=== PATIENT | male | born 1960 | race American Indian/Alaskan Native ===

== ENCOUNTER 2016-05-27 02:29 | Emergency (ER) | payer OTHER, BC ==
[2016-05-27 02:35] VITALS: BP 161/87
[2016-05-27] MEDS ORDERED: HYDROmorphone 1 MG/ML Syringe IM ONE (02:52)
[2016-05-27] MEDS ORDERED: methylPREDNISolone Sodium Succinate 125 MG/2 ML SDV IM ONE (02:52)
--- NOTE | 2016-05-27 02:59 | EDM.PDOC ---
ED HPI Trauma - General Chief Complaint: Lower Extremity Injury/Pain Stated Complaint: GOUT FLAREUP Time Seen by Provider: 05/27/16 02:48 Source: Reports: Patient History Limitations: Reports: No limitations - History of Present Illness INITIAL COMMENTS - FREE TEXT/NARRATIVE: This 56 yo male patient reports to the ED with pain in his right great toe. The patient reports a history of gout and has had previous similar flares in the past. The patient took Naproxen while at home with no symptom relief. The patient reports relief of symptom in the past with a steroid injection, pain medication and a prescription for steroids. Symptom Onset Date: 05/26/16 Occurred Where: home Severity: severe Pain/Injury Location: Reports: lower extremity, right Consciousness: Reports: no loss of consciousness Associated Symptoms: Reports: no other symptoms Allergies/ADRs: Allergies bupropion HCl [From Wellbutrin] Allergy (Severe, Verified 05/27/16 02:35) Anaphylactic Shock venom-honey bee [bee venom (honey bee)] Allergy (Verified 05/27/16 02:35) Anaphylactic Shock Home Medications: Ambulatory Orders Metoprolol Tartrate 100 mg PO DAILY 05/17/13 [Confirmed 05/27/16] Multivitamin with Minerals [Multiple Vitamin] 1 tab PO DAILY 05/17/13 [ Confirmed 05/27/16] Quinapril [Accupril] 40 mg PO DAILY 05/17/13 [Confirmed 05/27/16] Albuterol [Proventil Neb Soln] 2.5 mg NEB ASDIRECTED PRN 12/17/14 [Confirmed 07/08] Budesonide [Pulmicort] 0.5 mg NEB ASDIRECTED PRN 12/17/14 [Confirmed 05/27/16] EPINEPHrine [Epinephrine] 1 dose IM ASDIRECTED PRN 12/17/14 [Confirmed 05/27/16] Simvastatin [Simvastatin] 20 mg PO BEDTIME 12/17/14 [Confirmed 05/27/16] Albuterol [Proventil HFA] 2 puff INH Q4HR PRN 05/27/16 [Confirmed 05/27/16] Beclomethasone Dipropionate [Qvar] 8.7 gm IH DAILY 05/27/16 [Confirmed 05/27/16] Furosemide [Lasix] 20 mg PO DAILY 05/27/16 [Confirmed 04/05/17] Umeclidinium Brm/Vilanterol Tr [Anoro Ellipta 62.5-25 Mcg INH] 1 each IH DAILY 05/27/16 [Confirmed 05/27/16] Past Medical History Cardiovascular History: Reports: High cholesterol, Hypertension Respiratory History: Reports: Asthma, COPD Other Genitourinary History: URETEROLITHIASIS; NEPHROLITHIASIS Musculoskeletal History: Reports: Gout Other Musculoskeletal History: LUMBOSACRAL SPONDYLOSIS WITHOUT MYELOPATHY; L1-2 THROUGH L5-S1 DEGENERATIVE DISC DISEASE; MODERATE CENTRAL L1-2 , MODERATE CENTRAL AND BILATERAL FORAMINAL L4-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; 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; Other Dermatologic History: swelling and redness from hornet bite; ONYCHOMYCOSIS OF TOENAIL - Past Surgical History Other GI Surgeries/Procedures: BARIATIC PROCEDURE-LAP BAND; HEMORRHOIDECTOMY; Other Musculoskeletal Surgeries/Procedures:: CARPAL TUNNEL RELEASE, CORTISONE SHOT IN RIGHT SHOULDER Social & Family History - Tobacco Use Smoking Status *Q: Never Smoker Years of Tobacco use: 20 Used Tobacco, but Quit: Yes Month Tobacco Last Used: 03/29/1996 Second Hand Smoke Exposure: No - Alcohol Use Days Per Week of Alcohol Use: 1 Number of Drinks Per Day: 3 Total Drinks Per Week: 3 - Recreational Drug Use Recreational Drug Use: No Drug Use in Last 12 Months: No Review of Systems - Review of Systems Review Of Systems: ROS reveals no pertinent complaints other than HPI. Trauma Exam - Physical Exam Exam: See Below Exam Limited By: No limitations General Appearance: Reports: alert, WD/WN, moderate distress Head: Reports: atraumatic, normocephalic Eyes: bilateral eye: EOMI, normal inspection, PERRL Ears: Reports: normal external exam, normal canal, hearing grossly normal, normal TMs Nose: Reports: normal inspection, normal mucousa, no blood Throat/Mouth: Reports: Normal inspection, Normal lips, Normal teeth, Normal gums , Normal oropharynx, Normal voice, No airway compromise Neck: Reports: non-tender, full range of motion, normal alignment, normal inspection Respiratory Exam: Reports: no respiratory distress, lungs clear, normal breath sounds Cardiovascular: Reports: normal peripheral pulses, regular rate, rhythm, no edema, no gallop, no JVD, no murmur, no rub GI/Abdominal: Reports: normal bowel sounds, soft, non tender, no organomegaly, no distention, no abnormal bruit, no mass (Male) Exam: Deferred Rectal (Males) Exam: Deferred Back: Reports: full range of motion, normal inspection, non-tender Extremities: Reports: pain with movement, tenderness (Right great toe erythema with tenderness), unable to bear weight 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, no motor/sensory deficits, alert , normal mood/affect, oriented x 3 Skin: Reports: Normal color, Warm/dry Course - Vital Signs Last Recorded V/S: Last Vital Signs Temp 35.5 C 05/27/16 02:31 Pulse 79 05/27/16 02:31 Resp 18 05/27/16 02:31 BP 161/87 H 05/27/16 02:31 Pulse Ox 100 05/27/16 02:31 - Orders/Labs/Meds Meds: Medications Discontinued Medications Generic Name Dose Route Start Last Admin Trade Name Freq PRN Reason Stop Dose Admin Hydromorphone HCl 1 mg 05/27/16 02:52 Dilaudid IM 05/27/16 02:53 ONETIME ONE Methylprednisolone Sodium Succinate 125 mg 05/27/16 02:52 Solu-Medrol IM 05/27/16 02:53 ONETIME ONE Departure - Departure Time of Disposition: 02:56 Disposition: Home, Self-Care 01 Condition: fair Clinical Impression: Gout flare Qualifiers: Gout site: toe Gout etiology: unspecified cause Laterality: right Qualified Code(s): M10.9 - Gout, unspecified Instructions: Gout, [id number] Forms: ED Department Discharge Care Plan Goals: The patient was advised of the examination results during the visit. The patient was given an injection of Dilaudid and an injection of Solu-Medrol while in the ED. The patient was discharged with a script for Prednisone (20 mg ) #10 to take 2 by mouth daily for 5 days. If the patient has any additional symptoms or concerns, the patient should follow-up with his primary care facility or return to the emergency department.
== END 2016-05-27 03:09 | disposition home or self-care (01) ==
LOC: DL.ED 02:29
DX: M10.9 Gout, unspecified (principal); E78.00 Pure hypercholesterolemia, unspecified; I10 Essential (primary) hypertension; J45.909 Unspecified asthma, uncomplicated; J44.9 Chronic obstructive pulmonary disease, unspecified; Z98.84 Bariatric surgery status; Z91.030 Bee allergy status; Z88.8 Allergy status to other drugs, medicaments and biological substances
CPT/HCPCS: 96372; 99283; J1170; J2930

== ENCOUNTER 2016-09-26 10:45 | Emergency (ER) | payer OTHER, BC ==
[2016-09-26 11:06] VITALS: BP 150/104
[2016-09-26] MEDS ORDERED: Acetaminophen/HYDROcodone 325-10 MG Tab PO ONE (11:25)
--- NOTE | 2016-09-26 11:30 | EDM.PDOC ---
Scribed by Marium Hansen 09/26/[address] MD ED HPI GENERAL MEDICAL PROBLEM - General Chief Complaint: Lower Extremity Injury/Pain Stated Complaint: [id number] FELL OFF OF HIS DECK Time Seen by Provider: 09/26/16 10:50 Source of Information: Reports: Patient, RN, RN Notes Reviewed History Limitations: Reports: No Limitations - History of Present Illness INITIAL COMMENTS - FREE TEXT/NARRATIVE: Tripped on last step of deck this morning and "rolled" right foot. Denies any other injury. Very painful to bear weight. Onset: Today Location: Reports: Lower Extremity, Right Quality: Reports: Ache Severity: Severe Improves with: Reports: None Worsens with: Reports: None Associated Symptoms: Reports: No Other Symptoms Right Feet Pain Score (Numeric/FACES): 7 - Related Data Allergies Allergy/AdvReac Type Severity Reaction Status Date / Time bupropion HCl Allergy Severe Anaphylactic Verified 09/26/16 10:58 [From Wellbutrin] Shock venom-honey bee Allergy Anaphylactic Verified 09/26/16 10:58 [bee venom (honey bee)] Shock Home Meds: Home Meds Metoprolol Tartrate 100 mg PO DAILY 05/17/13 [History] Multivitamin with Minerals [Multiple Vitamin] 1 tab PO DAILY 05/17/13 [History] Quinapril [Accupril] 40 mg PO DAILY 05/17/13 [History] Albuterol [Proventil Neb Soln] 2.5 mg NEB ASDIRECTED PRN 12/17/14 [History] Budesonide [Pulmicort] 0.5 mg NEB ASDIRECTED PRN 12/17/14 [History] EPINEPHrine [Epinephrine] 1 dose IM ASDIRECTED PRN 12/17/14 [History] Simvastatin [Simvastatin] 20 mg PO BEDTIME 12/17/14 [History] Albuterol [Proventil HFA] 2 puff INH Q4HR PRN 05/27/16 [History] Beclomethasone Dipropionate [Qvar] 8.7 gm IH DAILY 05/27/16 [History] Furosemide [Lasix] 20 mg PO DAILY 05/27/16 [History] Umeclidinium Brm/Vilanterol Tr [Anoro Ellipta 62.5-25 Mcg INH] 1 each IH DAILY 05/27/16 [History] Past Medical History HEENT History: Reports: None Cardiovascular History: Reports: High Cholesterol, Hypertension Respiratory History: Reports: Asthma, COPD Gastrointestinal History: Reports: None Other Genitourinary History: URETEROLITHIASIS; NEPHROLITHIASIS Musculoskeletal History: Reports: Gout Other Musculoskeletal History: LUMBOSACRAL SPONDYLOSIS WITHOUT MYELOPATHY; L1-2 THROUGH L5-S1 DEGENERATIVE DISC DISEASE; MODERATE CENTRAL L1-2 , MODERATE CENTRAL AND BILATERAL FORAMINAL L4-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; 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; Neurological History: Reports: None Psychiatric History: Reports: None Endocrine/Metabolic History: Reports: None Hematologic History: Reports: None Immunologic History: Reports: None Oncologic (Cancer) History: Reports: None Other Dermatologic History: swelling and redness from hornet bite; ONYCHOMYCOSIS OF TOENAIL - Infectious Disease History Infectious Disease History: Reports: Chicken Pox, Measles - Past Surgical History Other GI Surgeries/Procedures: BARIATIC PROCEDURE-LAP BAND; HEMORRHOIDECTOMY; Other Musculoskeletal Surgeries/Procedures:: CARPAL TUNNEL RELEASE, CORTISONE SHOT IN RIGHT SHOULDER Social & Family History - Tobacco Use Smoking Status *Q: Former Smoker Years of Tobacco use: 20 Packs/Tins Daily: 3 Used Tobacco, but Quit: Yes Month Tobacco Last Used: february Second Hand Smoke Exposure: No - Caffeine Use Caffeine Use: Reports: Coffee, Tea - Alcohol Use Days Per Week of Alcohol Use: 1 Number of Drinks Per Day: 3 Total Drinks Per Week: 3 - Recreational Drug Use Recreational Drug Use: No Drug Use in Last 12 Months: No Review of Systems - Review of Systems Review Of Systems: ROS reveals no pertinent complaints other than HPI. ED EXAM, GENERAL - Physical Exam Exam: See Below Exam Limited By: No Limitations General Appearance: Alert, WD/WN, No Apparent Distress, Obese Neck: Normal Inspection, Supple, Non-Tender, Full Range of Motion Respiratory/Chest: No Respiratory Distress Back Exam: Normal Inspection, Full Range of Motion, NT Extremities: Other (pain and swelling to right lateral midfoot. Tender aft right lateral ankle and foot. Skin intact.) Psychiatric: Normal Affect, Normal Mood Skin Exam: Warm, Dry, Intact, Normal Color, No Rash Course - Vital Signs Last Recorded V/S: Last Vital Signs Temp 36 C 09/26/16 10:54 Pulse 113 H 09/26/16 10:54 Resp 16 09/26/16 10:54 BP 150/104 H 09/26/16 11:05 Pulse Ox 97 09/26/16 10:54 - Orders/Labs/Meds Orders: Active Orders 24 hr Category Date Time Status Ankle Min 3V Rt [CR] Urgent Exams 09/26/16 11:07 Taken Foot Comp Min 3V Rt [CR] Urgent Exams 09/26/16 11:07 Taken Acetaminophen/HYDROcodone [Elton 325-10 MG] Med 09/26/16 11:25 Once 1 tab PO ONETIME ONE DME for Discharge [COMM] Routine Oth 09/26/16 11:24 Ordered DME for Discharge [COMM] Routine Oth 09/26/16 11:24 Ordered - Radiology Interpretation Free Text/Narrative:: X-ray right foot: Proximal 5th metatarsal fracture. See rad report. X-ray right ankle: No fracture. See rad report. Departure - Departure Time of Disposition: 11:26 Disposition: Home, Self-Care 01 Condition: Good Clinical Impression: Fracture of fifth metatarsal bone of right foot - Discharge Information Instructions: Metatarsal Fracture Forms: ED Department Discharge Additional Instructions: RX: Hydrocodone APAP 5mg/325mg. Wear the splint boot, remove only to shower. No weight bearing on the right foot, use crutches. Follow with Dr. Malu Messina. Call Wednesday to schedule an appointment. I have read and agree with the documentation that has been completed regarding this visit. By signing this record, I attest that the documentation was completed in my physical presence and is an accurate record of the encounter.
== END 2016-09-26 11:52 | disposition home or self-care (01) ==
LOC: DL.ED 10:45
DX: S92.351A Displaced fracture of fifth metatarsal bone, right foot, initial encounter for closed fracture (principal); E78.00 Pure hypercholesterolemia, unspecified; I10 Essential (primary) hypertension; J44.9 Chronic obstructive pulmonary disease, unspecified; J45.909 Unspecified asthma, uncomplicated; Z98.84 Bariatric surgery status; Z87.891 Personal history of nicotine dependence; Z88.8 Allergy status to other drugs, medicaments and biological substances; Z91.030 Bee allergy status; Z79.899 Other long term (current) drug therapy; W18.40XA Slipping, tripping and stumbling without falling, unspecified, initial encounter
CPT/HCPCS: 73610; 73630; 99284; A9270

== ENCOUNTER 2017-01-16 22:49 | Emergency (ER) | payer OTHER, BC ==
[2017-01-16 23:02] VITALS: BP 164/94
[2017-01-16] MEDS ORDERED: HYDROmorphone 1 MG/ML Syringe IM ONE (23:14)
[2017-01-16] MEDS ORDERED: methylPREDNISolone Sodium Succinate 125 MG/2 ML SDV IM ONE (23:14)
--- NOTE | 2017-01-16 23:18 | EDM.PDOC ---
ED HPI GENERAL MEDICAL PROBLEM - General Chief Complaint: General Stated Complaint: GOUT FLARE UP [id number] Time Seen by Provider: 01/16/17 23:15 Source of Information: Reports: Patient History Limitations: Reports: No Limitations - History of Present Illness INITIAL COMMENTS - FREE TEXT/NARRATIVE: c/o gout flare up. Right Ankle Pain Score (Numeric/FACES): 7 - Related Data Allergies Allergy/AdvReac Type Severity Reaction Status Date / Time bupropion HCl Allergy Severe Anaphylactic Verified 01/16/17 23:02 [From Wellbutrin] Shock venom-honey bee Allergy Anaphylactic Verified 01/16/17 23:02 [bee venom (honey bee)] Shock Home Meds: Home Meds Metoprolol Tartrate 100 mg PO DAILY 05/17/13 [History] Multivitamin with Minerals [Multiple Vitamin] 1 tab PO DAILY 05/17/13 [History] Quinapril [Accupril] 40 mg PO DAILY 05/17/13 [History] Albuterol [Proventil Neb Soln] 2.5 mg NEB ASDIRECTED PRN 12/17/14 [History] Budesonide [Pulmicort] 0.5 mg NEB ASDIRECTED PRN 12/17/14 [History] EPINEPHrine [Epinephrine] 1 dose IM ASDIRECTED PRN 12/17/14 [History] Simvastatin [Simvastatin] 20 mg PO BEDTIME 12/17/14 [History] Albuterol [Proventil HFA] 2 puff INH Q4HR PRN 05/27/16 [History] Beclomethasone Dipropionate [Qvar] 8.7 gm IH DAILY 05/27/16 [History] Furosemide [Lasix] 20 mg PO DAILY 05/27/16 [History] Umeclidinium Brm/Vilanterol Tr [Anoro Ellipta 62.5-25 Mcg INH] 1 each IH DAILY 05/27/16 [History] Allopurinol [Zyloprim] 300 mg PO DAILY 01/16/17 [History] Past Medical History HEENT History: Reports: None Cardiovascular History: Reports: High Cholesterol, Hypertension Respiratory History: Reports: Asthma, COPD Gastrointestinal History: Reports: None Other Genitourinary History: URETEROLITHIASIS; NEPHROLITHIASIS Musculoskeletal History: Reports: Gout Other Musculoskeletal History: LUMBOSACRAL SPONDYLOSIS WITHOUT MYELOPATHY; L1-2 THROUGH L5-S1 DEGENERATIVE DISC DISEASE; MODERATE CENTRAL L1-2 , MODERATE CENTRAL AND BILATERAL FORAMINAL L4-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; 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; Neurological History: Reports: None Psychiatric History: Reports: None Endocrine/Metabolic History: Reports: None Hematologic History: Reports: None Immunologic History: Reports: None Oncologic (Cancer) History: Reports: None Other Dermatologic History: swelling and redness from hornet bite; ONYCHOMYCOSIS OF TOENAIL - Infectious Disease History Infectious Disease History: Reports: Chicken Pox, Measles - Past Surgical History Other GI Surgeries/Procedures: BARIATIC PROCEDURE-LAP BAND; HEMORRHOIDECTOMY; Other Musculoskeletal Surgeries/Procedures:: CARPAL TUNNEL RELEASE, CORTISONE SHOT IN RIGHT SHOULDER Social & Family History - Tobacco Use Smoking Status *Q: Never Smoker Years of Tobacco use: 20 Packs/Tins Daily: 3 Used Tobacco, but Quit: Yes Month Tobacco Last Used: february Second Hand Smoke Exposure: No - Caffeine Use Caffeine Use: Reports: Coffee, Tea - Alcohol Use Days Per Week of Alcohol Use: 1 Number of Drinks Per Day: 3 Total Drinks Per Week: 3 - Recreational Drug Use Recreational Drug Use: No Drug Use in Last 12 Months: No ED ROS GENERAL - Review of Systems Review Of Systems: ROS reveals no pertinent complaints other than HPI. ED EXAM, GENERAL - Physical Exam Exam: See Below Exam Limited By: No Limitations General Appearance: Alert, WD/WN, Mild Distress, Moderate Distress, Other (pain) Ears: Hearing Grossly Normal Throat/Mouth: Normal Voice, No Airway Compromise Head: Atraumatic Neck: Non-Tender, Full Range of Motion Respiratory/Chest: No Respiratory Distress Cardiovascular: Regular Rate, Rhythm GI/Abdominal: Soft, Non-Tender Extremities: Other (right foot swollen with redness over big toe. ) Neurological: Alert, Oriented, Normal Cognition, No Motor/Sensory Deficits, Other (gait limited to pain) Psychiatric: Tearful Skin Exam: Warm, Dry, Normal Color Lymphatic: No Adenopathy Course - Vital Signs Last Recorded V/S: Last Vital Signs Temp 36.3 C 01/16/17 22:53 Pulse 92 01/16/17 22:53 Resp 20 01/16/17 22:53 BP 164/94 H 01/16/17 22:53 Pulse Ox 98 01/16/17 22:53 - Orders/Labs/Meds Meds: Medications Discontinued Medications Generic Name Dose Route Start Last Admin Trade Name Freddie PRN Reason Stop Dose Admin Hydromorphone HCl 1 mg 01/16/17 23:14 Dilaudid IM 01/16/17 23:15 ONETIME ONE Methylprednisolone Sodium Succinate 125 mg 01/16/17 23:14 Solu-Medrol IM 01/16/17 23:15 ONETIME ONE Departure - Departure Time of Disposition: 23:17 Disposition: Home, Self-Care 01 Condition: Good Clinical Impression: Gout flare Qualifiers: Gout site: toe Gout etiology: unspecified cause Laterality: right Qualified Code(s): M10.9 - Gout, unspecified - Discharge Information Instructions: Gout, [id number] Additional Instructions: 1) elevate leg as much as possible 2) try heat to sore area 3) follow up at clinic rx given; prednisone 20mg bid x 5 days
== END 2017-01-16 23:37 | disposition home or self-care (01) ==
LOC: DL.ED 22:49
DX: M10.9 Gout, unspecified (principal); I10 Essential (primary) hypertension; Z88.6 Allergy status to analgesic agent; Z91.030 Bee allergy status; Z79.899 Other long term (current) drug therapy
CPT/HCPCS: 96372; 99283; J1170; J2930

== ENCOUNTER 2017-06-20 14:34 | Emergency (ER) | payer OTHER, BC ==
--- NOTE | 2017-06-20 15:35 | EDM.PDOC ---
ED HPI GENERAL MEDICAL PROBLEM - General Chief Complaint: Lower Extremity Injury/Pain Stated Complaint: [id number] GOUT Time Seen by Provider: 06/20/17 15:05 Source of Information: Reports: Patient, Family, RN, RN Notes Reviewed History Limitations: Reports: No Limitations - History of Present Illness INITIAL COMMENTS - FREE TEXT/NARRATIVE: Pt presents to the ER with c/o a flare up of gout. He states he is on Allopurinol daily. Pt states he has not eaten or drank anything that should make him have a gout flare up. Pt c/o pain in the left big toe and ankle area. He rates the pain 9/10 when he is standing on it. Denies fever or chills, N/V/D , cp or sob. Onset: Gradual Left Feet Pain Score (Numeric/FACES): 9 - Related Data Allergies Allergy/AdvReac Type Severity Reaction Status Date / Time bupropion HCl Allergy Severe Anaphylactic Verified 06/20/17 14:48 [From Wellbutrin] Shock venom-honey bee Allergy Anaphylactic Verified 06/20/17 14:48 [bee venom (honey bee)] Shock Home Meds: Home Meds Metoprolol Tartrate 100 mg PO DAILY 05/17/13 [History] Multivitamin with Minerals [Multiple Vitamin] 1 tab PO DAILY 05/17/13 [History] Quinapril [Accupril] 40 mg PO DAILY 05/17/13 [History] Albuterol [Proventil Neb Soln] 2.5 mg NEB ASDIRECTED PRN 12/17/14 [History] Budesonide [Pulmicort] 0.5 mg NEB ASDIRECTED PRN 12/17/14 [History] EPINEPHrine [Epinephrine] 1 dose IM ASDIRECTED PRN 12/17/14 [History] Simvastatin 20 mg PO BEDTIME 12/17/14 [History] Albuterol [Proventil HFA] 2 puff INH Q4HR PRN 05/27/16 [History] Beclomethasone Dipropionate [Qvar] 2 puff IH BID 05/27/16 [History] Furosemide [Lasix] 20 mg PO DAILY 05/27/16 [History] Umeclidinium Brm/Vilanterol Tr [Anoro Ellipta 62.5-25 Mcg INH] 1 each IH DAILY 05/27/16 [History] Allopurinol [Zyloprim] 300 mg PO DAILY 01/16/17 [History] Past Medical History HEENT History: Reports: None Cardiovascular History: Reports: High Cholesterol, Hypertension Respiratory History: Reports: Asthma, COPD Gastrointestinal History: Reports: None Other Genitourinary History: URETEROLITHIASIS; NEPHROLITHIASIS Musculoskeletal History: Reports: Gout Other Musculoskeletal History: LUMBOSACRAL SPONDYLOSIS WITHOUT MYELOPATHY; L1-2 THROUGH L5-S1 DEGENERATIVE DISC DISEASE; MODERATE CENTRAL L1-2 , MODERATE CENTRAL AND BILATERAL FORAMINAL L4-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; 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; Neurological History: Reports: None Psychiatric History: Reports: None Endocrine/Metabolic History: Reports: None Hematologic History: Reports: None Immunologic History: Reports: None Oncologic (Cancer) History: Reports: None Other Dermatologic History: swelling and redness from hornet bite; ONYCHOMYCOSIS OF TOENAIL - Infectious Disease History Infectious Disease History: Reports: Chicken Pox, Measles - Past Surgical History Other GI Surgeries/Procedures: BARIATIC PROCEDURE-LAP BAND; HEMORRHOIDECTOMY; Other Musculoskeletal Surgeries/Procedures:: CARPAL TUNNEL RELEASE, CORTISONE SHOT IN RIGHT SHOULDER Social & Family History - Tobacco Use Smoking Status *Q: Former Smoker Years of Tobacco use: 20 Packs/Tins Daily: 3 Used Tobacco, but Quit: Yes Month/Year Tobacco Last Used: february Second Hand Smoke Exposure: No - Caffeine Use Caffeine Use: Reports: Coffee, Tea - Alcohol Use Days Per Week of Alcohol Use: 1 Number of Drinks Per Day: 3 Total Drinks Per Week: 3 - Recreational Drug Use Recreational Drug Use: No Drug Use in Last 12 Months: No Review of Systems - Review of Systems Review Of Systems: ROS reveals no pertinent complaints other than HPI. ED EXAM, GENERAL - Physical Exam Exam: See Below Exam Limited By: No Limitations General Appearance: Alert, WD/WN, Mild Distress Eye Exam: Bilateral Eye: EOMI, Normal Inspection Ears: Normal External Exam, Hearing Grossly Normal Nose: Normal Inspection Throat/Mouth: Normal Inspection, Normal Voice, No Airway Compromise Head: Atraumatic, Normocephalic Neck: Normal Inspection Respiratory/Chest: No Respiratory Distress, Lungs Clear, Normal Breath Sounds Cardiovascular: Normal Peripheral Pulses, Regular Rate, Rhythm, No Gallop, No JVD, No Murmur, No Rub Peripheral Pulses: 2+: Dorsalis Pedis (L), Dorsalis Pedis (R) GI/Abdominal: Normal Bowel Sounds, Soft, Non-Tender (Male) Exam: Deferred Rectal (Males) Exam: Deferred Back Exam: Normal Inspection, Full Range of Motion Extremities: Normal Capillary Refill, Pedal Edema (+1), Limited Range of Motion , Other (Foot pain to the left big toe joints, and left ankle) Neurological: Alert, Oriented, CN II-XII Intact, Normal Cognition, Normal Gait, Normal Reflexes, No Motor/Sensory Deficits Psychiatric: Normal Affect, Normal Mood Skin Exam: Warm, Dry, Intact, Normal Color, No Rash Lymphatic: No Adenopathy Course - Vital Signs Last Recorded V/S: Last Vital Signs Temp 99.9 F 06/20/17 17:04 Pulse 108 H 06/20/17 17:04 Resp 20 06/20/17 17:04 BP 140/77 06/20/17 17:04 Pulse Ox 98 06/20/17 17:04 - Orders/Labs/Meds Orders: Active Orders 24 hr Category Date Time Status CULTURE BLOOD [BC] Stat Lab 06/20/17 16:23 Received Labs: Laboratory Tests 06/20/17 06/20/17 06/20/17 Range/Units 15:16 15:16 15:16 WBC 12.3 H (5.0-10.0) 10^3/uL RBC 4.91 (4.6-6.2) 10^6/uL Hgb 14.3 (14.0-18.0) g/dL Hct 42.5 (40.0-54.0) % MCV 86.6 (80-100) fL MCH 29.1 (27.0-34.0) pg MCHC 33.6 (33.0-35.0) g/dL Plt Count 264 (150-450) 10^3/uL Neut % (Auto) 68.9 (42.2-75.2) % Lymph % (Auto) 18.9 L (20.5-50.1) % [place] % (Auto) 9.8 H (2-8) % Eos % (Auto) 2.0 (1.0-3.0) % Baso % (Auto) 0.4 (0.0-1.0) % ESR 20 H (0-15) mm/hr Sodium 138 (135-145) mmol/L Potassium 4.4 (3.6-5.0) mmol/L Chloride 102 (101-111) mmol/L Carbon Dioxide 28.0 (21.0-31.0) mmol/L Anion Gap 12.4 BUN 11 (7-18) mg/dL Creatinine 1.0 (0.6-1.3) mg/dL Est Cr Clr Drug Dosing 89.46 mL/min Estimated GFR (MDRD) > 60 BUN/Creatinine Ratio 11.00 Glucose 131 H (74-105) mg/dL Lactic Acid (0.5-2.2) mmol/L Uric Acid 6.5 (2.6-7.2) mg/dL Calcium 9.4 (8.4-10.2) mg/dl Total Bilirubin 1.0 (0.2-1.0) mg/dL AST 48 H (10-42) IU/L ALT 57 (10-60) IU/L Alkaline Phosphatase 59 (42-121) IU/L C-Reactive Protein (0.0-1.3) mg/dL Total Protein 7.7 (6.7-8.2) g/dl Albumin 4.2 (3.2-5.5) g/dl Globulin 3.5 Albumin/Globulin Ratio 1.20 06/20/17 06/20/17 Range/Units 15:16 16:23 WBC (5.0-10.0) 10^3/uL RBC (4.6-6.2) 10^6/uL Hgb (14.0-18.0) g/dL Hct (40.0-54.0) % MCV (80-100) fL MCH (27.0-34.0) pg MCHC (33.0-35.0) g/dL Plt Count (150-450) 10^3/uL Neut % (Auto) (42.2-75.2) % Lymph % (Auto) (20.5-50.1) % [place] % (Auto) (2-8) % Eos % (Auto) (1.0-3.0) % Baso % (Auto) (0.0-1.0) % ESR (0-15) mm/hr Sodium (135-145) mmol/L Potassium (3.6-5.0) mmol/L Chloride (101-111) mmol/L Carbon Dioxide (21.0-31.0) mmol/L Anion Gap BUN (7-18) mg/dL Creatinine (0.6-1.3) mg/dL Est Cr Clr Drug Dosing mL/min Estimated GFR (MDRD) BUN/Creatinine Ratio Glucose (74-105) mg/dL Lactic Acid 1.6 (0.5-2.2) mmol/L Uric Acid (2.6-7.2) mg/dL Calcium (8.4-10.2) mg/dl Total Bilirubin (0.2-1.0) mg/dL AST (10-42) IU/L ALT (10-60) IU/L Alkaline Phosphatase (42-121) IU/L C-Reactive Protein 8.2 H (0.0-1.3) mg/dL Total Protein (6.7-8.2) g/dl Albumin (3.2-5.5) g/dl Globulin Albumin/Globulin Ratio Meds: Medications Discontinued Medications Generic Name Dose Route Start Last Admin Trade Name Rohithq PRN Reason Stop Dose Admin Methylprednisolone Sodium Succinate 125 mg 06/20/17 16:55 06/20/17 17:02 Solu-Medrol IM 06/20/17 16:56 125 mg ONETIME ONE Administration Departure - Departure Time of Disposition: 17:08 Disposition: Home, Self-Care 01 Condition: Fair Clinical Impression: Inflammatory arthritis - Discharge Information Instructions: Arthritis, Ubbm-se-Rzal, Joint Pain, Hnji-on-Rvjy Forms: ED Department Discharge Additional Instructions: RX: Prednisone Follow up with your primary care facility Ibuprofen 600-800mg every 8 hours for 1 week. Be sure to take with food. - My Orders Last 24 Hours: My Active Orders 06/20/17 16:23 CULTURE BLOOD [BC] Stat - Assessment/Plan Last 24 Hours: My Active Orders 06/20/17 16:23 CULTURE BLOOD [BC] Stat
[2017-06-20 15:42] LABS: CHLORIDE,CL 102 mmol/L (101-111); SODIUM,NA 138 mmol/L (135-145)
--- NOTE | 2017-06-20 16:16 | CR ---
Clinical history: 57-year-old male pain left foot and ankle (no known injury). Interpretation: Homogeneous normal bone density. Mild pes cavus and small bone spurs at the insertion of the Achilles tendon and plantar aponeurosis o n the os calcis (heel spurs). No sign of foreign body or inflammatory periostitis and no appreciable arthritic degenerative changes . Mild soft tissue swelling over the dorsum of foot but no sign of underlying fracture or dislocation. No pathologic skeletal lesions. CONCLUSION: Prominent heel spurs. Mild soft tissue swelling dorsum of foot but no sign of underlying fracture or infection. No signific ant arthritic degenerative change.
[2017-06-20] MEDS ORDERED: methylPREDNISolone Sodium Succinate 125 MG/2 ML SDV IM ONE (16:55)
[2017-06-20 17:12] VITALS: BP 140/77
== END 2017-06-20 17:09 | disposition home or self-care (01) ==
LOC: DL.ED 14:34
DX: M19.072 Primary osteoarthritis, left ankle and foot (principal); E78.00 Pure hypercholesterolemia, unspecified; I10 Essential (primary) hypertension; Z88.8 Allergy status to other drugs, medicaments and biological substances; Z91.030 Bee allergy status; Z79.899 Other long term (current) drug therapy; Z87.891 Personal history of nicotine dependence
CPT/HCPCS: 36415; 73630; 80053; 83605; 84550; 85025; 85651; 86140; 87040; 96372; 99283; J2930

== ENCOUNTER 2019-01-22 08:06 | Inpatient (IN) | payer OTHER, BC ==
[2019-01-22] MEDS ORDERED: Albuterol/Ipratropium 3.0-0.5 MG/3 ML Neb Soln NEB ONE (08:57)
--- NOTE | 2019-01-22 09:15 | EDM.PDOC ---
ED HPI GENERAL MEDICAL PROBLEM - General Chief Complaint: Respiratory Problem Stated Complaint: PNEUMONIA Time Seen by Provider: 01/22/19 08:50 Source of Information: Reports: Patient History Limitations: Reports: No Limitations - History of Present Illness INITIAL COMMENTS - FREE TEXT/NARRATIVE: This 58 yo male patient reports to the ED with increased shortness of breath and a productive cough. The patient reports his chest cold started last week. The patient was seen Wednesday (02/19/19) at the [facility], diagnosed with the "start of pneumonia", given Rocephin shot, started on Doxycline and Prednisone. The patient reports he has been doing his nebulizer treatments used at 0700, but getting no relief. The patient reports he is currently not having pain. The patient reports he is having a hard time breathing and has been using accessory muscles to breath. The patient has been coughing up brownish sputum. The patient reports he has a history of COPD and Asthma. The patient reports he has a weak immune system. The patient reports he has been taking his medications as prescribed, but getting no relief. 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, Home Treatments, Other Medication (s) - Related Data Allergies Allergy/AdvReac Type Severity Reaction Status Date / Time bupropion HCl Allergy Severe Anaphylactic Verified 01/22/19 08:18 [From Wellbutrin] Shock Home Meds: Home Meds Metoprolol Tartrate 100 mg PO DAILY 05/17/13 [History] Multivitamin with Minerals [Multiple Vitamin] 1 tab PO DAILY 05/17/13 [History] Quinapril [Accupril] 40 mg PO DAILY 05/17/13 [History] Albuterol [Proventil Neb Soln] 2.5 mg NEB ASDIRECTED PRN 12/17/14 [History] Budesonide [Pulmicort] 0.5 mg NEB ASDIRECTED PRN 12/17/14 [History] Simvastatin 20 mg PO BEDTIME 12/17/14 [History] Albuterol [Proventil HFA] 2 puff INH Q4HR PRN 05/27/16 [History] Beclomethasone Dipropionate [Qvar] 2 puff IH BID 05/27/16 [History] Umeclidinium Brm/Vilanterol Tr [Anoro Ellipta 62.5-25 Mcg INH] 1 each IH DAILY 05/27/16 [History] Allopurinol [Zyloprim] 300 mg PO DAILY 01/16/17 [History] Past Medical History HEENT History: Reports: None Cardiovascular History: Reports: High Cholesterol, Hypertension Respiratory History: Reports: Asthma, COPD Gastrointestinal History: Reports: None Other Genitourinary History: URETEROLITHIASIS; NEPHROLITHIASIS Musculoskeletal History: Reports: Gout Other Musculoskeletal History: LUMBOSACRAL SPONDYLOSIS WITHOUT MYELOPATHY; L1-2 THROUGH L5-S1 DEGENERATIVE DISC DISEASE; MODERATE CENTRAL L1-2 , MODERATE CENTRAL AND BILATERAL FORAMINAL L4-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; 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; Neurological History: Reports: None Psychiatric History: Reports: None Endocrine/Metabolic History: Reports: None Hematologic History: Reports: None Immunologic History: Reports: None Oncologic (Cancer) History: Reports: None Other Dermatologic History: swelling and redness from hornet bite; ONYCHOMYCOSIS OF TOENAIL - Infectious Disease History Infectious Disease History: Reports: Chicken Pox, Measles - Past Surgical History Other GI Surgeries/Procedures: BARIATIC PROCEDURE-LAP BAND; HEMORRHOIDECTOMY; Other Musculoskeletal Surgeries/Procedures:: CARPAL TUNNEL RELEASE, CORTISONE SHOT IN RIGHT SHOULDER Social & Family History - Tobacco Use Smoking Status *Q: Former Smoker Years of Tobacco use: 20 Packs/Tins Daily: 2 Used Tobacco, but Quit: No Month/Year Tobacco Last Used: february Second Hand Smoke Exposure: No - Caffeine Use Caffeine Use: Reports: Coffee, Tea - Recreational Drug Use Recreational Drug Use: No ED ROS GENERAL - Review of Systems Review Of Systems: Comprehensive ROS is negative, except as noted in HPI. ED EXAM, GENERAL - Physical Exam Exam: See Below Exam Limited By: No Limitations General Appearance: Alert, WD/WN, Moderate Distress, Obese Eye Exam: Bilateral Eye: EOMI, Normal Inspection, PERRL Ears: Normal External Exam, Normal Canal, Hearing Grossly Normal, Normal TMs Nose: Normal Inspection, Normal Mucosa, No Blood Throat/Mouth: Normal Inspection, Normal Lips, Normal Teeth, Normal Gums, Normal Oropharynx, Normal Voice, No Airway Compromise Head: Atraumatic, Normocephalic Neck: Normal Inspection, Supple, Non-Tender, Full Range of Motion Respiratory/Chest: Rhonchi, Wheezing, Prolonged Expiration Cardiovascular: Normal Peripheral Pulses, Regular Rate, Rhythm, No Edema, No Gallop, No JVD, No Murmur, No Rub GI/Abdominal: Normal Bowel Sounds, Soft, Non-Tender, No Organomegaly, No Distention, No Abnormal Bruit, No Mass, Other (obese) (Male) Exam: Deferred Rectal (Males) Exam: Deferred Back Exam: Normal Inspection, Full Range of Motion, NT Extremities: Normal Inspection, Normal Range of Motion, Non-Tender, Normal Capillary Refill, No Pedal Edema Neurological: Alert, Oriented, CN II-XII Intact, Normal Cognition, Normal Gait, Normal Reflexes, No Motor/Sensory Deficits Psychiatric: Normal Affect, Normal Mood Skin Exam: Warm, Dry, Intact, Normal Color, No Rash Lymphatic: No Adenopathy Course - Vital Signs Last Recorded V/S: Last Vital Signs Temp 36.7 C 01/22/19 08:12 Pulse 85 01/22/19 09:03 Resp 20 01/22/19 08:12 BP 163/101 H 01/22/19 08:12 Pulse Ox 93 L 01/22/19 08:12 - Orders/Labs/Meds Orders: Active Orders 24 hr Category Date Time Status EKG Documentation Completion [RC] URGENT Care 01/22/19 08:26 Active RT Aerosol Therapy [RC] ASDIRECTED Care 01/22/19 08:57 Ordered CULTURE BLOOD [BC] Stat Lab 01/22/19 08:26 Ordered CULTURE BLOOD [BC] Stat Lab 01/22/19 09:19 Ordered Labs: Laboratory Tests 01/22/19 01/22/19 01/22/19 Range/Units 08:48 08:48 08:48 WBC 8.3 (5.0-10.0) 10^3/uL RBC 4.71 (4.6-6.2) 10^6/uL Hgb 14.1 (14.0-18.0) g/dL Hct 42.2 (40.0-54.0) % MCV 89.6 D (80-100) fL MCH 29.9 (27.0-34.0) pg MCHC 33.4 (33.0-35.0) g/dL Plt Count 227 (150-450) 10^3/uL Neut % (Auto) 65.6 (42.2-75.2) % Lymph % (Auto) 21.7 (20.5-50.1) % [place] % (Auto) 11.2 H (2-8) % Eos % (Auto) 1.1 (1.0-3.0) % Baso % (Auto) 0.4 (0.0-1.0) % Sodium 138 (135-145) mmol/L Potassium 4.0 (3.6-5.0) mmol/L Chloride 100 L (101-111) mmol/L Carbon Dioxide 29.0 (21.0-31.0) mmol/L Anion Gap 13.0 BUN 10 (7-18) mg/dL Creatinine 0.9 (0.6-1.3) mg/dL Est Cr Clr Drug Dosing 95.29 mL/min Estimated GFR (MDRD) > 60 BUN/Creatinine Ratio 11.11 Glucose 143 H (74-105) mg/dL Lactic Acid 2.3 H (0.5-2.2) mmol/L Calcium 8.8 (8.4-10.2) mg/dl Total Bilirubin 1.1 H (0.2-1.0) mg/dL AST 29 (10-42) IU/L ALT 38 (10-60) IU/L Alkaline Phosphatase 62 (42-121) IU/L Troponin I < 0.02 (0.00-0.02) ng/ml B-Natriuretic Peptide (0-100) pg/ml Total Protein 7.5 (6.7-8.2) g/dl Albumin 4.0 (3.2-5.5) g/dl Globulin 3.5 Albumin/Globulin Ratio 1.14 01/22/19 Range/Units 08:48 WBC (5.0-10.0) 10^3/uL RBC (4.6-6.2) 10^6/uL Hgb (14.0-18.0) g/dL Hct (40.0-54.0) % MCV (80-100) fL MCH (27.0-34.0) pg MCHC (33.0-35.0) g/dL Plt Count (150-450) 10^3/uL Neut % (Auto) (42.2-75.2) % Lymph % (Auto) (20.5-50.1) % [place] % (Auto) (2-8) % Eos % (Auto) (1.0-3.0) % Baso % (Auto) (0.0-1.0) % Sodium (135-145) mmol/L Potassium (3.6-5.0) mmol/L Chloride (101-111) mmol/L Carbon Dioxide (21.0-31.0) mmol/L Anion Gap BUN (7-18) mg/dL Creatinine (0.6-1.3) mg/dL Est Cr Clr Drug Dosing mL/min Estimated GFR (MDRD) BUN/Creatinine Ratio Glucose (74-105) mg/dL Lactic Acid (0.5-2.2) mmol/L Calcium (8.4-10.2) mg/dl Total Bilirubin (0.2-1.0) mg/dL AST (10-42) IU/L ALT (10-60) IU/L Alkaline Phosphatase (42-121) IU/L Troponin I (0.00-0.02) ng/ml B-Natriuretic Peptide 10 (0-100) pg/ml Total Protein (6.7-8.2) g/dl Albumin (3.2-5.5) g/dl Globulin Albumin/Globulin Ratio Meds: Medications Discontinued Medications Generic Name Dose Route Start Last Admin Trade Name Freq PRN Reason Stop Dose Admin Albuterol/Ipratropium 3 ml 01/22/19 08:57 01/22/19 09:03 Duoneb 3.0-0.5 Mg/3 Ml NEB 01/22/19 08:58 3 ml ONETIME ONE Administration Departure - Departure Time of Disposition: 09:36 Disposition: Admitted As Inpatient 66 Condition: Poor Clinical Impression: COPD exacerbation Asthma Qualifiers: Asthma severity: moderate Asthma persistence: persistent Asthma complication type: with acute exacerbation Qualified Code(s): J45.41 - Moderate persistent asthma with (acute) exacerbation - Discharge Information *PRESCRIPTION DRUG MONITORING PROGRAM REVIEWED*: Not Applicable *COPY OF PRESCRIPTION DRUG MONITORING REPORT IN PATIENT ROSE: Not Applicable Care Plan Goals: Discussed the patient's history, examination, labs and x-ray results with Dr. Arshad. Dr. Arshad accepted the patient for continued evaluation and treatment as an observation patient at [facility]. - My Orders Last 24 Hours: My Active Orders 01/22/19 08:26 EKG Documentation Completion [RC] URGENT CULTURE BLOOD [BC] Stat 01/22/19 08:57 RT Aerosol Therapy [RC] ASDIRECTED 01/22/19 09:19 CULTURE BLOOD [BC] Stat - Assessment/Plan Last 24 Hours: My Active Orders 01/22/19 08:26 EKG Documentation Completion [RC] URGENT CULTURE BLOOD [BC] Stat 01/22/19 08:57 RT Aerosol Therapy [RC] ASDIRECTED 01/22/19 09:19 CULTURE BLOOD [BC] Stat
[2019-01-22 09:17] LABS: CHLORIDE,CL 100 mmol/L (101-111); SODIUM,NA 138 mmol/L (135-145)
[2019-01-22] MEDS ORDERED: Albuterol 6.7 GM Inhaler INH PRN (10:30)
[2019-01-22] MEDS ORDERED: methylPREDNISolone Sod Succ 40 MG in Sodium Chloride 0.9% 100 ML IV SCH (10:30)
[2019-01-22] MEDS ORDERED: Albuterol 0.083% 2.5 MG/3 ML Neb Soln NEB PRN ×2 (10:30→12:05)
[2019-01-22] MEDS ORDERED: Budesonide 0.5 MG/2 ML Neb Susp NEB PRN (10:30)
[2019-01-22] MEDS ORDERED: Albuterol/Ipratropium 3.0-0.5 MG/3 ML Neb Soln NEB SCH (10:30)
--- NOTE | 2019-01-22 10:31 | PCM.HP ---
H&P History of Present Illness - General Date of Service: 01/22/19 Admit Problem/Dx: Admission Diagnosis/Problem Admission Diagnosis/Problem COPD not affecting current episode of care - History of Present Illness Initial Comments - Free Text/Narative: Mr. Cavazos is a 58 yo M with past medical history significant for COPD, severe sleep apnea noncompliant with CPAP, morbid obesity, hypertension, gout who presented to the emergency room with COPD exacerbation. Patient said that he developed cold symptoms proximately 1 week ago. Symptoms continued to get worse he got to the point where he is unable to walk for more than few steps without feeling significantly short of breath. Patient presented to the emergency room for further care. In the ED, patient was given nebulizer with some improvement in symptoms. Of note, patient was seen by his primary care provider and was started on prednisone and doxycycline without improvement. On interview, patient said that he does not have any sick contact. He reports noncompliance with CPAP. He quit smoking approximately 20 years ago. - Related Data Allergies/Adverse Reactions: Allergies Allergy/AdvReac Type Severity Reaction Status Date / Time bupropion HCl Allergy Severe Anaphylactic Verified 01/22/19 10:19 [From Wellbutrin] Shock Home Medications: Home Meds Multivitamin with Minerals [Multiple Vitamin] 1 tab PO DAILY 05/17/13 [History] Quinapril [Accupril] 40 mg PO DAILY 05/17/13 [History] Albuterol [Proventil Neb Soln] 2.5 mg NEB ASDIRECTED PRN 12/17/14 [History] Budesonide [Pulmicort] 0.5 mg NEB ASDIRECTED PRN 12/17/14 [History] Simvastatin 20 mg PO BEDTIME 12/17/14 [History] Albuterol [Proventil HFA] 2 puff INH Q4HR PRN 05/27/16 [History] Beclomethasone Dipropionate [Qvar] 2 puff IH BID 05/27/16 [History] Umeclidinium Brm/Vilanterol Tr [Anoro Ellipta 62.5-25 Mcg INH] 1 each IH DAILY 05/27/16 [History] Allopurinol [Zyloprim] 300 mg PO DAILY 01/16/17 [History] Metoprolol Succinate 200 mg PO DAILY 01/22/19 [History] amLODIPine [Norvasc] 5 mg PO DAILY 01/22/19 [History] metFORMIN [Glucophage] 500 mg PO DAILY 01/22/19 [History] Past Medical History HEENT History: Reports: None Cardiovascular History: Reports: High Cholesterol, Hypertension Respiratory History: Reports: Asthma, COPD Gastrointestinal History: Reports: None Other Genitourinary History: URETEROLITHIASIS; NEPHROLITHIASIS Musculoskeletal History: Reports: Gout Other Musculoskeletal History: LUMBOSACRAL SPONDYLOSIS WITHOUT MYELOPATHY; L1-2 THROUGH L5-S1 DEGENERATIVE DISC DISEASE; MODERATE CENTRAL L1-2 , MODERATE CENTRAL AND BILATERAL FORAMINAL L4-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; 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; Neurological History: Reports: None Psychiatric History: Reports: None Endocrine/Metabolic History: Reports: None Hematologic History: Reports: None Immunologic History: Reports: None Oncologic (Cancer) History: Reports: None Other Dermatologic History: swelling and redness from hornet bite; ONYCHOMYCOSIS OF TOENAIL - Infectious Disease History Infectious Disease History: Reports: Chicken Pox, Measles - Past Surgical History Other GI Surgeries/Procedures: BARIATIC PROCEDURE-LAP BAND; HEMORRHOIDECTOMY; Other Musculoskeletal Surgeries/Procedures:: CARPAL TUNNEL RELEASE, CORTISONE SHOT IN RIGHT SHOULDER Social & Family History - Tobacco Use Smoking Status *Q: Former Smoker Years of Tobacco use: 20 Packs/Tins Daily: 2.5 Used Tobacco, but Quit: Yes Month/Year Tobacco Last Used: 12/1998 Second Hand Smoke Exposure: Yes - Caffeine Use Caffeine Use: Reports: Coffee - Alcohol Use Days Per Week of Alcohol Use: 1 Number of Drinks Per Day: 1 Total Drinks Per Week: 1 Date of Last Drink: 01/15/19 Time of Last Drink: 21:00 - Recreational Drug Use Recreational Drug Use: No H&P Review of Systems - Review of Systems: Review Of Systems: Comprehensive ROS is negative, except as noted in HPI. Exam - Exam Exam: See Below - Vital Signs Vital Signs: Last Vital Signs Temp 36.3 C 01/22/19 10:00 Pulse 90 01/22/19 10:00 Resp 24 H 01/22/19 10:00 BP 167/100 H 01/22/19 10:00 Pulse Ox 93 L 01/22/19 10:00 Weight: 150.411 kg - Exam General: Alert, Oriented Lungs: Wheezing Cardiovascular: Regular Rate, Regular Rhythm GI/Abdominal Exam: Normal Bowel Sounds, Soft, Non-Tender Extremities: Normal Inspection, No Pedal Edema Skin: Warm, Dry, Intact Psychiatric: Alert, Normal Affect, Normal Mood - Patient Data Lab Results Last 24 hrs: Laboratory Results - last 24 hr 01/22/19 01/22/19 01/22/19 Range/Units 08:48 08:48 08:48 WBC 8.3 (5.0-10.0) 10^3/uL RBC 4.71 (4.6-6.2) 10^6/uL Hgb 14.1 (14.0-18.0) g/dL Hct 42.2 (40.0-54.0) % MCV 89.6 D (80-100) fL MCH 29.9 (27.0-34.0) pg MCHC 33.4 (33.0-35.0) g/dL Plt Count 227 (150-450) 10^3/uL Neut % (Auto) 65.6 (42.2-75.2) % Lymph % (Auto) 21.7 (20.5-50.1) % [place] % (Auto) 11.2 H (2-8) % Eos % (Auto) 1.1 (1.0-3.0) % Baso % (Auto) 0.4 (0.0-1.0) % Sodium 138 (135-145) mmol/L Potassium 4.0 (3.6-5.0) mmol/L Chloride 100 L (101-111) mmol/L Carbon Dioxide 29.0 (21.0-31.0) mmol/L Anion Gap 13.0 BUN 10 (7-18) mg/dL Creatinine 0.9 (0.6-1.3) mg/dL Est Cr Clr Drug Dosing 95.29 mL/min Estimated GFR (MDRD) > 60 BUN/Creatinine Ratio 11.11 Glucose 143 H (74-105) mg/dL Lactic Acid 2.3 H (0.5-2.2) mmol/L Calcium 8.8 (8.4-10.2) mg/dl Total Bilirubin 1.1 H (0.2-1.0) mg/dL AST 29 (10-42) IU/L ALT 38 (10-60) IU/L Alkaline Phosphatase 62 (42-121) IU/L Troponin I < 0.02 (0.00-0.02) ng/ml B-Natriuretic Peptide (0-100) pg/ml Total Protein 7.5 (6.7-8.2) g/dl Albumin 4.0 (3.2-5.5) g/dl Globulin 3.5 Albumin/Globulin Ratio 1.14 01/22/19 Range/Units 08:48 WBC (5.0-10.0) 10^3/uL RBC (4.6-6.2) 10^6/uL Hgb (14.0-18.0) g/dL Hct (40.0-54.0) % MCV (80-100) fL MCH (27.0-34.0) pg MCHC (33.0-35.0) g/dL Plt Count (150-450) 10^3/uL Neut % (Auto) (42.2-75.2) % Lymph % (Auto) (20.5-50.1) % [place] % (Auto) (2-8) % Eos % (Auto) (1.0-3.0) % Baso % (Auto) (0.0-1.0) % Sodium (135-145) mmol/L Potassium (3.6-5.0) mmol/L Chloride (101-111) mmol/L Carbon Dioxide (21.0-31.0) mmol/L Anion Gap BUN (7-18) mg/dL Creatinine (0.6-1.3) mg/dL Est Cr Clr Drug Dosing mL/min Estimated GFR (MDRD) BUN/Creatinine Ratio Glucose (74-105) mg/dL Lactic Acid (0.5-2.2) mmol/L Calcium (8.4-10.2) mg/dl Total Bilirubin (0.2-1.0) mg/dL AST (10-42) IU/L ALT (10-60) IU/L Alkaline Phosphatase (42-121) IU/L Troponin I (0.00-0.02) ng/ml B-Natriuretic Peptide 10 (0-100) pg/ml Total Protein (6.7-8.2) g/dl Albumin (3.2-5.5) g/dl Globulin Albumin/Globulin Ratio Result Diagrams: 01/22/19 08:48 01/22/19 08:48 Problem List Initiated/Reviewed/Updated: Yes Orders Last 24hrs: Active Orders 24 hr Category Date Time Status Admission Diagnosis [ADT] Urgent ADT 01/22/19 09:40 Ordered Admission Status [Patient Status] [ADT] Routine ADT 01/22/19 09:40 Active Admission Status [Patient Status] [ADT] Routine ADT 01/22/19 09:41 Active Cardiac Monitoring [RC] CONTINUOUS Care 01/22/19 10:26 Ordered EKG Documentation Completion [RC] URGENT Care 01/22/19 08:26 Active Intake and Output [RC] QSHIFT Care 01/22/19 10:26 Ordered Oxygen Therapy [RC] PRN Care 01/22/19 10:26 Ordered Pulse Oximetry [RC] CONTINUOUS Care 01/22/19 10:26 Ordered RT Aerosol Therapy [RC] ASDIRECTED Care 01/22/19 08:57 Active RT Aerosol Therapy [RC] ASDIRECTED Care 01/22/19 10:27 Ordered Up With Assistance [RC] ASDIRECTED Care 01/22/19 10:26 Ordered VTE/DVT Education [RC] PER UNIT ROUTINE Care 01/22/19 10:26 Ordered Vital Signs [RC] Q4H Care 01/22/19 10:26 Ordered Regular Diet [DIET] Diet 01/22/19 Lunch Ordered CBC WITH AUTO DIFF [HEME] AM Lab 01/23/19 05:11 Ordered COMPREHENSIVE METABOLIC PN,CMP [CHEM] AM Lab 01/23/19 05:11 Ordered CULTURE BLOOD [BC] Stat Lab 01/22/19 08:48 Received CULTURE BLOOD [BC] Stat Lab 01/22/19 09:26 Received MAGNESIUM [CHEM] AM Lab 01/23/19 05:11 Ordered PHOSPHORUS [CHEM] AM Lab 01/23/19 05:11 Ordered Albuterol [Proventil HFA] Med 01/22/19 10:30 Ordered 2 puff INH Q4HR PRN Albuterol [Proventil Neb Soln] Med 01/22/19 10:30 Ordered 2.5 mg NEB ASDIRECTED PRN Albuterol/Ipratropium [DuoNeb 3.0-0.5 MG/3 ML] Med 01/22/19 10:30 Ordered 3 ml NEB Q4H Allopurinol [Zyloprim] Med 01/23/19 09:00 Ordered 300 mg PO DAILY Beclomethasone Dipropionate [Qvar] Med 01/22/19 21:00 Ordered 2 puff IH BID Budesonide [Pulmicort] Med 01/22/19 10:30 Ordered 0.5 mg NEB ASDIRECTED PRN Heparin Sodium Med 01/22/19 14:00 Ordered 5,000 units SUBCUT Q8HR Metoprolol Tartrate Med 01/23/19 09:00 Ordered 100 mg PO DAILY Piperacillin/Tazobactam [Zosyn] 3.375 gm Med 01/22/19 10:30 Ordered Sodium Chloride 0.9% [Normal Saline] 100 ml IV Q6H Quinapril [Accupril] Med 01/23/19 09:00 Ordered 40 mg PO DAILY Simvastatin [Simvastatin] Med 01/22/19 21:00 Ordered 20 mg PO BEDTIME Umeclidinium Brm/Vilanterol Tr [Anoro Ellipta 62.5-25 Med 01/23/19 09:00 Ordered MCG] 1 each IH DAILY methylPREDNISolone Sod Succ [Solu-MEDROL] 40 mg Med 01/22/19 10:30 Ordered Sodium Chloride 0.9% [Normal Saline] 100 ml IV Q6H Resuscitation Status Routine Resus Stat 01/22/19 10:26 Ordered Medication Orders Albuterol (Proventil Hfa) gm INH Q4HR PRN PRN Reason: Wheezing Albuterol (Proventil Neb Soln) 2.5 mg NEB ASDIRECTED PRN PRN Reason: Shortness of Breath Albuterol/Ipratropium (Duoneb 3.0-0.5 Mg/3 Ml) 3 ml NEB Q4H [facility] Allopurinol (Zyloprim) 300 mg PO DAILY [facility] Heparin Sodium (Porcine) (Heparin Sodium) 5,000 units SUBCUT Q8HR [facility] Methylprednisolone Sodium Succinate 40 mg/ Sodium Chloride 100.32 mls @ 100 mls /hr IV Q6H [facility] Piperacillin Sod/Tazobactam (Sod 3.375 gm/ Sodium Chloride) 100 mls @ 200 mls/ hr IV Q6H [facility] Assessment/Plan Comment:: COPD exacerbation We will start patient on IV Solu-Medrol, IV Zosyn We will schedule nebulizer Wean down oxygen as tolerated EILEEN Patient is noncompliant, discussed with patient in details risks of noncompliance with CPAP Patient has seen functioning at home Hypertension Restart home meds Gout Allopurinol Hyperlipidemia Simvastatin DVT prophylaxis Heparin
[2019-01-22] MEDS: methylPREDNISolone Sodium Succinate 40 MG/1 ML SDV IV SCH ×3 (11:18→22:29)
[2019-01-22] MEDS: Piperacillin/Tazobactam 3.375 GM in Sodium Chloride 0.9% 100 ML IV SCH ×3 (11:24→22:29)
[2019-01-22] MEDS: Albuterol/Ipratropium 3.0-0.5 MG/3 ML Neb Soln NEB SCH ×4 (11:31→22:41)
[2019-01-22] MEDS: Sodium Chloride 0.9% 10 ML Syringe FLUSH PRN ×3 (12:32→22:29)
[2019-01-22] MEDS: Heparin Sodium 5,000 Units/ML Vial SUBCUT SCH ×2 (14:10→22:36)
[2019-01-22] MEDS ORDERED: Albuterol 6.7 GM Inhaler**OWN MED INH PRN (14:58)
[2019-01-22] MEDS: Budesonide 0.5 MG/2 ML Neb Susp NEB SCH (18:46)
[2019-01-22] MEDS ORDERED: Metoprolol Tartrate 50 MG Tab PO SCH (21:00)
[2019-01-22] MEDS: METOPROLOL SUCCINATE 200 MG PO SCH (22:25)
[2019-01-22] MEDS: BECLOMETHASONE DIPROPIONATE IH SCH (22:26)
[2019-01-22] MEDS: Simvastatin 10 MG Tab PO SCH (22:26)
[2019-01-22] MEDS: Insulin Lispro 100 Units/ML 3 ML Vial SUBCUT SCH (22:38)
[2019-01-23] MEDS: Albuterol/Ipratropium 3.0-0.5 MG/3 ML Neb Soln NEB SCH ×6 (03:13→22:47)
[2019-01-23] MEDS: Sodium Chloride 0.9% 10 ML Syringe FLUSH PRN ×4 (04:03→16:34)
[2019-01-23] MEDS: Piperacillin/Tazobactam 3.375 GM in Sodium Chloride 0.9% 100 ML IV SCH ×4 (04:03→22:47)
[2019-01-23] MEDS: methylPREDNISolone Sodium Succinate 40 MG/1 ML SDV IV SCH ×4 (04:03→22:47)
[2019-01-23] MEDS: Heparin Sodium 5,000 Units/ML Vial SUBCUT SCH ×3 (06:09→22:46)
[2019-01-23] MEDS: Budesonide 0.5 MG/2 ML Neb Susp NEB SCH ×2 (07:17→18:21)
[2019-01-23 07:25] LABS: ANION GAP 16.7; CHLORIDE,CL 98 mmol/L (101-111); SODIUM,NA 136 mmol/L (135-145)
[2019-01-23] MEDS: amLODIPine 5 MG Tab**OWN MED PO SCH (09:05)
[2019-01-23] MEDS: ALLOPURINOL 300 MG PO SCH (09:05)
[2019-01-23] MEDS: Insulin Lispro 100 Units/ML 3 ML Vial SUBCUT SCH ×4 (09:06→22:44)
[2019-01-23] MEDS: Umeclidinium Brm/Vilanterol Tr [Anoro Ellipta 62.5-25 Mcg**OWN MED IH SCH (09:08)
[2019-01-23] MEDS: QUINAPRIL 40 MG PO SCH (09:08)
[2019-01-23] MEDS: BECLOMETHASONE DIPROPIONATE IH SCH ×2 (09:10→22:43)
--- NOTE | 2019-01-23 10:04 | PCM.PN ---
- General Info Date of Service: 01/23/19 Admission Dx/Problem (Free Text): Admission Diagnosis/Problem Admission Diagnosis/Problem COPD exacerbation Subjective Update: Patient feels much better today. He feels that his breathing is easier. He slept well last night. He denies any major complaints. - Patient Data Vitals - Most Recent: Last Vital Signs Temp 35.9 C 01/23/19 07:45 Pulse 82 01/23/19 07:45 Resp 22 H 01/23/19 07:45 BP 149/81 H 01/23/19 09:05 Pulse Ox 92 L 01/23/19 07:45 Weight - Most Recent: 150.411 kg I&O - Last 24 Hours: Intake & Output 01/22/19 01/23/19 01/23/19 22:59 06:59 14:59 Intake Total 800 600 200 Output Total 1775 900 Balance -975 -300 200 Lab Results Last 24 Hours: Laboratory Results - last 24 hr 01/22/19 01/22/19 01/23/19 Range/Units 16:57 21:03 06:40 WBC 12.4 H (5.0-10.0) 10^3/uL RBC 4.65 (4.6-6.2) 10^6/uL Hgb 13.9 L (14.0-18.0) g/dL Hct 41.0 (40.0-54.0) % MCV 88.2 (80-100) fL MCH 29.9 (27.0-34.0) pg MCHC 33.9 (33.0-35.0) g/dL Plt Count 245 (150-450) 10^3/uL Neut % (Auto) 82.3 H (42.2-75.2) % Lymph % (Auto) 12.3 L (20.5-50.1) % [place] % (Auto) 5.3 (2-8) % Eos % (Auto) 0.0 L (1.0-3.0) % Baso % (Auto) 0.1 (0.0-1.0) % Sodium (135-145) mmol/L Potassium (3.6-5.0) mmol/L Chloride (101-111) mmol/L Carbon Dioxide (21.0-31.0) mmol/L Anion Gap BUN (7-18) mg/dL Creatinine (0.6-1.3) mg/dL Est Cr Clr Drug Dosing mL/min Estimated GFR (MDRD) BUN/Creatinine Ratio Glucose (74-105) mg/dL POC Glucose 176 H 247 H (70-105) mg/dl Calcium (8.4-10.2) mg/dl Phosphorus (2.5-4.6) mg/dL Magnesium (1.8-2.5) mg/dL Total Bilirubin (0.2-1.0) mg/dL AST (10-42) IU/L ALT (10-60) IU/L Alkaline Phosphatase (42-121) IU/L Total Protein (6.7-8.2) g/dl Albumin (3.2-5.5) g/dl Globulin Albumin/Globulin Ratio 01/23/19 01/23/19 Range/Units 06:40 07:26 WBC (5.0-10.0) 10^3/uL RBC (4.6-6.2) 10^6/uL Hgb (14.0-18.0) g/dL Hct (40.0-54.0) % MCV (80-100) fL MCH (27.0-34.0) pg MCHC (33.0-35.0) g/dL Plt Count (150-450) 10^3/uL Neut % (Auto) (42.2-75.2) % Lymph % (Auto) (20.5-50.1) % [place] % (Auto) (2-8) % Eos % (Auto) (1.0-3.0) % Baso % (Auto) (0.0-1.0) % Sodium 136 (135-145) mmol/L Potassium 4.7 (3.6-5.0) mmol/L Chloride 98 L (101-111) mmol/L Carbon Dioxide 26.0 (21.0-31.0) mmol/L Anion Gap 16.7 BUN 20 H (7-18) mg/dL Creatinine 0.9 (0.6-1.3) mg/dL Est Cr Clr Drug Dosing 95.29 mL/min Estimated GFR (MDRD) > 60 BUN/Creatinine Ratio 22.22 Glucose 225 H (74-105) mg/dL POC Glucose 198 H (70-105) mg/dl Calcium 9.2 (8.4-10.2) mg/dl Phosphorus 4.0 (2.5-4.6) mg/dL Magnesium 2.1 (1.8-2.5) mg/dL Total Bilirubin 0.7 (0.2-1.0) mg/dL AST 32 (10-42) IU/L ALT 36 (10-60) IU/L Alkaline Phosphatase 63 (42-121) IU/L Total Protein 7.7 (6.7-8.2) g/dl Albumin 4.0 (3.2-5.5) g/dl Globulin 3.7 Albumin/Globulin Ratio 1.08 [place] Results Last 24 Hours: Microbiology 01/22/19 09:26 Aerobic Blood Culture - Preliminary Blood NO GROWTH AFTER 1 DAY Anaerobic Blood Culture - Preliminary NO GROWTH AFTER 1 DAY 01/22/19 08:48 Aerobic Blood Culture - Preliminary Blood NO GROWTH AFTER 1 DAY Anaerobic Blood Culture - Preliminary NO GROWTH AFTER 1 DAY Med Orders - Current: Current Medications Albuterol (Proventil Neb Soln) 2.5 mg NEB Q6HRRT PRN PRN Reason: Shortness of Breath Albuterol (Proventil Hfa) 0 gm INH Q4H PRN PRN Reason: Wheezing Albuterol/Ipratropium (Duoneb 3.0-0.5 Mg/3 Ml) 3 ml NEB Q4H [facility] Last Admin: 01/23/19 07:15 Dose: 3 ml Allopurinol (Zyloprim) 300 mg PO DAILY [facility] Last Admin: 01/23/19 09:05 Dose: 300 mg Amlodipine Besylate (Norvasc) 5 mg PO DAILY [facility] Last Admin: 01/23/19 09:05 Dose: 5 mg Budesonide (Pulmicort) 0.5 mg NEB BIDRT [facility] Last Admin: 01/23/19 07:17 Dose: 0.5 mg Heparin Sodium (Porcine) (Heparin Sodium) 5,000 units SUBCUT Q8HR [facility] Last Admin: 01/23/19 06:09 Dose: 5,000 units Piperacillin Sod/Tazobactam (Sod 3.375 gm/ Sodium Chloride) 100 mls @ 200 mls/ hr IV Q6H [facility] Last Infusion: 01/23/19 04:43 Dose: Infused Insulin Human Lispro (Humalog) 0 unit SUBCUT WITHMEALSANDBED [facility]; Protocol Last Admin: 01/23/19 09:06 Dose: 1 units Methylprednisolone Sodium Succinate (Solu-Medrol) 40 mg IV Q6H [facility] Last Admin: 01/23/19 04:03 Dose: 40 mg Beclomethasone Dipropionate [Qvar] 48mcg/Act 2 Puff) Own Med 2 puff IH BID [facility] Last Admin: 01/23/19 09:10 Dose: 2 puff Quinapril [Accupril] (40 MgOwn Med) 40 mg PO DAILY [facility] Last Admin: 01/23/19 09:08 Dose: 40 mg Umeclidinium Brm/Vilanterol Tr [Anoro Ellipta 62.5-25 Mcg Own Med 1 each IH DAILY [facility] Last Admin: 01/23/19 09:08 Dose: 1 each Metoprolol Succinate 200 Mg Tab.ErOwn Med 1 each PO BEDTIME [facility] Last Admin: 01/22/19 22:25 Dose: 1 each Simvastatin (Zocor) 20 mg PO BEDTIME [facility] Last Admin: 01/22/19 22:26 Dose: 20 mg Sodium Chloride (Saline Flush) 10 ml FLUSH ASDIRECTED PRN PRN Reason: Keep Vein Open Last Admin: 01/23/19 09:12 Dose: 10 ml Discontinued Medications Albuterol (Proventil Hfa) 0 gm INH Q4H PRN PRN Reason: Wheezing Albuterol (Proventil Neb Soln) 2.5 mg NEB ASDIRECTED PRN PRN Reason: Shortness of Breath Albuterol/Ipratropium (Duoneb 3.0-0.5 Mg/3 Ml) 3 ml NEB ONETIME ONE Stop: 01/22/19 08:58 Last Admin: 01/22/19 09:03 Dose: 3 ml Albuterol/Ipratropium (Duoneb 3.0-0.5 Mg/3 Ml) 3 ml NEB Q4H [facility] Last Admin: 01/22/19 12:57 Dose: Not Given Budesonide (Pulmicort) 0.5 mg NEB ASDIRECTED PRN PRN Reason: Shortness of Breath Methylprednisolone Sodium Succinate 40 mg/ Sodium Chloride 100.32 mls @ 100 mls /hr IV Q6H [facility] Last Admin: 01/22/19 12:58 Dose: Not Given Metoprolol Tartrate (Lopressor) 100 mg PO BEDTIME [facility] - Exam General: Alert, Oriented Lungs: Wheezing (Mainly expiratory, improved since yesterday) GI/Abdominal Exam: Normal Bowel Sounds, Soft, Non-Tender Skin: Warm, Dry, Intact Neurological: No New Focal Deficit Psy/Mental Status: Alert, Normal Affect, Normal Mood - Problem List Review Problem List Initiated/Reviewed/Updated: Yes - My Orders Last 24 Hours: My Active Orders 01/22/19 10:26 Cardiac Monitoring [RC] 08,20 Intake and Output [RC] QSHIFT Oxygen Therapy [RC] PRN Pulse Oximetry [RC] CONTINUOUS Up With Assistance [RC] ASDIRECTED VTE/DVT Education [RC] PER UNIT ROUTINE Vital Signs [RC] Q4H Resuscitation Status Routine 01/22/19 10:27 RT Aerosol Therapy [RC] ASDIRECTED 01/22/19 10:30 Piperacillin/Tazobactam [Zosyn] 3.375 gm Sodium Chloride 0.9% [Normal Saline] 100 ml IV Q6H methylPREDNISolone Sod Succ [Solu-MEDROL] 40 mg IV Q6H 01/22/19 11:00 Albuterol/Ipratropium [DuoNeb 3.0-0.5 MG/3 ML] 3 ml NEB Q4H 01/22/19 11:19 Sodium Chloride 0.9% [Saline Flush] 10 ml FLUSH ASDIRECTED PRN 01/22/19 12:05 RT Aerosol Therapy [RC] ASDIRECTED Albuterol [Proventil Neb Soln] 2.5 mg NEB Q6HRRT PRN 01/22/19 13:48 Blood Glucose Check, Bedside [RC] QIDACANDBED 01/22/19 14:00 Heparin Sodium 5,000 units SUBCUT Q8HR 01/22/19 14:58 Albuterol [Proventil HFA] 0 gm INH Q4H PRN 01/22/19 18:00 Budesonide [Pulmicort] 0.5 mg NEB BIDRT 01/22/19 21:00 Beclomethasone Dipropionate [Qvar] 2 puff IH BID Non-Formulary Medication [NF Drug] 1 each PO BEDTIME Simvastatin [Zocor] 20 mg PO BEDTIME 01/22/19 21:25 Insulin Lispro [HumaLOG] See Protocol SUBCUT WITHMEALSANDBED 01/22/19 Lunch Regular Diet [DIET] 01/23/19 09:00 Allopurinol [Zyloprim] 300 mg PO DAILY Quinapril [Accupril] 40 mg PO DAILY Umeclidinium Brm/Vilanterol Tr [Anoro Ellipta 62.5-25 MCG] 1 each IH DAILY amLODIPine [Norvasc] 5 mg PO DAILY - Plan Plan:: COPD exacerbation Continue IV Solu-Medrol IV Zosyn Continue scheduled nebulizers O2 wean down EILEEN Patient is noncompliant, discussed with patient in details risks of noncompliance with CPAP Patient has seen functioning at home Hypertension Continue home meds Type 2 diabetes Patient was diet controlled, however given that he has significant hyperglycemia with steroids, start patient on sliding scale insulin Gout Allopurinol Hyperlipidemia Simvastatin DVT prophylaxis Heparin
[2019-01-23] MEDS ORDERED: Benzonatate 100 MG Cap PO PRN (17:19)
[2019-01-23] MEDS: METOPROLOL SUCCINATE 200 MG PO SCH (22:45)
[2019-01-23] MEDS: Simvastatin 10 MG Tab PO SCH (22:46)
[2019-01-24] MEDS: Albuterol/Ipratropium 3.0-0.5 MG/3 ML Neb Soln NEB SCH ×3 (04:06→11:08)
[2019-01-24] MEDS: Piperacillin/Tazobactam 3.375 GM in Sodium Chloride 0.9% 100 ML IV SCH ×2 (04:07→10:25)
[2019-01-24] MEDS: methylPREDNISolone Sodium Succinate 40 MG/1 ML SDV IV SCH ×2 (04:07→10:26)
[2019-01-24] MEDS: Heparin Sodium 5,000 Units/ML Vial SUBCUT SCH (06:36)
[2019-01-24] MEDS: Budesonide 0.5 MG/2 ML Neb Susp NEB SCH (06:37)
[2019-01-24] MEDS: BECLOMETHASONE DIPROPIONATE IH SCH (09:08)
[2019-01-24] MEDS: Umeclidinium Brm/Vilanterol Tr [Anoro Ellipta 62.5-25 Mcg**OWN MED IH SCH (09:08)
[2019-01-24] MEDS: amLODIPine 5 MG Tab**OWN MED PO SCH (09:10)
[2019-01-24] MEDS: Insulin Lispro 100 Units/ML 3 ML Vial SUBCUT SCH ×2 (09:10→12:53)
[2019-01-24] MEDS: ALLOPURINOL 300 MG PO SCH (09:11)
[2019-01-24] MEDS: QUINAPRIL 40 MG PO SCH (09:11)
[2019-01-24] MEDS: Sodium Chloride 0.9% 10 ML Syringe FLUSH PRN (10:27)
--- NOTE | 2019-01-24 11:56 | PCM.DCSUM1 ---
Discharge Summary - Hospital Course HPI Initial Comments: Mr. Cavazos is a 58 yo M with past medical history significant for COPD, severe sleep apnea noncompliant with CPAP, morbid obesity, hypertension, gout who presented to the emergency room with COPD exacerbation. Patient said that he developed cold symptoms proximately 1 week prior to admission. Symptoms continued to get worse he got to the point where he is unable to walk for more than few steps without feeling significantly short of breath. Patient presented to the emergency room for further care. In the ED, patient was given nebulizer with some improvement in symptoms. Of note, patient was seen by his primary care provider and was started on prednisone and doxycycline without improvement. On interview, patient said that he does not have any sick contact. He reports noncompliance with CPAP. He quit smoking approximately 20 years ago. his breathing improved significantly with treatment and IV steroids. he was transitioned to oral meds and was later discharged home in stable condition. - Discharge Data Discharge Date: 01/24/19 Discharge Disposition: Home, Self-Care 01 Condition: Good - Referral to Home Health Primary Care Physician: PCP Unknown - Discharge Plan *PRESCRIPTION DRUG MONITORING PROGRAM REVIEWED*: Not Applicable *COPY OF PRESCRIPTION DRUG MONITORING REPORT IN PATIENT ROSE: Not Applicable Prescriptions/Med Rec: Albuterol/Ipratropium [DuoNeb 3.0-0.5 MG/3 ML] 3 ml INH Q6H PRN #30 neb PRN Reason: Shortness Of Breath Amoxicillin/Clavulanate K [Augmentin 875-125 MG] 1 tab PO BID #6 tablet predniSONE 40 mg PO WITHBREAKFAST 3 Days #6 tab Home Medications: Home Meds Multivitamin with Minerals [Multiple Vitamin] 1 tab PO DAILY 05/17/13 [History] Quinapril [Accupril] 40 mg PO DAILY 05/17/13 [History] Albuterol [Proventil Neb Soln] 2.5 mg NEB ASDIRECTED PRN 12/17/14 [History] Budesonide [Pulmicort] 0.5 mg NEB ASDIRECTED PRN 12/17/14 [History] Simvastatin 20 mg PO BEDTIME 12/17/14 [History] Albuterol [Proventil HFA] 2 puff INH Q4HR PRN 05/27/16 [History] Beclomethasone Dipropionate [Qvar] 2 puff IH BID 05/27/16 [History] Umeclidinium Brm/Vilanterol Tr [Anoro Ellipta 62.5-25 MCG] 1 each IH DAILY 05/27 [History] Allopurinol [Zyloprim] 300 mg PO DAILY 01/16/17 [History] Metoprolol Succinate 200 mg PO DAILY 01/22/19 [History] amLODIPine [Norvasc] 5 mg PO DAILY 01/22/19 [History] metFORMIN [Glucophage] 500 mg PO DAILY 01/22/19 [History] Albuterol/Ipratropium [DuoNeb 3.0-0.5 MG/3 ML] 3 ml INH Q6H PRN #30 neb [Rx] Amoxicillin/Clavulanate K [Augmentin 875-125 MG] 1 tab PO BID #6 tablet [Rx] predniSONE 40 mg PO WITHBREAKFAST 3 Days #6 tab 01/24/19 [Rx] Patient Handouts: Chronic Obstructive Pulmonary Disease Exacerbation, Easy-to- Read Referrals: PCP,Unknown [Primary Care Provider] - - Discharge Summary/Plan Comment DC Time >30 min.: Yes - Patient Data Vitals - Most Recent: Last Vital Signs Temp 36.1 C 01/24/19 07:55 Pulse 81 01/24/19 11:10 Resp 22 H 01/24/19 07:55 BP 150/80 H 01/24/19 09:10 Pulse Ox 91 L 01/24/19 11:10 Weight - Most Recent: 150.411 kg I&O - Last 24 hours: Intake & Output 01/23/19 01/24/19 01/24/19 22:59 06:59 14:59 Intake Total 550 789 593 Output Total 1300 Balance 550 -511 593 Lab Results - Last 24 hrs: Laboratory Results - last 24 hr 01/23/19 01/23/19 01/23/19 Range/Units 12:00 17:09 21:23 POC Glucose 249 H 248 H 237 H (70-105) mg/dl 01/24/19 01/24/19 Range/Units 07:46 11:44 POC Glucose 199 H 193 H (70-105) mg/dl [facility] Results - Last 24 hrs: Microbiology 01/22/19 09:26 Aerobic Blood Culture - Preliminary Blood NO GROWTH AFTER 2 DAYS Anaerobic Blood Culture - Preliminary NO GROWTH AFTER 2 DAYS 01/22/19 08:48 Aerobic Blood Culture - Preliminary Blood NO GROWTH AFTER 2 DAYS Anaerobic Blood Culture - Preliminary NO GROWTH AFTER 2 DAYS Med Orders - Current: Current Medications Albuterol (Proventil Neb Soln) 2.5 mg NEB Q6HRRT PRN PRN Reason: Shortness of Breath Albuterol (Proventil Hfa) 0 gm INH Q4H PRN PRN Reason: Wheezing Albuterol/Ipratropium (Duoneb 3.0-0.5 Mg/3 Ml) 3 ml NEB Q4HRRT [facility] Last Admin: 01/24/19 11:08 Dose: 3 ml Allopurinol (Zyloprim) 300 mg PO DAILY [facility] Last Admin: 01/24/19 09:11 Dose: 300 mg Amlodipine Besylate (Norvasc) 5 mg PO DAILY [facility] Last Admin: 01/24/19 09:10 Dose: 5 mg Benzonatate (Tessalon Perles) 100 mg PO QID PRN PRN Reason: Cough Last Admin: 01/23/19 17:44 Dose: 100 mg Budesonide (Pulmicort) 0.5 mg NEB BIDRT [facility] Last Admin: 01/24/19 06:37 Dose: 0.5 mg Heparin Sodium (Porcine) (Heparin Sodium) 5,000 units SUBCUT Q8HR [facility] Last Admin: 01/24/19 06:36 Dose: 5,000 units Piperacillin Sod/Tazobactam (Sod 3.375 gm/ Sodium Chloride) 100 mls @ 200 mls/ hr IV Q6H [facility] Last Infusion: 01/24/19 11:00 Dose: Infused Insulin Human Lispro (Humalog) 0 unit SUBCUT WITHMEALSANDBED [facility]; Protocol Last Admin: 01/24/19 09:10 Dose: 1 units Methylprednisolone Sodium Succinate (Solu-Medrol) 40 mg IV Q6H [facility] Last Admin: 01/24/19 10:26 Dose: 40 mg Beclomethasone Dipropionate [Qvar] 48mcg/Act 2 Puff) Own Med 2 puff IH BID [facility] Last Admin: 01/24/19 09:08 Dose: 2 puff Quinapril [Accupril] (40 MgOwn Med) 40 mg PO DAILY [facility] Last Admin: 01/24/19 09:11 Dose: 40 mg Umeclidinium Brm/Vilanterol Tr [Anoro Ellipta 62.5-25 Mcg Own Med 1 each IH DAILY [facility] Last Admin: 01/24/19 09:08 Dose: 1 each Metoprolol Succinate 200 Mg Tab.ErOwn Med 1 each PO BEDTIME [facility] Last Admin: 01/23/19 22:45 Dose: 1 each Simvastatin (Zocor) 20 mg PO BEDTIME [facility] Last Admin: 01/23/19 22:46 Dose: 20 mg Sodium Chloride (Saline Flush) 10 ml FLUSH ASDIRECTED PRN PRN Reason: Keep Vein Open Last Admin: 01/24/19 10:27 Dose: 10 ml Discontinued Medications Albuterol (Proventil Hfa) 0 gm INH Q4H PRN PRN Reason: Wheezing Albuterol (Proventil Neb Soln) 2.5 mg NEB ASDIRECTED PRN PRN Reason: Shortness of Breath Albuterol/Ipratropium (Duoneb 3.0-0.5 Mg/3 Ml) 3 ml NEB ONETIME ONE Stop: 01/22/19 08:58 Last Admin: 01/22/19 09:03 Dose: 3 ml Albuterol/Ipratropium (Duoneb 3.0-0.5 Mg/3 Ml) 3 ml NEB Q4H [facility] Last Admin: 01/22/19 12:57 Dose: Not Given Albuterol/Ipratropium (Duoneb 3.0-0.5 Mg/3 Ml) 3 ml NEB Q4H [facility] Last Admin: 01/23/19 11:44 Dose: 3 ml Budesonide (Pulmicort) 0.5 mg NEB ASDIRECTED PRN PRN Reason: Shortness of Breath Methylprednisolone Sodium Succinate 40 mg/ Sodium Chloride 100.32 mls @ 100 mls /hr IV Q6H [facility] Last Admin: 01/22/19 12:58 Dose: Not Given Metoprolol Tartrate (Lopressor) 100 mg PO BEDTIME [facility] - Exam General: Reports: Alert, Oriented Lungs: Reports: Clear to Auscultation, Normal Respiratory Effort Cardiovascular: Reports: Regular Rate, Regular Rhythm GI/Abdominal Exam: Normal Bowel Sounds, Soft, Non-Tender, No Distention Extremities: Normal Inspection, No Pedal Edema Skin: Reports: Warm, Dry, Intact Neurological: Reports: No New Focal Deficit Psy/Mental Status: Reports: Alert, Normal Affect, Normal Mood
[2019-01-24 12:02] VITALS: BP 169/80; PULSE 89
== END 2019-01-24 13:04 | disposition home or self-care (01) | DRG 192 ==
LOC: DL.ED 08:06 → DL.MS 09:40 → OBSVTOIN 01-23 13:13
PROVIDERS: ADMIT Internal Medicine; ATTEND Internal Medicine
DX: J44.1 Chronic obstructive pulmonary disease with (acute) exacerbation (principal); G47.33 Obstructive sleep apnea (adult) (pediatric); I10 Essential (primary) hypertension; M10.9 Gout, unspecified; E78.5 Hyperlipidemia, unspecified; E11.65 Type 2 diabetes mellitus with hyperglycemia; E78.00 Pure hypercholesterolemia, unspecified; Z88.8 Allergy status to other drugs, medicaments and biological substances; Z91.14 Patient's other noncompliance with medication regimen; Z79.899 Other long term (current) drug therapy; Z87.442 Personal history of urinary calculi; Z87.891 Personal history of nicotine dependence
CPT/HCPCS: 36415; 71046; 80053; 82962; 83605; 83735; 83880; 84100; 84484; 85025; 87040; 93005; 94640; 94760; 96365; 96366; 96372; 96375; 96376; 99285-25; A9270-GY; G0378; J1644; J1815; J2543; J2920; J7050; J7620-GY

== ENCOUNTER 2019-11-21 14:07 | Inpatient (IN) | payer BC ==
[2019-11-21 15:04] LABS: ANION GAP 16.3 mEq/L (7-13); CHLORIDE,CL 100 mmol/L (98-107); SODIUM,NA 138 mmol/L (136-145)
--- NOTE | 2019-11-21 15:31 | CR ---
EXAMINATION: Chest 1V Frontal SEX: Male AGE: 59 years CLINICAL HISTORY: 59-year-old male with clinical respiratory failure. Comparison exam 22 January 2019. Interpretation: Less than optimal inspiratory effort obese male accentuating the cardiac silhouette (AP versus PA comparison film technique). No alveolar edema or dependent pleural effusion. Chronic shaggy bronchitic pattern and pleural parenchymal fibrosis. No new focal lobar infiltrate but patchy atelectasis left lung base. No new lung mass or hilar lymphadenopathy. Midline tracheobronchial airway unremarkable. No pneumothorax or pneumomediastinum. CONCLUSION: No acute new cardiopulmonary abnormality. Unchanged except for film technique and poor inspiratory effort since 22 January 2019
[2019-11-21] MEDS ORDERED: Acetaminophen 500 MG Tab PO ONE (15:34)
[2019-11-21] MEDS ORDERED: Lactated Ringers 1,000 ML IV SCH (15:45)
[2019-11-21] MEDS ORDERED: Dexamethasone 4 MG Tab PO ONE (15:47)
[2019-11-21] MEDS ORDERED: Ondansetron 4 MG/2 ML SDV IVPUSH PRN (16:31)
[2019-11-21] MEDS ORDERED: Acetaminophen 325 MG Tab PO PRN (16:31)
[2019-11-21] MEDS ORDERED: Ondansetron 4 MG Tab.DIS PO PRN (16:31)
[2019-11-21] MEDS ORDERED: Albuterol/Ipratropium 3.0-0.5 MG/3 ML Neb Soln INH PRN (16:35)
[2019-11-21] MEDS ORDERED: Budesonide 0.5 MG/2 ML Neb Susp NEB PRN (16:35)
[2019-11-21] MEDS ORDERED: Albuterol 6.7 GM Inhaler INH PRN (16:35)
[2019-11-21] MEDS ORDERED: Dexamethasone 4 MG/ML SDV IVPUSH SCH (16:45)
--- NOTE | 2019-11-21 17:14 | PCM.HP ---
H&P History of Present Illness - General Date of Service: 11/21/19 Admit Problem/Dx: Admission Diagnosis/Problem Admission Diagnosis/Problem COVID-19 associated pneumonia Source of Information: Patient History Limitations: Reports: No Limitations - History of Present Illness Initial Comments - Free Text/Narative: Patient is a 59-year-old male with a medical history of type 2 diabetes mellitus, hypertension, COPD/asthma, gout, recent diagnosis of COVID-19 who presented to the ED with complaints of shortness of breath, fever, diarrhea and generalized weakness. Patient says he does not know how he got infected. A week ago he tested positive for COVID-19. Since then he has been under quarantine. Has been taking dexamethasone tabs. However, he has had very poor appetite, generalized weakness, watery diarrhea, and occasional fevers. Today he became very weak and short of breath. He presented to the ER for evaluation. Patient was found to be hypoxic at 88% and requiring 2 L of oxygen by nasal cannula, febrile at 101.6, tachycardic at 101. He denied chest pain or palpitation. Labs showed a d-dimer of 1030, ferritin of 427, anion gap of 16.3, LDH of 347 and CRP of 11.9. Chest x-ray showed chronic bronchitic pattern and pleural parenchymal fibrosis. - Related Data Allergies/Adverse Reactions: Allergies Allergy/AdvReac Type Severity Reaction Status Date / Time bupropion HCl Allergy Severe Anaphylactic Verified 11/21/19 14:42 [From Wellbutrin] Shock Home Medications: Home Meds Multivitamin with Minerals [Multiple Vitamin] 1 tab PO DAILY 05/17/13 [History] Quinapril [Accupril] 40 mg PO DAILY 05/17/13 [History] Albuterol [Proventil Neb Soln] 2.5 mg NEB Q4H PRN 12/17/14 [History] Budesonide [Pulmicort] 0.5 mg NEB BID 12/17/14 [History] Simvastatin 20 mg PO BEDTIME 12/17/14 [History] Albuterol [Proventil HFA] 2 puff INH Q4HR PRN 05/27/16 [History] Beclomethasone Dipropionate [Qvar] 2 puff IH BID 05/27/16 [History] Umeclidinium Brm/Vilanterol Tr [Anoro Ellipta 62.5-25 MCG] 1 each IH DAILY 05/27/16 [History] Allopurinol [Zyloprim] 300 mg PO DAILY 01/16/17 [History] Metoprolol Succinate 200 mg PO DAILY 01/22/19 [History] amLODIPine [Norvasc] 5 mg PO DAILY 01/22/19 [History] metFORMIN [Glucophage] 500 mg PO DAILY 01/22/19 [History] Albuterol/Ipratropium [DuoNeb 3.0-0.5 MG/3 ML] 3 ml INH Q6H PRN #30 neb 01/24/19 [Rx] Past Medical History HEENT History: Reports: None Other HEENT History: Pt states slightly HUSLIA to both ears Cardiovascular History: Reports: High Cholesterol, Hypertension Respiratory History: Reports: Asthma, COPD Gastrointestinal History: Reports: None Other Genitourinary History: URETEROLITHIASIS; NEPHROLITHIASIS Musculoskeletal History: Reports: Gout Other Musculoskeletal History: LUMBOSACRAL SPONDYLOSIS WITHOUT MYELOPATHY; L1-2 THROUGH L5-S1 DEGENERATIVE DISC DISEASE; MODERATE CENTRAL L1-2 , MODERATE CENTRAL AND BILATERAL FORAMINAL L4-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; 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; Neurological History: Reports: None Psychiatric History: Reports: None Endocrine/Metabolic History: Reports: None Hematologic History: Reports: None Immunologic History: Reports: None Oncologic (Cancer) History: Reports: None Other Dermatologic History: swelling and redness from hornet bite; ONYCHOMYCOSIS OF TOENAIL - Infectious Disease History Infectious Disease History: Reports: Chicken Pox, Measles - Past Surgical History Other GI Surgeries/Procedures: BARIATIC PROCEDURE-LAP BAND; HEMORRHOIDECTOMY; Other Musculoskeletal Surgeries/Procedures:: CARPAL TUNNEL RELEASE, CORTISONE SHOT IN RIGHT SHOULDER Social & Family History - Family History Family Medical History: Noncontributory - Tobacco Use Smoking Status *Q: Former Smoker Years of Tobacco use: 27 Packs/Tins Daily: 1 Used Tobacco, but Quit: Yes Month/Year Tobacco Last Used: 1999 - Caffeine Use Caffeine Use: Reports: Coffee - Recreational Drug Use Recreational Drug Use: No H&P Review of Systems - Review of Systems: Review Of Systems: See Below General: Reports: Fever, Chills, Malaise, Decreased Appetite HEENT: Reports: No Symptoms Pulmonary: Reports: Shortness of Breath, Cough Cardiovascular: Reports: No Symptoms Gastrointestinal: Reports: Diarrhea, Decreased Appetite Genitourinary: Reports: No Symptoms Musculoskeletal: Reports: No Symptoms Skin: Reports: No Symptoms Psychiatric: Reports: No Symptoms Neurological: Reports: No Symptoms Hematologic/Lymphatic: Reports: No Symptoms Exam - Exam Exam: See Below - Vital Signs Vital Signs: Last Vital Signs Temp 101.6 F H 11/21/19 16:52 Pulse 95 11/21/19 16:52 Resp 20 11/21/19 16:52 BP 132/58 L 11/21/19 16:52 Pulse Ox 92 L 11/21/19 16:52 - Exam Quality Assessment: Supplemental Oxygen General: Alert, Oriented, 4 HEENT: PERRLA, Hearing Intact, Mucosa Moist & Mccoll, Nares Patent, Normal Nasal Septum, Posterior Pharynx Clear, Conjunctiva Clear, EOMI, EACs Clear, TMs Clear Neck: Supple, Trachea Midline, 2 Lungs: Clear to Auscultation, Normal Respiratory Effort Cardiovascular: Regular Rate, Regular Rhythm GI/Abdominal Exam: Normal Bowel Sounds, Soft, Non-Tender, No Organomegaly, No Distention, No Abnormal Bruit, No Mass, Pelvis Stable Back Exam: Normal Inspection, Full Range of Motion, NT Extremities: Normal Inspection, Normal Range of Motion, Non-Tender, No Pedal Edema, Normal Capillary Refill Skin: Warm, Dry, Intact Neurological: Cranial Nerves Intact, Reflexes Equal Bilateral Neuro Extensive - Mental Status: Alert, Oriented x3, Normal Mood/Affect, Normal Cognition Neuro Extensive - Motor, Sensory, Reflexes: CN II-XII Intact, Normal Gait, Normal Reflexes Psychiatric: Alert, Normal Affect, Normal Mood - Patient Data Lab Results Last 24 hrs: Laboratory Results - last 24 hr 11/21/19 11/21/19 11/21/19 Range/Units 14:18 14:18 14:18 WBC 7.5 (5.0-10.0) 10^3/uL RBC 5.27 (4.6-6.2) 10^6/uL Hgb 15.3 (14.0-18.0) g/dL Hct 45.1 (40.0-54.0) % MCV 85.6 (80-100) fL MCH 29.0 (27.0-34.0) pg MCHC 33.9 (33.0-35.0) g/dL Plt Count 218 (150-450) 10^3/uL Neut % (Auto) 68.8 (42.2-75.2) % Lymph % (Auto) 22.3 (20.5-50.1) % Pope % (Auto) 8.8 H (2-8) % Eos % (Auto) 0.0 L (1.0-3.0) % Baso % (Auto) 0.1 (0.0-1.0) % PT 9.7 (9.0-12.0) SEC INR 1.0 (0.9-1.2) APTT 25.0 (22.0-34.0) SEC D-Dimer, Quantitative (0-400) ng/mL Sodium (136-145) mmol/L Potassium (3.5-5.1) mmol/L Chloride (98-107) mmol/L Carbon Dioxide (21-32) mmol/L Anion Gap (7-13) mEq/L BUN (7-18) mg/dL Creatinine (0.70-1.30) mg/dL Est Cr Clr Drug Dosing Estimated GFR (MDRD) BUN/Creatinine Ratio (No establ ref range) Glucose (74-99) mg/dL Lactic Acid (0.4-2.0) mmol/L Calcium (8.5-10.1) mg/dL Ferritin 427 H (26-388) mg/mL Total Bilirubin (0.2-1.0) mg/dL AST (15-37) U/L ALT (16-63) U/L Alkaline Phosphatase (46-116) U/L Lactate Dehydrogenase (85-227) U/L Creatine Kinase (39-308) U/L C-Reactive Protein (0.0-0.9) mg/dL B-Natriuretic Peptide (0-100) pg/ml Total Protein (6.4-8.2) g/dL Albumin (3.4-5.0) g/dL Globulin Albumin/Globulin Ratio 11/21/19 11/21/19 11/21/19 Range/Units 14:18 14:18 14:18 WBC (5.0-10.0) 10^3/uL RBC (4.6-6.2) 10^6/uL Hgb (14.0-18.0) g/dL Hct (40.0-54.0) % MCV (80-100) fL MCH (27.0-34.0) pg MCHC (33.0-35.0) g/dL Plt Count (150-450) 10^3/uL Neut % (Auto) (42.2-75.2) % Lymph % (Auto) (20.5-50.1) % Pope % (Auto) (2-8) % Eos % (Auto) (1.0-3.0) % Baso % (Auto) (0.0-1.0) % PT (9.0-12.0) SEC INR (0.9-1.2) APTT (22.0-34.0) SEC D-Dimer, Quantitative 1030 H (0-400) ng/mL Sodium 138 (136-145) mmol/L Potassium 4.3 (3.5-5.1) mmol/L Chloride 100 (98-107) mmol/L Carbon Dioxide 26 (21-32) mmol/L Anion Gap 16.3 H (7-13) mEq/L BUN 15 (7-18) mg/dL Creatinine 1.01 (0.70-1.30) mg/dL Est Cr Clr Drug Dosing TNP Estimated GFR (MDRD) > 60 BUN/Creatinine Ratio 14.9 (No establ ref range) Glucose 128 H (74-99) mg/dL Lactic Acid 1.5 (0.4-2.0) mmol/L Calcium 8.4 L (8.5-10.1) mg/dL Ferritin (26-388) mg/mL Total Bilirubin 0.7 (0.2-1.0) mg/dL AST 27 (15-37) U/L ALT 25 (16-63) U/L Alkaline Phosphatase 59 (46-116) U/L Lactate Dehydrogenase 347 H (85-227) U/L Creatine Kinase 42 (39-308) U/L C-Reactive Protein 11.9 H (0.0-0.9) mg/dL B-Natriuretic Peptide (0-100) pg/ml Total Protein 8.2 (6.4-8.2) g/dL Albumin 3.4 (3.4-5.0) g/dL Globulin 4.8 Albumin/Globulin Ratio 0.7 /29/20 Range/Units 14:18 WBC (5.0-10.0) 10^3/uL RBC (4.6-6.2) 10^6/uL Hgb (14.0-18.0) g/dL Hct (40.0-54.0) % MCV (80-100) fL MCH (27.0-34.0) pg MCHC (33.0-35.0) g/dL Plt Count (150-450) 10^3/uL Neut % (Auto) (42.2-75.2) % Lymph % (Auto) (20.5-50.1) % Pope % (Auto) (2-8) % Eos % (Auto) (1.0-3.0) % Baso % (Auto) (0.0-1.0) % PT (9.0-12.0) SEC INR (0.9-1.2) APTT (22.0-34.0) SEC D-Dimer, Quantitative (0-400) ng/mL Sodium (136-145) mmol/L Potassium (3.5-5.1) mmol/L Chloride (98-107) mmol/L Carbon Dioxide (21-32) mmol/L Anion Gap (7-13) mEq/L BUN (7-18) mg/dL Creatinine (0.70-1.30) mg/dL Est Cr Clr Drug Dosing Estimated GFR (MDRD) BUN/Creatinine Ratio (No establ ref range) Glucose (74-99) mg/dL Lactic Acid (0.4-2.0) mmol/L Calcium (8.5-10.1) mg/dL Ferritin (26-388) mg/mL Total Bilirubin (0.2-1.0) mg/dL AST (15-37) U/L ALT (16-63) U/L Alkaline Phosphatase (46-116) U/L Lactate Dehydrogenase (85-227) U/L Creatine Kinase (39-308) U/L C-Reactive Protein (0.0-0.9) mg/dL B-Natriuretic Peptide 11 (0-100) pg/ml Total Protein (6.4-8.2) g/dL Albumin (3.4-5.0) g/dL Globulin Albumin/Globulin Ratio Result Diagrams: 11/21/19 14:18 11/21/19 14:18 Problem List Initiated/Reviewed/Updated: Yes Orders Last 24hrs: Active Orders 24 hr Category Date Time Status Admission Diagnosis [ADT] Routine ADT 11/21/19 16:05 Ordered Admission Status [Patient Status] [ADT] Routine ADT 11/21/19 16:05 Active Antiembolic Devices [RC] PER UNIT ROUTINE Care 11/21/19 16:33 Active Cardiac Monitoring [RC] . DIRECTED Care 11/21/19 14:13 Active EKG Documentation Completion [RC] STAT Care 11/21/19 14:15 Active Intake and Output [RC] QSHIFT Care 11/21/19 16:32 Active Oxygen Therapy [RC] PRN Care 11/21/19 16:32 Active RT Aerosol Therapy [RC] ASDIRECTED Care 11/21/19 16:37 Active RT Post Treatment Assessment [RC] Click to Edit Care 11/21/19 16:37 Active RT Pre-Treatment Assessment [RC] Click to Edit Care 11/21/19 16:37 Active Up ad Shawna [RC] ASDIRECTED Care 11/21/19 16:31 Active VTE/DVT Education [RC] PER UNIT ROUTINE Care 11/21/19 16:32 Active Verify Patient Consent Obtain [RC] ASDIRECTED Care 11/21/19 17:09 Ordered Vital Signs [RC] Q4H Care 11/21/19 16:32 Active Consistent Carbohydrate Diet [DIET] Diet 11/21/19 Dinner Active BASIC METABOLIC PANEL,BMP [CHEM] AM Lab 11/23/19 05:11 Ordered BASIC METABOLIC PANEL,BMP [CHEM] AM Lab 11/24/19 05:11 Ordered BASIC METABOLIC PANEL,BMP [CHEM] AM Lab 11/25/19 05:11 Ordered BASIC METABOLIC PANEL,BMP [CHEM] AM Lab 11/26/19 05:11 Ordered CBC WITH AUTO DIFF [HEME] AM Lab 11/22/19 05:11 Ordered CBC WITH AUTO DIFF [HEME] AM Lab 11/23/19 05:11 Ordered CBC WITH AUTO DIFF [HEME] AM Lab 11/24/19 05:11 Ordered CBC WITH AUTO DIFF [HEME] AM Lab 11/25/19 05:11 Ordered CULTURE BLOOD [BC] Stat Lab 11/21/19 16:49 Ordered CULTURE BLOOD [BC] Stat Lab 11/21/19 16:49 Ordered CULTURE SPUTUM + SMEAR [RM] Routine Lab 11/21/19 14:14 Ordered D-DIMER QUANTITATIVE [COAG] AM Lab 11/22/19 05:11 Ordered D-DIMER QUANTITATIVE [COAG] AM Lab 11/23/19 05:11 Ordered D-DIMER QUANTITATIVE [COAG] AM Lab 11/24/19 05:11 Ordered D-DIMER QUANTITATIVE [COAG] AM Lab 11/25/19 05:11 Ordered FERRITIN [CHEM] AM Lab 11/22/19 05:11 Ordered FERRITIN [CHEM] AM Lab 11/23/19 05:11 Ordered FERRITIN [CHEM] AM Lab 11/24/19 05:11 Ordered FERRITIN [CHEM] AM Lab 11/25/19 05:11 Ordered FRESH FROZEN PLASMA [BBK] Routine Lab 11/21/19 17:09 Ordered HEPATIC FUNCTION PANEL,HFP [CHEM] AM Lab 11/22/19 05:11 Ordered HEPATIC FUNCTION PANEL,HFP [CHEM] AM Lab 11/23/19 05:11 Ordered HEPATIC FUNCTION PANEL,HFP [CHEM] AM Lab 11/24/19 05:11 Ordered HEPATIC FUNCTION PANEL,HFP [CHEM] AM Lab 11/25/19 05:11 Ordered LACTATE DEHYDROGENASE,LDH [CHEM] AM Lab 11/22/19 05:11 Ordered LACTATE DEHYDROGENASE,LDH [CHEM] AM Lab 11/23/19 05:11 Ordered LACTATE DEHYDROGENASE,LDH [CHEM] AM Lab 11/24/19 05:11 Ordered LACTATE DEHYDROGENASE,LDH [CHEM] AM Lab 11/25/19 05:11 Ordered PROCALCITONIN [REF] AM Lab 11/22/19 05:11 Ordered PROCALCITONIN [REF] AM Lab 11/23/19 05:11 Ordered PROCALCITONIN [REF] AM Lab 11/24/19 05:11 Ordered PROCALCITONIN [REF] AM Lab 11/25/19 05:11 Ordered PROCALCITONIN [REF] Stat Lab 11/21/19 14:18 Received STREP PNEUMONIAE ANTIGEN [MREF] Routine Lab 11/21/19 15:14 Received Acetaminophen [TylenoL] Med 11/21/19 16:31 Active 650 mg PO Q4H PRN Albuterol [Proventil HFA] Med 11/21/19 16:35 Active 0 gm INH Q4H PRN Albuterol/Ipratropium [DuoNeb 3.0-0.5 MG/3 ML] Med 11/21/19 16:35 Active 3 ml INH Q6H PRN Beclomethasone Dipropionate [Qvar] Med 11/21/19 21:00 Pending 2 puff IH BID Enoxaparin [Lovenox] Med 11/21/19 21:00 Active 40 mg SUBCUT BID Insulin Lispro [HumaLOG] Med 11/21/19 18:00 Ordered See Protocol SUBCUT WITHMEALSANDBED Lactated Ringers [Ringers, Lactated] 1,000 ml Med 11/21/19 15:45 Active IV ASDIRECTED Metoprolol Succinate [Toprol XL] Med 11/22/19 09:00 Active 200 mg PO DAILY Multivitamins,Therapeutic [Thera] Med 11/22/19 09:00 Active 1 each PO DAILY Ondansetron [Zofran ODT] Med 11/21/19 16:31 Active 4 mg PO Q6H PRN Ondansetron [Zofran] Med 11/21/19 16:31 Active 4 mg IVPUSH Q6H PRN Quinapril [Accupril] Med 11/22/19 09:00 Pending 40 mg PO DAILY Remdesivir (Eua) [Remdesivir (EUA)] 100 mg Med 11/22/19 17:00 Active Sodium Chloride 0.9% [Normal Saline] 230 ml IV Q24H Remdesivir (Eua) [Remdesivir (EUA)] 200 mg Med 11/21/19 17:00 Active Sodium Chloride 0.9% [Normal Saline] 210 ml IV ONETIME Simvastatin [Zocor] Med 11/21/19 21:00 Active 20 mg PO BEDTIME Umeclidinium Brm/Vilanterol Tr [Anoro Ellipta 62.5-25 Med 11/22/19 09:00 Pending MCG] 1 each IH DAILY allopurinoL [Zyloprim] Med 11/22/19 09:00 Active 300 mg PO DAILY amLODIPine [Norvasc] Med 11/22/19 09:00 Active 5 mg PO DAILY dexAMETHasone [Dexamethasone] Med 11/22/19 09:00 Active 6 mg IVPUSH DAILY Antiembolic Hose [OM.PC] Per Unit Routine Oth 11/21/19 16:32 Ordered Blood Culture x2 Reflex Set [OM.PC] Stat Oth 11/21/19 16:49 Ordered Isolation [COMM] Stat Oth 11/21/19 16:38 Active Transfuse Fresh Frozen Plasma [COMM] Routine Oth 11/21/19 17:09 Ordered Resuscitation Status Routine Resus Stat 11/21/19 16:31 Ordered Medication Orders Acetaminophen (Tylenol) 650 mg PO Q4H PRN PRN Reason: Pain (Mild 1-3)/fever Albuterol (Proventil Hfa) 0 gm INH Q4H PRN PRN Reason: Wheezing Albuterol/Ipratropium (Duoneb 3.0-0.5 Mg/3 Ml) 3 ml INH Q6H PRN PRN Reason: Shortness of Breath Allopurinol (Zyloprim) 300 mg PO DAILY [facility] Amlodipine Besylate (Norvasc) 5 mg PO DAILY [facility] Dexamethasone (Dexamethasone) 6 mg IVPUSH DAILY [facility] Stop: 11/30/19 09:01 Enoxaparin Sodium (Lovenox) 40 mg SUBCUT BID [facility] Lactated Ringer's (Ringers, Lactated) 1,000 mls @ 125 mls/hr IV ASDIRECTED [facility] Last Admin: 11/21/19 16:37 Dose: 125 mls/hr Documented by: [id number] Remdesivir 200 mg/ Sodium (Chloride) 210 mls @ 210 mls/hr IV ONETIME ONE Stop: 11/21/19 17:59 Remdesivir 100 mg/ Sodium (Chloride) 230 mls @ 230 mls/hr IV Q24H [facility] Metoprolol Succinate (Toprol Xl) 200 mg PO DAILY [facility] Multivitamins (Thera) 1 each PO DAILY [facility] Non-Formulary Medication (Beclomethasone Dipropionate [Qvar]) 2 puff IH BID [facility] Non-Formulary Medication (Quinapril [Accupril]) 40 mg PO DAILY [facility] Non-Formulary Medication (Umeclidinium Brm/Vilanterol Tr [Anoro Ellipta 62.5-25 Mcg]) 1 each IH DAILY [facility] Ondansetron HCl (Zofran) 4 mg IVPUSH Q6H PRN PRN Reason: Nausea/Vomiting Ondansetron HCl (Zofran Odt) 4 mg PO Q6H PRN PRN Reason: nausea, able to take PO Simvastatin (Zocor) 20 mg PO BEDTIME [facility] Assessment/Plan Comment:: COVID associated pneumonia Acute hypoxic respiratory failure Sepsis Gastroenteritis Start Decadron IV 6 mg daily Start Remdesevir 200 mg now. then is no 100 mg daily. I spoke with patient and provided information about Remdesevir treatment as being under emergency use authorization (EUA) and not fully FDA approved or reviewed. I discussed potential side effects including liver abnormalities. Also discussed other potential treatment options that are currently not FDA approved to treat COVID- 19. Patient gives permission for Remdesevir. Anticoagulation with Lovenox 40 mg subcut twice daily 2 units of convalescent plasma ordered Start ceftriaxone and azithromycin Oxygen supplementation as needed Obtain daily COVID labs COPD/asthma Resume home inhalers Hypertension Resume home antihypertensives Type 2 diabetes mellitus Hold home metformin Sliding scale insulin with hypoglycemia protocol 4 times daily fingerstick checks Gout Resume home allopurinol Hyperlipidemia Resume home statin therapy
[2019-11-21] MEDS: Insulin Lispro 100 Units/ML 3 ML Vial SUBCUT SCH ×2 (17:19→21:00)
[2019-11-21] MEDS ORDERED: cefTRIAXone 1 GM in Sodium Chloride 0.9% 50 ML IV SCH ×5 (17:30→18:30)
[2019-11-21] MEDS ORDERED: Azithromycin 500 MG in Sodium Chloride 0.9% 250 ML IV SCH ×5 (17:30→20:00)
[2019-11-21] MEDS ORDERED: Sodium Chloride 0.9% 1,000 ML IV SCH (18:15)
[2019-11-21] MEDS ORDERED: cefTRIAXone 1 GM in Sodium Chloride 0.9% 100 ML IV SCH (18:45)
[2019-11-21] MEDS ORDERED: Azithromycin 500 MG Vial ONE (19:18)
[2019-11-21] MEDS: Simvastatin 10 MG Tab PO SCH (20:56)
[2019-11-21] MEDS: Enoxaparin 40 MG/0.4 ML Syringe SUBCUT SCH (20:56)
--- NOTE | 2019-11-21 22:39 | EDM.PDOC ---
ED HPI GENERAL MEDICAL PROBLEM - General Chief Complaint: Respiratory Problem Stated Complaint: COVID POSITIVE Time Seen by Provider: 11/21/19 14:10 Source of Information: Reports: Patient History Limitations: Reports: No Limitations - History of Present Illness INITIAL COMMENTS - FREE TEXT/NARRATIVE: Patient comes emergency department today from home with concerns of worsening shortness of breath. This patient was diagnosed with COVID approximately 4 days ago. He has a history of COPD. He has been at home over the past couple of days. He contacted his primary care provider today as he checked his oxygen saturation at home and they were 88%. He was instructed to come to the emergency department. Upon arrival the patient complains of gradually increasing shortness of breath. He does not have much of a cough. He has no production from his cough. He denies any fever but he is constantly shaking and chilled. He has had no weakness dizziness lightheadedness. No chest pain. He has had some nausea no vomiting appetite is been poor. He has had normal amount of urination. He has had quite a bit of diarrhea over the past couple of days. He has no pain in his calves. He has had no syncope. - Related Data Allergies Allergy/AdvReac Type Severity Reaction Status Date / Time bupropion HCl Allergy Severe Anaphylactic Verified 11/21/19 14:42 [From Wellbutrin] Shock Home Meds: Home Meds Multivitamin with Minerals [Multiple Vitamin] 1 tab PO DAILY 05/17/13 [History] Quinapril [Accupril] 40 mg PO DAILY 05/17/13 [History] Albuterol [Proventil Neb Soln] 2.5 mg NEB Q4H PRN 12/17/14 [History] Budesonide [Pulmicort] 0.5 mg NEB BID 12/17/14 [History] Simvastatin 20 mg PO BEDTIME 12/17/14 [History] Albuterol [Proventil HFA] 2 puff INH Q4HR PRN 05/27/16 [History] Beclomethasone Dipropionate [Qvar] 2 puff IH BID 05/27/16 [History] Umeclidinium Brm/Vilanterol Tr [Anoro Ellipta 62.5-25 MCG] 1 each IH DAILY 05/27/16 [History] Allopurinol [Zyloprim] 300 mg PO DAILY 01/16/17 [History] Metoprolol Succinate 200 mg PO DAILY 01/22/19 [History] amLODIPine [Norvasc] 5 mg PO DAILY 01/22/19 [History] metFORMIN [Glucophage] 500 mg PO DAILY 01/22/19 [History] Albuterol/Ipratropium [DuoNeb 3.0-0.5 MG/3 ML] 3 ml INH Q6H PRN #30 neb 01/24/19 [Rx] Past Medical History HEENT History: Reports: None Other HEENT History: Pt states slightly AMBLER to both ears Cardiovascular History: Reports: High Cholesterol, Hypertension Respiratory History: Reports: Asthma, COPD Gastrointestinal History: Reports: None Other Genitourinary History: URETEROLITHIASIS; NEPHROLITHIASIS Musculoskeletal History: Reports: Gout Other Musculoskeletal History: LUMBOSACRAL SPONDYLOSIS WITHOUT MYELOPATHY; L1-2 THROUGH L5-S1 DEGENERATIVE DISC DISEASE; MODERATE CENTRAL L1-2 , MODERATE CENTRAL AND BILATERAL FORAMINAL L4-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; 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; Neurological History: Reports: None Psychiatric History: Reports: None Endocrine/Metabolic History: Reports: None Hematologic History: Reports: None Immunologic History: Reports: None Oncologic (Cancer) History: Reports: None Other Dermatologic History: swelling and redness from hornet bite; ONYCHOMYCOSIS OF TOENAIL - Infectious Disease History Infectious Disease History: Reports: Chicken Pox, Measles - Past Surgical History Other GI Surgeries/Procedures: BARIATIC PROCEDURE-LAP BAND; HEMORRHOIDECTOMY; Other Musculoskeletal Surgeries/Procedures:: CARPAL TUNNEL RELEASE, CORTISONE SHOT IN RIGHT SHOULDER Social & Family History - Family History Family Medical History: Noncontributory - Tobacco Use Smoking Status *Q: Former Smoker Years of Tobacco use: 27 Packs/Tins Daily: 1 Used Tobacco, but Quit: Yes Month/Year Tobacco Last Used: 1999 Second Hand Smoke Exposure: Yes - Caffeine Use Caffeine Use: Reports: Coffee - Recreational Drug Use Recreational Drug Use: No ED ROS GENERAL - Review of Systems Review Of Systems: Comprehensive ROS is negative, except as noted in HPI. ED EXAM, GENERAL - Physical Exam Exam: See Below Free Text/Narrative:: Patient is resting comfortably on the cot. He appears in no acute respiratory distress. Although he does have a fine tremulousness such as rigors. Exam Limited By: No Limitations General Appearance: Alert, WD/WN, No Apparent Distress Eye Exam: Bilateral Eye: EOMI Ears: Normal External Exam Nose: Normal Inspection Throat/Mouth: Normal Inspection Head: Atraumatic, Normocephalic Neck: Normal Inspection, Supple, Non-Tender, Full Range of Motion Respiratory/Chest: No Respiratory Distress, No Accessory Muscle Use, Chest Non- Tender, Rhonchi (He has some holo sounding rhonchi bilaterally with some mild inspiratory and mild expiratory wheezing.). No: Stridor, Accessory Muscle Use, Retractions, Splinting Cardiovascular: Normal Peripheral Pulses, Regular Rate, Rhythm GI/Abdominal: Normal Bowel Sounds, Soft, Non-Tender, No Organomegaly, No Distention, No Abnormal Bruit, No Mass, Pelvis Stable Back Exam: Normal Inspection, Full Range of Motion, NT Extremities: Normal Inspection, Normal Range of Motion, Non-Tender, No Pedal Edema, Normal Capillary Refill Neurological: Alert, Oriented, Normal Cognition, No Motor/Sensory Deficits Psychiatric: Normal Affect, Normal Mood Skin Exam: Dry, Intact, Normal Color, Cool EKG INTERPRETATION EKG Date: 11/21/19 Time: 14:29 Rhythm: NSR Rate (Beats/Min): 88 [place]: Normal P-Wave: Present QRS: Normal ST-T: Normal QT: Normal Course - Vital Signs Last Recorded V/S: Last Vital Signs Temp 97.7 F 11/22/19 08:00 Pulse 74 11/22/19 08:00 Resp 18 11/22/19 08:00 BP 137/80 11/22/19 08:00 Pulse Ox 92 L 11/22/19 08:00 - Orders/Labs/Meds Orders: Active Orders 24 hr Category Date Time Status Cardiac Monitoring [RC] Care 11/21/19 14:13 Active CULTURE SPUTUM + SMEAR [RM] Routine Lab 11/21/19 14:14 Ordered PROCALCITONIN [REF] Stat Lab 11/21/19 14:18 Received STREP PNEUMONIAE ANTIGEN [MREF] Routine Lab 11/21/19 15:14 Received Medication Orders Acetaminophen (Tylenol) 650 mg PO Q4H PRN PRN Reason: Pain (Mild 1-3)/fever Albuterol (Proventil Hfa) 0 gm INH Q4H PRN PRN Reason: Wheezing Albuterol/Ipratropium (Duoneb 3.0-0.5 Mg/3 Ml) 3 ml INH Q6H PRN PRN Reason: Shortness of Breath Allopurinol (Zyloprim) 300 mg PO DAILY [facility] Amlodipine Besylate (Norvasc) 5 mg PO DAILY [facility] Dexamethasone (Dexamethasone) 6 mg IVPUSH DAILY [facility] Stop: 11/30/19 09:01 Enoxaparin Sodium (Lovenox) 40 mg SUBCUT BID [facility] Last Admin: 11/21/19 20:56 Dose: 40 mg Documented by: RACHAEL Remdesivir 100 mg/ Sodium (Chloride) 230 mls @ 230 mls/hr IV Q24H [facility] Ceftriaxone Sodium 1 gm/ (Sodium Chloride) 50 mls @ 100 mls/hr IV Q24H [facility] Last Admin: 11/21/19 18:42 Dose: Not Given Documented by: MAURICIO Azithromycin 500 mg/ Sodium (Chloride) 250 mls @ 250 mls/hr IV Q24H [facility] Last Admin: 11/21/19 20:55 Dose: 250 mls/hr Documented by: RACHAEL Ceftriaxone Sodium 1 gm/ (Sodium Chloride) 100 mls @ 200 mls/hr IV Q24H [facility] Last Admin: 11/21/19 18:39 Dose: 200 mls/hr Documented by: MAURICIO Insulin Human Lispro (Humalog) 0 unit SUBCUT WITHMEALSANDBED [facility]; Protocol Last Admin: 11/21/19 21:00 Dose: Not Given Documented by: Admin: 11/21/19 17:19 Dose: Not Given Documented by: MAURICIO Metoprolol Succinate (Toprol Xl) 200 mg PO DAILY [facility] Multivitamins (Thera) 1 each PO DAILY [facility] Beclomethasone Dipropionate [Qvar] 80 Mcg Pt Own Med* * 2 puff INH BID [facility] Quinapril [Accupril] 40 Mg Pt Own Med* * 0 mg PO DAILY [facility] Umeclidinium Brm/Vilanterol [Anoro Ellipta 62.5-25 Mcg] Pt Own Med 0 each INH DAILY [facility] Ondansetron HCl (Zofran) 4 mg IVPUSH Q6H PRN PRN Reason: Nausea/Vomiting Ondansetron HCl (Zofran Odt) 4 mg PO Q6H PRN PRN Reason: nausea, able to take PO Simvastatin (Zocor) 20 mg PO BEDTIME [facility] Last Admin: 11/21/19 20:56 Dose: 20 mg Documented by: RACHAEL Sodium Chloride (Saline Flush) 10 ml FLUSH ASDIRECTED PRN PRN Reason: Keep Vein Open Labs: Laboratory Tests 11/21/19 11/21/19 11/21/19 Range/Units 14:18 14:18 14:18 WBC 7.5 (5.0-10.0) 10^3/uL RBC 5.27 (4.6-6.2) 10^6/uL Hgb 15.3 (14.0-18.0) g/dL Hct 45.1 (40.0-54.0) % MCV 85.6 (80-100) fL MCH 29.0 (27.0-34.0) pg MCHC 33.9 (33.0-35.0) g/dL Plt Count 218 (150-450) 10^3/uL Neut % (Auto) 68.8 (42.2-75.2) % Lymph % (Auto) 22.3 (20.5-50.1) % [place] % (Auto) 8.8 H (2-8) % Eos % (Auto) 0.0 L (1.0-3.0) % Baso % (Auto) 0.1 (0.0-1.0) % PT 9.7 (9.0-12.0) SEC INR 1.0 (0.9-1.2) APTT 25.0 (22.0-34.0) SEC D-Dimer, Quantitative (0-400) ng/mL Sodium (136-145) mmol/L Potassium (3.5-5.1) mmol/L Chloride (98-107) mmol/L Carbon Dioxide (21-32) mmol/L Anion Gap (7-13) mEq/L BUN (7-18) mg/dL Creatinine (0.70-1.30) mg/dL Est Cr Clr Drug Dosing Estimated GFR (MDRD) BUN/Creatinine Ratio (No establ ref range) Glucose (74-99) mg/dL Lactic Acid (0.4-2.0) mmol/L Calcium (8.5-10.1) mg/dL Ferritin 427 H (26-388) mg/mL Total Bilirubin (0.2-1.0) mg/dL AST (15-37) U/L ALT (16-63) U/L Alkaline Phosphatase (46-116) U/L Lactate Dehydrogenase (85-227) U/L Creatine Kinase (39-308) U/L C-Reactive Protein (0.0-0.9) mg/dL B-Natriuretic Peptide (0-100) pg/ml Total Protein (6.4-8.2) g/dL Albumin (3.4-5.0) g/dL Globulin Albumin/Globulin Ratio 11/21/19 11/21/19 11/21/19 Range/Units 14:18 14:18 14:18 WBC (5.0-10.0) 10^3/uL RBC (4.6-6.2) 10^6/uL Hgb (14.0-18.0) g/dL Hct (40.0-54.0) % MCV (80-100) fL MCH (27.0-34.0) pg MCHC (33.0-35.0) g/dL Plt Count (150-450) 10^3/uL Neut % (Auto) (42.2-75.2) % Lymph % (Auto) (20.5-50.1) % [place]icks[place] % (Auto) (2-8) % Eos % (Auto) (1.0-3.0) % Baso % (Auto) (0.0-1.0) % PT (9.0-12.0) SEC INR (0.9-1.2) APTT (22.0-34.0) SEC D-Dimer, Quantitative 1030 H (0-400) ng/mL Sodium 138 (136-145) mmol/L Potassium 4.3 (3.5-5.1) mmol/L Chloride 100 (98-107) mmol/L Carbon Dioxide 26 (21-32) mmol/L Anion Gap 16.3 H (7-13) mEq/L BUN 15 (7-18) mg/dL Creatinine 1.01 (0.70-1.30) mg/dL Est Cr Clr Drug Dosing TNP Estimated GFR (MDRD) > 60 BUN/Creatinine Ratio 14.9 (No establ ref range) Glucose 128 H (74-99) mg/dL Lactic Acid 1.5 (0.4-2.0) mmol/L Calcium 8.4 L (8.5-10.1) mg/dL Ferritin (26-388) mg/mL Total Bilirubin 0.7 (0.2-1.0) mg/dL AST 27 (15-37) U/L ALT 25 (16-63) U/L Alkaline Phosphatase 59 (46-116) U/L Lactate Dehydrogenase 347 H (85-227) U/L Creatine Kinase 42 (39-308) U/L C-Reactive Protein 11.9 H (0.0-0.9) mg/dL B-Natriuretic Peptide (0-100) pg/ml Total Protein 8.2 (6.4-8.2) g/dL Albumin 3.4 (3.4-5.0) g/dL Globulin 4.8 Albumin/Globulin Ratio 0.7 //20 Range/Units 14:18 WBC (5.0-10.0) 10^3/uL RBC (4.6-6.2) 10^6/uL Hgb (14.0-18.0) g/dL Hct (40.0-54.0) % MCV (80-100) fL MCH (27.0-34.0) pg MCHC (33.0-35.0) g/dL Plt Count (150-450) 10^3/uL Neut % (Auto) (42.2-75.2) % Lymph % (Auto) (20.5-50.1) % [place] % (Auto) (2-8) % Eos % (Auto) (1.0-3.0) % Baso % (Auto) (0.0-1.0) % PT (9.0-12.0) SEC INR (0.9-1.2) APTT (22.0-34.0) SEC D-Dimer, Quantitative (0-400) ng/mL Sodium (136-145) mmol/L Potassium (3.5-5.1) mmol/L Chloride (98-107) mmol/L Carbon Dioxide (21-32) mmol/L Anion Gap (7-13) mEq/L BUN (7-18) mg/dL Creatinine (0.70-1.30) mg/dL Est Cr Clr Drug Dosing Estimated GFR (MDRD) BUN/Creatinine Ratio (No establ ref range) Glucose (74-99) mg/dL Lactic Acid (0.4-2.0) mmol/L Calcium (8.5-10.1) mg/dL Ferritin (26-388) mg/mL Total Bilirubin (0.2-1.0) mg/dL AST (15-37) U/L ALT (16-63) U/L Alkaline Phosphatase (46-116) U/L Lactate Dehydrogenase (85-227) U/L Creatine Kinase (39-308) U/L C-Reactive Protein (0.0-0.9) mg/dL B-Natriuretic Peptide 11 (0-100) pg/ml Total Protein (6.4-8.2) g/dL Albumin (3.4-5.0) g/dL Globulin Albumin/Globulin Ratio Meds: Medications Generic Name Dose Route Start Last Admin Trade Name Freq PRN Reason Stop Dose Admin Acetaminophen 650 mg 11/21/19 16:31 Tylenol PO Q4H PRN Pain (Mild 1-3)/fever Albuterol 0 gm 11/21/19 16:35 Proventil Hfa INH Q4H PRN Wheezing Albuterol/Ipratropium 3 ml 11/21/19 16:35 Duoneb 3.0-0.5 Mg/3 Ml INH Q6H PRN Shortness of Breath Allopurinol 300 mg 11/22/19 09:00 Zyloprim PO DAILY [facility] Amlodipine Besylate 5 mg 11/22/19 09:00 Norvasc PO DAILY [facility] Dexamethasone 6 mg 11/22/19 09:00 Dexamethasone IVPUSH 11/30/19 09:01 DAILY [facility] Enoxaparin Sodium 40 mg 11/21/19 21:00 11/21/19 20:56 Lovenox SUBCUT 40 mg BID [facility] Administration Remdesivir 100 mg/ Sodium 230 mls @ 230 mls/hr 11/22/19 17:00 Chloride IV Q24H [facility] Ceftriaxone Sodium 1 gm/ 50 mls @ 100 mls/hr 11/21/19 18:30 11/21/19 18:42 Sodium Chloride IV Not Given Q24H [facility] Azithromycin 500 mg/ Sodium 250 mls @ 250 mls/hr 11/21/19 20:00 11/21/19 20:55 Chloride IV 250 mls/hr Q24H [facility] Administration Ceftriaxone Sodium 1 gm/ 100 mls @ 200 mls/hr 11/21/19 18:45 11/21/19 18:39 Sodium Chloride IV 200 mls/hr Q24H [facility] Administration Insulin Human Lispro 0 unit 11/21/19 18:00 11/21/19 21:00 Humalog SUBCUT Not Given WITHMEALSANDBED [facility] Protocol Metoprolol Succinate 200 mg 11/22/19 09:00 Toprol Xl PO DAILY [facility] Multivitamins 1 each 11/22/19 09:00 Thera PO DAILY [facility] Beclomethasone 2 puff 11/22/19 09:00 Dipropionate [Qvar] INH 80 Mcg Pt Own Med* BID [facility] * Quinapril [Accupril] 0 mg 11/22/19 09:00 40 Mg Pt Own Med* PO * DAILY [facility] Umeclidinium Brm/ 0 each 11/22/19 09:00 Vilanterol [Anoro INH Ellipta 62.5-25 Mcg] DAILY [facility] Pt Own Med Ondansetron HCl 4 mg 11/21/19 16:31 Zofran IVPUSH Q6H PRN Nausea/Vomiting Ondansetron HCl 4 mg 11/21/19 16:31 Zofran Odt PO Q6H PRN nausea, able to take PO Simvastatin 20 mg 11/21/19 21:00 11/21/19 20:56 Zocor PO 20 mg BEDTIME [facility] Administration Sodium Chloride 10 ml 11/21/19 17:52 Saline Flush FLUSH ASDIRECTED PRN Keep Vein Open Discontinued Medications Generic Name Dose Route Start Last Admin Trade Name Freq PRN Reason Stop Dose Admin Acetaminophen 1,000 mg 11/21/19 15:34 11/21/19 16:34 Tylenol Extra Strength PO 11/21/19 15:35 1,000 mg ONETIME ONE Administration Azithromycin Confirm 11/21/19 19:18 11/21/19 21:24 Zithromax Administered 11/21/19 19:19 Not Given Dose 500 mg .ROUTE .STK-MED ONE Budesonide 0.5 mg 11/21/19 16:35 Pulmicort NEB ASDIRECTED PRN Shortness of Breath Dexamethasone 6 mg 11/21/19 15:47 11/21/19 16:34 Dexamethasone PO 11/21/19 15:48 6 mg ONETIME ONE Administration Dexamethasone 6 mg 11/21/19 16:45 11/21/19 18:33 Dexamethasone IVPUSH 11/30/19 09:01 Not Given DAILY [facility] Lactated Ringer's 1,000 mls @ 125 mls/hr 11/21/19 15:45 11/21/19 16:37 Ringers, Lactated IV 125 mls/hr ASDIRECTED [facility] Administration Remdesivir 200 mg/ Sodium 210 mls @ 210 mls/hr 11/21/19 17:00 11/21/19 17:14 Chloride IV 11/21/19 17:59 210 mls/hr ONETIME ONE Administration Ceftriaxone Sodium 1 gm/ 50 mls @ 100 mls/hr 11/21/19 17:30 11/21/19 18:33 Sodium Chloride IV Not Given Q24H [facility] Azithromycin 500 mg/ Sodium 250 mls @ 250 mls/hr 11/21/19 17:30 11/21/19 18:33 Chloride IV Not Given Q24H [facility] Sodium Chloride 1,000 mls @ 125 mls/hr 11/21/19 18:15 11/21/19 18:34 Normal Saline IV 11/22/19 02:14 125 mls/hr ASDIRECTED [facility] Administration Ceftriaxone Sodium 1 gm/ 50 mls @ 100 mls/hr 11/21/19 18:30 Sodium Chloride IV Q24H [facility] Azithromycin 500 mg/ Sodium 250 mls @ 250 mls/hr 11/21/19 20:00 Chloride IV Q24H [facility] - Radiology Interpretation Free Text/Narrative:: Chest x-ray per radiology shows no acute new cardiopulmonary abnormality from the chest x-ray from just a couple of days ago. No focal lobar infiltrate but patchy atelectasis left lung base. - Re-Assessments/Exams Free Text/Narrative Re-Assessment/Exam: Isolation precautions were taking upon patient's arrival. Tylenol for his shaking rigors. Blood cultures x2 pending. Dexamethasone 6mg PO. He does have a mildly elevated lactate dehydrogenase, ferritin, d-dimer. He was started on normal saline 125 mils an hour. He is requiring 2 to 3 L of oxygen to keep his oxygen saturation above 92%. I spoke with Dr. Diallo about admission for this patient who is requiring oxygen at this time with is Covid history. HPI ER COURSE findings and concerns were relayed to him. He accepted the patient in transfer at this [facility]. Departure - Departure Time of Disposition: 16:00 Disposition: Admitted As Inpatient 66 Clinical Impression: COVID-19, Hypoxia - Discharge Information Sepsis Event Note (ED) - Evaluation Sepsis Screening Result: No Definite Risk - My Orders Last 24 Hours: My Active Orders 11/21/19 14:13 Cardiac Monitoring [RC] ,11/21/19 14:14 CULTURE SPUTUM + SMEAR [RM] Routine 11/21/19 14:18 PROCALCITONIN [REF] Stat 11/21/19 15:14 STREP PNEUMONIAE ANTIGEN [MREF] Routine - Assessment/Plan Last 24 Hours: My Active Orders 11/21/19 14:13 Cardiac Monitoring [RC] ,11/21/19 14:14 CULTURE SPUTUM + SMEAR [RM] Routine 11/21/19 14:18 PROCALCITONIN [REF] Stat 11/21/19 15:14 STREP PNEUMONIAE ANTIGEN [MREF] Routine
[2019-11-22] MEDS: Enoxaparin 40 MG/0.4 ML Syringe SUBCUT SCH ×2 (09:14→21:00)
[2019-11-22] MEDS: amLODIPine 5 MG Tab PO SCH (09:18)
[2019-11-22] MEDS: Allopurinol 300 MG Tab PO SCH (09:18)
[2019-11-22] MEDS: Multivitamins,Therapeutic Tab PO SCH (09:18)
[2019-11-22] MEDS: Metoprolol Succinate 50 MG Tab.ER PO SCH (09:18)
[2019-11-22] MEDS: Dexamethasone 4 MG/ML SDV IVPUSH SCH (09:19)
[2019-11-22] MEDS: Insulin Lispro 100 Units/ML 3 ML Vial SUBCUT SCH ×4 (09:21→21:51)
[2019-11-22] MEDS: BECLOMETHASONE DIPROPIONATE 80 MCG INH SCH ×2 (09:22→21:03)
[2019-11-22] MEDS: QUINAPRIL 40 MG PO SCH (09:23)
[2019-11-22] MEDS: UMECLIDINIUM BRM INH SCH (09:24)
[2019-11-22] MEDS: VILANTEROL INH SCH (09:24)
--- NOTE | 2019-11-22 09:55 | PCM.PN ---
- General Info Date of Service: 11/22/19 Admission Dx/Problem (Free Text): Admission Diagnosis/Problem Admission Diagnosis/Problem COVID-19 associated pneumonia Subjective Update: Patient seen and examined today. He reports feeling better. Cough is better today shortness of breath is improved his oxygen requirement has also improved. He denies fever, chills. No abdominal pain nausea or vomiting. Functional Status: Reports: Pain Controlled - Review of Systems General: Reports: No Symptoms HEENT: Reports: No Symptoms Pulmonary: Reports: No Symptoms Cardiovascular: Reports: No Symptoms Gastrointestinal: Reports: No Symptoms Genitourinary: Reports: No Symptoms Musculoskeletal: Reports: No Symptoms Skin: Reports: No Symptoms Neurological: Reports: No Symptoms Psychiatric: Reports: No Symptoms - Patient Data Vitals - Most Recent: Last Vital Signs Temp 97.7 F 11/22/19 08:00 Pulse 74 11/22/19 09:18 Resp 18 11/22/19 08:00 BP 137/80 11/22/19 09:18 Pulse Ox 92 L 11/22/19 08:00 Weight - Most Recent: 294 lb 3.2 oz Lab Results Last 24 Hours: Laboratory Results - last 24 hr 11/21/19 11/21/19 11/21/19 Range/Units 14:18 14:18 14:18 WBC 7.5 (5.0-10.0) 10^3/uL RBC 5.27 (4.6-6.2) 10^6/uL Hgb 15.3 (14.0-18.0) g/dL Hct 45.1 (40.0-54.0) % MCV 85.6 (80-100) fL MCH 29.0 (27.0-34.0) pg MCHC 33.9 (33.0-35.0) g/dL Plt Count 218 (150-450) 10^3/uL Neut % (Auto) 68.8 (42.2-75.2) % Lymph % (Auto) 22.3 (20.5-50.1) % [place] % (Auto) 8.8 H (2-8) % Eos % (Auto) 0.0 L (1.0-3.0) % Baso % (Auto) 0.1 (0.0-1.0) % Add Manual Diff Neutrophils % (Manual) (42-75) % Band Neutrophils % % Lymphocytes % (Manual) (20-50) % Monocytes % (Manual) (2-8) % Metamyelocytes % Giant Platelets PT 9.7 (9.0-12.0) SEC INR 1.0 (0.9-1.2) APTT 25.0 (22.0-34.0) SEC D-Dimer, Quantitative (0-400) ng/mL Sodium (136-145) mmol/L Potassium (3.5-5.1) mmol/L Chloride (98-107) mmol/L Carbon Dioxide (21-32) mmol/L Anion Gap (7-13) mEq/L BUN (7-18) mg/dL Creatinine (0.70-1.30) mg/dL Est Cr Clr Drug Dosing Estimated GFR (MDRD) BUN/Creatinine Ratio (No establ ref range) Glucose (74-99) mg/dL POC Glucose (70-105) mg/dl Lactic Acid (0.4-2.0) mmol/L Calcium (8.5-10.1) mg/dL Ferritin 427 H (26-388) mg/mL Total Bilirubin (0.2-1.0) mg/dL Direct Bilirubin (0.0-0.2) mg/dL Indirect Bilirubin AST (15-37) U/L ALT (16-63) U/L Alkaline Phosphatase (46-116) U/L Lactate Dehydrogenase (85-227) U/L Creatine Kinase (39-308) U/L C-Reactive Protein (0.0-0.9) mg/dL B-Natriuretic Peptide (0-100) pg/ml Total Protein (6.4-8.2) g/dL Albumin (3.4-5.0) g/dL Globulin Albumin/Globulin Ratio Blood Type 11/21/19 11/21/19 11/21/19 Range/Units 14:18 14:18 14:18 WBC (5.0-10.0) 10^3/uL RBC (4.6-6.2) 10^6/uL Hgb (14.0-18.0) g/dL Hct (40.0-54.0) % MCV (80-100) fL MCH (27.0-34.0) pg MCHC (33.0-35.0) g/dL Plt Count (150-450) 10^3/uL Neut % (Auto) (42.2-75.2) % Lymph % (Auto) (20.5-50.1) % [place] % (Auto) (2-8) % Eos % (Auto) (1.0-3.0) % Baso % (Auto) (0.0-1.0) % Add Manual Diff Neutrophils % (Manual) (42-75) % Band Neutrophils % % Lymphocytes % (Manual) (20-50) % Monocytes % (Manual) (2-8) % Metamyelocytes % Giant Platelets PT (9.0-12.0) SEC INR (0.9-1.2) APTT (22.0-34.0) SEC D-Dimer, Quantitative 1030 H (0-400) ng/mL Sodium 138 (136-145) mmol/L Potassium 4.3 (3.5-5.1) mmol/L Chloride 100 (98-107) mmol/L Carbon Dioxide 26 (21-32) mmol/L Anion Gap 16.3 H (7-13) mEq/L BUN 15 (7-18) mg/dL Creatinine 1.01 (0.70-1.30) mg/dL Est Cr Clr Drug Dosing TNP Estimated GFR (MDRD) > 60 BUN/Creatinine Ratio 14.9 (No establ ref range) Glucose 128 H (74-99) mg/dL POC Glucose (70-105) mg/dl Lactic Acid 1.5 (0.4-2.0) mmol/L Calcium 8.4 L (8.5-10.1) mg/dL Ferritin (26-388) mg/mL Total Bilirubin 0.7 (0.2-1.0) mg/dL Direct Bilirubin (0.0-0.2) mg/dL Indirect Bilirubin AST 27 (15-37) U/L ALT 25 (16-63) U/L Alkaline Phosphatase 59 (46-116) U/L Lactate Dehydrogenase 347 H (85-227) U/L Creatine Kinase 42 (39-308) U/L C-Reactive Protein 11.9 H (0.0-0.9) mg/dL B-Natriuretic Peptide (0-100) pg/ml Total Protein 8.2 (6.4-8.2) g/dL Albumin 3.4 (3.4-5.0) g/dL Globulin 4.8 Albumin/Globulin Ratio 0.7 Blood Type 11/21/19 11/21/19 11/21/19 Range/Units 14:18 17:45 20:47 WBC (5.0-10.0) 10^3/uL RBC (4.6-6.2) 10^6/uL Hgb (14.0-18.0) g/dL Hct (40.0-54.0) % MCV (80-100) fL MCH (27.0-34.0) pg MCHC (33.0-35.0) g/dL Plt Count (150-450) 10^3/uL Neut % (Auto) (42.2-75.2) % Lymph % (Auto) (20.5-50.1) % [place] % (Auto) (2-8) % Eos % (Auto) (1.0-3.0) % Baso % (Auto) (0.0-1.0) % Add Manual Diff Neutrophils % (Manual) (42-75) % Band Neutrophils % % Lymphocytes % (Manual) (20-50) % Monocytes % (Manual) (2-8) % Metamyelocytes % Giant Platelets PT (9.0-12.0) SEC INR (0.9-1.2) APTT (22.0-34.0) SEC D-Dimer, Quantitative (0-400) ng/mL Sodium (136-145) mmol/L Potassium (3.5-5.1) mmol/L Chloride (98-107) mmol/L Carbon Dioxide (21-32) mmol/L Anion Gap (7-13) mEq/L BUN (7-18) mg/dL Creatinine (0.70-1.30) mg/dL Est Cr Clr Drug Dosing Estimated GFR (MDRD) BUN/Creatinine Ratio (No establ ref range) Glucose (74-99) mg/dL POC Glucose 143 H (70-105) mg/dl Lactic Acid (0.4-2.0) mmol/L Calcium (8.5-10.1) mg/dL Ferritin (26-388) mg/mL Total Bilirubin (0.2-1.0) mg/dL Direct Bilirubin (0.0-0.2) mg/dL Indirect Bilirubin AST (15-37) U/L ALT (16-63) U/L Alkaline Phosphatase (46-116) U/L Lactate Dehydrogenase (85-227) U/L Creatine Kinase (39-308) U/L C-Reactive Protein (0.0-0.9) mg/dL B-Natriuretic Peptide 11 (0-100) pg/ml Total Protein (6.4-8.2) g/dL Albumin (3.4-5.0) g/dL Globulin Albumin/Globulin Ratio Blood Type A POSITIVE 11/22/19 11/22/19 11/22/19 Range/Units 06:37 06:37 06:37 WBC 6.8 (5.0-10.0) 10^3/uL RBC 4.78 (4.6-6.2) 10^6/uL Hgb 13.6 L D (14.0-18.0) g/dL Hct 40.9 (40.0-54.0) % MCV 85.6 (80-100) fL MCH 28.5 (27.0-34.0) pg MCHC 33.3 (33.0-35.0) g/dL Plt Count 222 (150-450) 10^3/uL Neut % (Auto) 76.6 H (42.2-75.2) % Lymph % (Auto) 15.0 L (20.5-50.1) % [place] % (Auto) 8.3 H (2-8) % Eos % (Auto) 0.0 L (1.0-3.0) % Baso % (Auto) 0.1 (0.0-1.0) % Add Manual Diff Yes Neutrophils % (Manual) 77 H (42-75) % Band Neutrophils % 5 % Lymphocytes % (Manual) 13 L (20-50) % Monocytes % (Manual) 4 (2-8) % Metamyelocytes % 1 Giant Platelets Few PT (9.0-12.0) SEC INR (0.9-1.2) APTT (22.0-34.0) SEC D-Dimer, Quantitative 1010 H (0-400) ng/mL Sodium (136-145) mmol/L Potassium (3.5-5.1) mmol/L Chloride (98-107) mmol/L Carbon Dioxide (21-32) mmol/L Anion Gap (7-13) mEq/L BUN (7-18) mg/dL Creatinine (0.70-1.30) mg/dL Est Cr Clr Drug Dosing Estimated GFR (MDRD) BUN/Creatinine Ratio (No establ ref range) Glucose (74-99) mg/dL POC Glucose (70-105) mg/dl Lactic Acid (0.4-2.0) mmol/L Calcium (8.5-10.1) mg/dL Ferritin (26-388) mg/mL Total Bilirubin 0.5 (0.2-1.0) mg/dL Direct Bilirubin 0.2 (0.0-0.2) mg/dL Indirect Bilirubin 0.3 AST 19 (15-37) U/L ALT 25 (16-63) U/L Alkaline Phosphatase 53 (46-116) U/L Lactate Dehydrogenase 237 H (85-227) U/L Creatine Kinase (39-308) U/L C-Reactive Protein (0.0-0.9) mg/dL B-Natriuretic Peptide (0-100) pg/ml Total Protein 7.5 (6.4-8.2) g/dL Albumin 3.0 L (3.4-5.0) g/dL Globulin 4.5 Albumin/Globulin Ratio 0.67 Blood Type 11/22/19 11/22/19 Range/Units 06:37 09:17 WBC (5.0-10.0) 10^3/uL RBC (4.6-6.2) 10^6/uL Hgb (14.0-18.0) g/dL Hct (40.0-54.0) % MCV (80-100) fL MCH (27.0-34.0) pg MCHC (33.0-35.0) g/dL Plt Count (150-450) 10^3/uL Neut % (Auto) (42.2-75.2) % Lymph % (Auto) (20.5-50.1) % [place] % (Auto) (2-8) % Eos % (Auto) (1.0-3.0) % Baso % (Auto) (0.0-1.0) % Add Manual Diff Neutrophils % (Manual) (42-75) % Band Neutrophils % % Lymphocytes % (Manual) (20-50) % Monocytes % (Manual) (2-8) % Metamyelocytes % Giant Platelets PT (9.0-12.0) SEC INR (0.9-1.2) APTT (22.0-34.0) SEC D-Dimer, Quantitative (0-400) ng/mL Sodium (136-145) mmol/L Potassium (3.5-5.1) mmol/L Chloride (98-107) mmol/L Carbon Dioxide (21-32) mmol/L Anion Gap (7-13) mEq/L BUN (7-18) mg/dL Creatinine (0.70-1.30) mg/dL Est Cr Clr Drug Dosing Estimated GFR (MDRD) BUN/Creatinine Ratio (No establ ref range) Glucose (74-99) mg/dL POC Glucose 122 H (70-105) mg/dl Lactic Acid (0.4-2.0) mmol/L Calcium (8.5-10.1) mg/dL Ferritin 418 H (26-388) mg/mL Total Bilirubin (0.2-1.0) mg/dL Direct Bilirubin (0.0-0.2) mg/dL Indirect Bilirubin AST (15-37) U/L ALT (16-63) U/L Alkaline Phosphatase (46-116) U/L Lactate Dehydrogenase (85-227) U/L Creatine Kinase (39-308) U/L C-Reactive Protein (0.0-0.9) mg/dL B-Natriuretic Peptide (0-100) pg/ml Total Protein (6.4-8.2) g/dL Albumin (3.4-5.0) g/dL Globulin Albumin/Globulin Ratio Blood Type Med Orders - Current: Current Medications Acetaminophen (Tylenol) 650 mg PO Q4H PRN PRN Reason: Pain (Mild 1-3)/fever Albuterol (Proventil Hfa) 0 gm INH Q4H PRN PRN Reason: Wheezing Albuterol/Ipratropium (Duoneb 3.0-0.5 Mg/3 Ml) 3 ml INH Q6H PRN PRN Reason: Shortness of Breath Allopurinol (Zyloprim) 300 mg PO DAILY [facility] Last Admin: 11/22/19 09:18 Dose: 300 mg Documented by: Amlodipine Besylate (Norvasc) 5 mg PO DAILY [facility] Last Admin: 11/22/19 09:18 Dose: 5 mg Documented by: Dexamethasone (Dexamethasone) 6 mg IVPUSH DAILY [facility] Stop: 11/30/19 09:01 Last Admin: 11/22/19 09:19 Dose: 6 mg Documented by: Enoxaparin Sodium (Lovenox) 40 mg SUBCUT BID [facility] Last Admin: 11/22/19 09:14 Dose: 40 mg Documented by: Remdesivir 100 mg/ Sodium (Chloride) 230 mls @ 230 mls/hr IV Q24H [facility] Ceftriaxone Sodium 1 gm/ (Sodium Chloride) 50 mls @ 100 mls/hr IV Q24H [facility] Last Admin: 11/21/19 18:42 Dose: Not Given Documented by: Azithromycin 500 mg/ Sodium (Chloride) 250 mls @ 250 mls/hr IV Q24H [facility] Last Admin: 11/21/19 20:55 Dose: 250 mls/hr Documented by: Ceftriaxone Sodium 1 gm/ (Sodium Chloride) 100 mls @ 200 mls/hr IV Q24H [facility] Last Admin: 11/21/19 18:39 Dose: 200 mls/hr Documented by: Insulin Human Lispro (Humalog) 0 unit SUBCUT WITHMEALSANDBED [facility]; Protocol Last Admin: 11/22/19 09:21 Dose: Not Given Documented by: Metoprolol Succinate (Toprol Xl) 200 mg PO DAILY [facility] Last Admin: 11/22/19 09:18 Dose: 200 mg Documented by: Multivitamins (Thera) 1 each PO DAILY [facility] Last Admin: 11/22/19 09:18 Dose: 1 each Documented by: Beclomethasone Dipropionate [Qvar] 80 Mcg Pt Own Med* * 2 puff INH BID [facility] Last Admin: 11/22/19 09:22 Dose: 2 puff Documented by: Quinapril [Accupril] 40 Mg Pt Own Med* * 0 mg PO DAILY [facility] Last Admin: 11/22/19 09:23 Dose: 40 mg Documented by: Umeclidinium Brm/Vilanterol [Anoro Ellipta 62.5-25 Mcg] Pt Own Med 0 each INH DAILY [facility] Last Admin: 11/22/19 09:24 Dose: 1 each Documented by: Ondansetron HCl (Zofran) 4 mg IVPUSH Q6H PRN PRN Reason: Nausea/Vomiting Ondansetron HCl (Zofran Odt) 4 mg PO Q6H PRN PRN Reason: nausea, able to take PO Simvastatin (Zocor) 20 mg PO BEDTIME [facility] Last Admin: 11/21/19 20:56 Dose: 20 mg Documented by: Sodium Chloride (Saline Flush) 10 ml FLUSH ASDIRECTED PRN PRN Reason: Keep Vein Open Discontinued Medications Acetaminophen (Tylenol Extra Strength) 1,000 mg PO ONETIME ONE Stop: 11/21/19 15:35 Last Admin: 11/21/19 16:34 Dose: 1,000 mg Documented by: Azithromycin (Zithromax) Confirm Administered Dose 500 mg .ROUTE .STK-MED ONE Stop: 11/21/19 19:19 Last Admin: 11/21/19 21:24 Dose: Not Given Documented by: Budesonide (Pulmicort) 0.5 mg NEB ASDIRECTED PRN PRN Reason: Shortness of Breath Dexamethasone (Dexamethasone) 6 mg PO ONETIME ONE Stop: 11/21/19 15:48 Last Admin: 11/21/19 16:34 Dose: 6 mg Documented by: Dexamethasone (Dexamethasone) 6 mg IVPUSH DAILY [facility] Stop: 11/30/19 09:01 Last Admin: 11/21/19 18:33 Dose: Not Given Documented by: Lactated Ringer's (Ringers, Lactated) 1,000 mls @ 125 mls/hr IV ASDIRECTED [facility] Last Admin: 11/21/19 16:37 Dose: 125 mls/hr Documented by: Remdesivir 200 mg/ Sodium (Chloride) 210 mls @ 210 mls/hr IV ONETIME ONE Stop: 11/21/19 17:59 Last Admin: 11/21/19 17:14 Dose: 210 mls/hr Documented by: Ceftriaxone Sodium 1 gm/ (Sodium Chloride) 50 mls @ 100 mls/hr IV Q24H [facility] Last Admin: 11/21/19 18:33 Dose: Not Given Documented by: Azithromycin 500 mg/ Sodium (Chloride) 250 mls @ 250 mls/hr IV Q24H [facility] Last Admin: 11/21/19 18:33 Dose: Not Given Documented by: Sodium Chloride (Normal Saline) 1,000 mls @ 125 mls/hr IV ASDIRECTED [facility] Stop: 11/22/19 02:14 Last Admin: 11/21/19 18:34 Dose: 125 mls/hr Documented by: Ceftriaxone Sodium 1 gm/ (Sodium Chloride) 50 mls @ 100 mls/hr IV Q24H [facility] Azithromycin 500 mg/ Sodium (Chloride) 250 mls @ 250 mls/hr IV Q24H [facility] - Exam Quality Assessment: Supplemental Oxygen, DVT Prophylaxis General: Alert, Oriented HEENT: Pupils Equal, Pupils Reactive, EOMI, Mucous Membr. Moist/[place] Neck: Supple Lungs: Clear to Auscultation, Normal Respiratory Effort Cardiovascular: Regular Rate, Regular Rhythm GI/Abdominal Exam: Normal Bowel Sounds, Soft, Non-Tender, No Organomegaly, No Distention, No Abnormal Bruit, No Mass, Pelvis Stable (Male) Exam: No Hernia, Normal Inspection, Normal Prostate, Circumcised Back Exam: Normal Inspection, Full Range of Motion Extremities: Normal Inspection, Normal Range of Motion, Non-Tender, No Pedal Edema, Normal Capillary Refill Skin: Warm, Dry, Intact Wound/Incisions: Healing Well Neurological: No New Focal Deficit Psy/Mental Status: Alert, Normal Affect, Normal Mood Sepsis Event Note - Evaluation Sepsis Screening Result: No Definite Risk - Focused Exam Vital Signs: Vital Signs Temp Pulse Pulse Resp BP BP Pulse Ox 11/22/19 09:18 74 137/80 11/22/19 08:00 97.7 F 74 18 137/80 92 L 11/22/19 03:53 98.5 F 80 16 125/74 91 L 11/22/19 00:00 98.1 F 80 16 140/78 94 L - Problem List Review Problem List Initiated/Reviewed/Updated: Yes - My Orders Last 24 Hours: My Active Orders 11/22/19 08:32 Verify Patient Consent Obtain [RC] ASDIRECTED Transfuse Fresh Frozen Plasma [COMM] Routine - Plan Plan:: COVID associated pneumonia Acute hypoxic respiratory failure Sepsis Gastroenteritis Continue Decadron IV 6 mg daily Continue Remdesevir Anticoagulation with Lovenox 40 mg subcut twice daily 2 units of convalescent plasma Start ceftriaxone and azithromycin Oxygen supplementation as needed Obtain daily COVID labs COPD/asthma Resume home inhalers Hypertension Resume home antihypertensives Type 2 diabetes mellitus Hold home metformin Sliding scale insulin with hypoglycemia protocol 4 times daily fingerstick checks Gout Resume home allopurinol Hyperlipidemia Resume home statin therapy
[2019-11-22] MEDS ORDERED: Azithromycin 500 MG in Sodium Chloride 0.9% 250 ML IV SCH (10:09)
[2019-11-22] MEDS: Furosemide 40 MG Tab PO SCH (11:08)
[2019-11-22] MEDS: cefTRIAXone 1 GM in Sodium Chloride 0.9% 50 ML IV SCH (18:26)
[2019-11-22] MEDS: Sodium Chloride 0.9% 10 ML Syringe FLUSH PRN (19:17)
[2019-11-22] MEDS: Azithromycin 500 MG in Sodium Chloride 0.9% 250 ML IV SCH (19:21)
[2019-11-22] MEDS: Simvastatin 10 MG Tab PO SCH (21:00)
[2019-11-23 07:32] LABS: ANION GAP 12.6 mEq/L (7-13); CHLORIDE,CL 104 mmol/L (98-107); SODIUM,NA 141 mmol/L (136-145)
[2019-11-23] MEDS: Insulin Lispro 100 Units/ML 3 ML Vial SUBCUT SCH ×3 (08:39→17:41)
[2019-11-23] MEDS: Sodium Chloride 0.9% 10 ML Syringe FLUSH PRN ×4 (08:40→21:59)
[2019-11-23] MEDS: Enoxaparin 40 MG/0.4 ML Syringe SUBCUT SCH ×2 (08:42→22:00)
[2019-11-23] MEDS: Metoprolol Succinate 50 MG Tab.ER PO SCH (08:44)
[2019-11-23] MEDS: amLODIPine 5 MG Tab PO SCH (08:45)
[2019-11-23] MEDS: Allopurinol 300 MG Tab PO SCH (08:45)
[2019-11-23] MEDS: Furosemide 40 MG Tab PO SCH (08:45)
[2019-11-23] MEDS: Multivitamins,Therapeutic Tab PO SCH (08:45)
[2019-11-23] MEDS: QUINAPRIL 40 MG PO SCH (08:46)
[2019-11-23] MEDS: VILANTEROL INH SCH (08:47)
[2019-11-23] MEDS: UMECLIDINIUM BRM INH SCH (08:47)
[2019-11-23] MEDS: BECLOMETHASONE DIPROPIONATE 80 MCG INH SCH ×2 (08:47→22:02)
[2019-11-23] MEDS: Dexamethasone 4 MG/ML SDV IVPUSH SCH (08:56)
--- NOTE | 2019-11-23 10:57 | PCM.PN ---
- General Info Date of Service: 11/23/19 Admission Dx/Problem (Free Text): Admission Diagnosis/Problem Admission Diagnosis/Problem COVID-19 associated pneumonia Subjective Update: Patient seen and examined today. Overall patient remained stable and doing okay. Oxygen requirement improved. He is currently on room and saturating around 90%. Cough is improved. He denies fever, chills. No abdominal pain nausea vomiting. Labs reviewed. Vitals stable. Functional Status: Reports: Pain Controlled - Review of Systems General: Reports: No Symptoms HEENT: Reports: No Symptoms Pulmonary: Reports: No Symptoms Cardiovascular: Reports: No Symptoms Gastrointestinal: Reports: No Symptoms Genitourinary: Reports: No Symptoms Musculoskeletal: Reports: No Symptoms Skin: Reports: No Symptoms Neurological: Reports: No Symptoms Psychiatric: Reports: No Symptoms - Patient Data Vitals - Most Recent: Last Vital Signs Temp 97.3 F 11/23/19 08:35 Pulse 60 11/23/19 08:44 Resp 20 11/23/19 08:35 BP 127/74 11/23/19 08:45 Pulse Ox 90 L 11/23/19 10:36 Weight - Most Recent: 294 lb 3.2 oz I&O - Last 24 Hours: Intake & Output 11/22/19 11/23/19 11/23/19 22:59 06:59 14:59 Intake Total 1062 100 Output Total 1100 575 350 Balance -38 475 -350 Lab Results Last 24 Hours: Laboratory Results - last 24 hr 11/21/19 11/22/19 11/22/19 Range/Units 14:18 06:37 11:40 WBC (5.0-10.0) 10^3/uL RBC (4.6-6.2) 10^6/uL Hgb (14.0-18.0) g/dL Hct (40.0-54.0) % MCV (80-100) fL MCH (27.0-34.0) pg MCHC (33.0-35.0) g/dL Plt Count (150-450) 10^3/uL Neut % (Auto) (42.2-75.2) % Lymph % (Auto) (20.5-50.1) % [place] % (Auto) (2-8) % Eos % (Auto) (1.0-3.0) % Baso % (Auto) (0.0-1.0) % Add Manual Diff Neutrophils % (Manual) (42-75) % Band Neutrophils % % Lymphocytes % (Manual) (20-50) % Atypical Lymphs % % Monocytes % (Manual) (2-8) % Metamyelocytes % D-Dimer, Quantitative (0-400) ng/mL Sodium (136-145) mmol/L Potassium (3.5-5.1) mmol/L Chloride (98-107) mmol/L Carbon Dioxide (21-32) mmol/L Anion Gap (7-13) mEq/L BUN (7-18) mg/dL Creatinine (0.70-1.30) mg/dL Est Cr Clr Drug Dosing mL/min Estimated GFR (MDRD) Glucose (74-99) mg/dL POC Glucose 205 H (70-105) mg/dl Calcium (8.5-10.1) mg/dL Ferritin (26-388) mg/mL Total Bilirubin (0.2-1.0) mg/dL Direct Bilirubin (0.0-0.2) mg/dL Indirect Bilirubin AST (15-37) U/L ALT (16-63) U/L Alkaline Phosphatase (46-116) U/L Lactate Dehydrogenase (85-227) U/L Total Protein (6.4-8.2) g/dL Albumin (3.4-5.0) g/dL Globulin Albumin/Globulin Ratio Procalcitonin <0.05 <0.05 (<0.10) ng/mL 11/22/19 11/22/19 11/23/19 Range/Units 16:38 20:57 06:45 WBC 10.4 H (5.0-10.0) 10^3/uL RBC 4.88 (4.6-6.2) 10^6/uL Hgb 14.0 (14.0-18.0) g/dL Hct 41.8 (40.0-54.0) % MCV 85.7 (80-100) fL MCH 28.7 (27.0-34.0) pg MCHC 33.5 (33.0-35.0) g/dL Plt Count 274 (150-450) 10^3/uL Neut % (Auto) 76.5 H (42.2-75.2) % Lymph % (Auto) 15.1 L (20.5-50.1) % [place] % (Auto) 8.2 H (2-8) % Eos % (Auto) 0.1 L (1.0-3.0) % Baso % (Auto) 0.1 (0.0-1.0) % Add Manual Diff Yes Neutrophils % (Manual) 75 (42-75) % Band Neutrophils % 4 % Lymphocytes % (Manual) 9 L (20-50) % Atypical Lymphs % 4 % Monocytes % (Manual) 7 (2-8) % Metamyelocytes % 1 D-Dimer, Quantitative (0-400) ng/mL Sodium (136-145) mmol/L Potassium (3.5-5.1) mmol/L Chloride (98-107) mmol/L Carbon Dioxide (21-32) mmol/L Anion Gap (7-13) mEq/L BUN (7-18) mg/dL Creatinine (0.70-1.30) mg/dL Est Cr Clr Drug Dosing mL/min Estimated GFR (MDRD) Glucose (74-99) mg/dL POC Glucose 146 H 118 H (70-105) mg/dl Calcium (8.5-10.1) mg/dL Ferritin (26-388) mg/mL Total Bilirubin (0.2-1.0) mg/dL Direct Bilirubin (0.0-0.2) mg/dL Indirect Bilirubin AST (15-37) U/L ALT (16-63) U/L Alkaline Phosphatase (46-116) U/L Lactate Dehydrogenase (85-227) U/L Total Protein (6.4-8.2) g/dL Albumin (3.4-5.0) g/dL Globulin Albumin/Globulin Ratio Procalcitonin (<0.10) ng/mL 11/23/19 11/23/19 11/23/19 Range/Units 06:45 06:45 06:45 WBC (5.0-10.0) 10^3/uL RBC (4.6-6.2) 10^6/uL Hgb (14.0-18.0) g/dL Hct (40.0-54.0) % MCV (80-100) fL MCH (27.0-34.0) pg MCHC (33.0-35.0) g/dL Plt Count (150-450) 10^3/uL Neut % (Auto) (42.2-75.2) % Lymph % (Auto) (20.5-50.1) % [place] % (Auto) (2-8) % Eos % (Auto) (1.0-3.0) % Baso % (Auto) (0.0-1.0) % Add Manual Diff Neutrophils % (Manual) (42-75) % Band Neutrophils % % Lymphocytes % (Manual) (20-50) % Atypical Lymphs % % Monocytes % (Manual) (2-8) % Metamyelocytes % D-Dimer, Quantitative 827 H (0-400) ng/mL Sodium 141 (136-145) mmol/L Potassium 4.6 (3.5-5.1) mmol/L Chloride 104 (98-107) mmol/L Carbon Dioxide 29 (21-32) mmol/L Anion Gap 12.6 (7-13) mEq/L BUN 21 H (7-18) mg/dL Creatinine 0.90 (0.70-1.30) mg/dL Est Cr Clr Drug Dosing 94.13 mL/min Estimated GFR (MDRD) > 60 Glucose 136 H (74-99) mg/dL POC Glucose (70-105) mg/dl Calcium 8.7 (8.5-10.1) mg/dL Ferritin 477 H (26-388) mg/mL Total Bilirubin 0.6 (0.2-1.0) mg/dL Direct Bilirubin 0.1 (0.0-0.2) mg/dL Indirect Bilirubin 0.5 AST 18 (15-37) U/L ALT 25 (16-63) U/L Alkaline Phosphatase 50 (46-116) U/L Lactate Dehydrogenase 222 (85-227) U/L Total Protein 7.5 (6.4-8.2) g/dL Albumin 3.0 L (3.4-5.0) g/dL Globulin 4.5 Albumin/Globulin Ratio 0.67 Procalcitonin (<0.10) ng/mL 11/23/19 Range/Units 08:39 WBC (5.0-10.0) 10^3/uL RBC (4.6-6.2) 10^6/uL Hgb (14.0-18.0) g/dL Hct (40.0-54.0) % MCV (80-100) fL MCH (27.0-34.0) pg MCHC (33.0-35.0) g/dL Plt Count (150-450) 10^3/uL Neut % (Auto) (42.2-75.2) % Lymph % (Auto) (20.5-50.1) % [place] % (Auto) (2-8) % Eos % (Auto) (1.0-3.0) % Baso % (Auto) (0.0-1.0) % Add Manual Diff Neutrophils % (Manual) (42-75) % Band Neutrophils % % Lymphocytes % (Manual) (20-50) % Atypical Lymphs % % Monocytes % (Manual) (2-8) % Metamyelocytes % D-Dimer, Quantitative (0-400) ng/mL Sodium (136-145) mmol/L Potassium (3.5-5.1) mmol/L Chloride (98-107) mmol/L Carbon Dioxide (21-32) mmol/L Anion Gap (7-13) mEq/L BUN (7-18) mg/dL Creatinine (0.70-1.30) mg/dL Est Cr Clr Drug Dosing mL/min Estimated GFR (MDRD) Glucose (74-99) mg/dL POC Glucose 120 H (70-105) mg/dl Calcium (8.5-10.1) mg/dL Ferritin (26-388) mg/mL Total Bilirubin (0.2-1.0) mg/dL Direct Bilirubin (0.0-0.2) mg/dL Indirect Bilirubin AST (15-37) U/L ALT (16-63) U/L Alkaline Phosphatase (46-116) U/L Lactate Dehydrogenase (85-227) U/L Total Protein (6.4-8.2) g/dL Albumin (3.4-5.0) g/dL Globulin Albumin/Globulin Ratio Procalcitonin (<0.10) ng/mL [place] Results Last 24 Hours: Microbiology 11/21/19 15:14 Streptococcus pneumoniae Antigen (M - Final Urine 11/21/19 17:50 Aerobic Blood Culture - Preliminary Blood - Venous - Lab Draw NO GROWTH AFTER 1 DAY Anaerobic Blood Culture - Preliminary NO GROWTH AFTER 1 DAY 11/21/19 17:45 Aerobic Blood Culture - Preliminary Blood - Venous NO GROWTH AFTER 1 DAY Anaerobic Blood Culture - Preliminary NO GROWTH AFTER 1 DAY Med Orders - Current: Current Medications Acetaminophen (Tylenol) 650 mg PO Q4H PRN PRN Reason: Pain (Mild 1-3)/fever Albuterol (Proventil Hfa) 0 gm INH Q4H PRN PRN Reason: Wheezing Albuterol/Ipratropium (Duoneb 3.0-0.5 Mg/3 Ml) 3 ml INH Q6H PRN PRN Reason: Shortness of Breath Allopurinol (Zyloprim) 300 mg PO DAILY [facility] Last Admin: 11/23/19 08:45 Dose: 300 mg Documented by: Amlodipine Besylate (Norvasc) 5 mg PO DAILY [facility] Last Admin: 11/23/19 08:45 Dose: 5 mg Documented by: Dexamethasone (Dexamethasone) 6 mg IVPUSH DAILY [facility] Stop: 11/30/19 09:01 Last Admin: 11/23/19 08:56 Dose: 6 mg Documented by: Enoxaparin Sodium (Lovenox) 40 mg SUBCUT BID [facility] Last Admin: 11/23/19 08:42 Dose: 40 mg Documented by: Furosemide (Lasix) 40 mg PO DAILY [facility] Last Admin: 11/23/19 08:45 Dose: 40 mg Documented by: Remdesivir 100 mg/ Sodium (Chloride) 230 mls @ 230 mls/hr IV Q24H [facility] Stop: 11/25/19 17:59 Last Infusion: 11/22/19 17:53 Dose: Infused Documented by: Ceftriaxone Sodium 1 gm/ (Sodium Chloride) 50 mls @ 100 mls/hr IV Q24H [facility] Last Infusion: 11/22/19 19:22 Dose: Infused Documented by: Azithromycin 500 mg/ Sodium (Chloride) 250 mls @ 250 mls/hr IV Q24H [facility] Last Admin: 11/22/19 19:21 Dose: 250 mls/hr Documented by: Insulin Human Lispro (Humalog) 0 unit SUBCUT WITHMEALSANDBED [facility]; Protocol Last Admin: 11/23/19 08:39 Dose: Not Given Documented by: Metoprolol Succinate (Toprol Xl) 200 mg PO DAILY [facility] Last Admin: 11/23/19 08:44 Dose: 200 mg Documented by: Multivitamins (Thera) 1 each PO DAILY [facility] Last Admin: 11/23/19 08:45 Dose: 1 each Documented by: Beclomethasone Dipropionate [Qvar] 80 Mcg Pt Own Med* * 2 puff INH BID [facility] Last Admin: 11/23/19 08:47 Dose: 2 puff Documented by: Quinapril [Accupril] 40 Mg Pt Own Med* * 0 mg PO DAILY [facility] Last Admin: 11/23/19 08:46 Dose: 40 mg Documented by: Umeclidinium Brm/Vilanterol [Anoro Ellipta 62.5-25 Mcg] Pt Own Med 0 each INH DAILY [facility] Last Admin: 11/23/19 08:47 Dose: 1 each Documented by: Ondansetron HCl (Zofran) 4 mg IVPUSH Q6H PRN PRN Reason: Nausea/Vomiting Ondansetron HCl (Zofran Odt) 4 mg PO Q6H PRN PRN Reason: nausea, able to take PO Simvastatin (Zocor) 20 mg PO BEDTIME [facility] Last Admin: 11/22/19 21:00 Dose: 20 mg Documented by: Sodium Chloride (Saline Flush) 10 ml FLUSH ASDIRECTED PRN PRN Reason: Keep Vein Open Last Admin: 11/23/19 08:40 Dose: 10 ml Documented by: Sodium Chloride (Saline Flush) 30 ml FLUSH DAILY@1700 [facility] Stop: 11/25/19 17:01 Discontinued Medications Acetaminophen (Tylenol Extra Strength) 1,000 mg PO ONETIME ONE Stop: 11/21/19 15:35 Last Admin: 11/21/19 16:34 Dose: 1,000 mg Documented by: Azithromycin (Zithromax) Confirm Administered Dose 500 mg .ROUTE .STK-MED ONE Stop: 11/21/19 19:19 Last Admin: 11/21/19 21:24 Dose: Not Given Documented by: Budesonide (Pulmicort) 0.5 mg NEB ASDIRECTED PRN PRN Reason: Shortness of Breath Dexamethasone (Dexamethasone) 6 mg PO ONETIME ONE Stop: 11/21/19 15:48 Last Admin: 11/21/19 16:34 Dose: 6 mg Documented by: Dexamethasone (Dexamethasone) 6 mg IVPUSH DAILY [facility] Stop: 11/30/19 09:01 Last Admin: 11/21/19 18:33 Dose: Not Given Documented by: Lactated Ringer's (Ringers, Lactated) 1,000 mls @ 125 mls/hr IV ASDIRECTED [facility] Last Admin: 11/21/19 16:37 Dose: 125 mls/hr Documented by: Remdesivir 200 mg/ Sodium (Chloride) 210 mls @ 210 mls/hr IV ONETIME ONE Stop: 11/21/19 17:59 Last Admin: 11/21/19 17:14 Dose: 210 mls/hr Documented by: Ceftriaxone Sodium 1 gm/ (Sodium Chloride) 50 mls @ 100 mls/hr IV Q24H [facility] Last Admin: 11/21/19 18:33 Dose: Not Given Documented by: Azithromycin 500 mg/ Sodium (Chloride) 250 mls @ 250 mls/hr IV Q24H [facility] Last Admin: 11/21/19 18:33 Dose: Not Given Documented by: Sodium Chloride (Normal Saline) 1,000 mls @ 125 mls/hr IV ASDIRECTED [facility] Stop: 11/22/19 02:14 Last Admin: 11/21/19 18:34 Dose: 125 mls/hr Documented by: Ceftriaxone Sodium 1 gm/ (Sodium Chloride) 50 mls @ 100 mls/hr IV Q24H [facility] Azithromycin 500 mg/ Sodium (Chloride) 250 mls @ 250 mls/hr IV Q24H [facility] Ceftriaxone Sodium 1 gm/ (Sodium Chloride) 50 mls @ 100 mls/hr IV Q24H [facility] Last Admin: 11/21/19 18:42 Dose: Not Given Documented by: Azithromycin 500 mg/ Sodium (Chloride) 250 mls @ 250 mls/hr IV Q24H [facility] Last Admin: 11/21/19 20:55 Dose: 250 mls/hr Documented by: Ceftriaxone Sodium 1 gm/ (Sodium Chloride) 100 mls @ 200 mls/hr IV Q24H [facility] Last Admin: 11/21/19 18:39 Dose: 200 mls/hr Documented by: - Exam Quality Assessment: DVT Prophylaxis General: Alert, Oriented HEENT: Pupils Equal, Pupils Reactive, EOMI, Mucous Membr. Moist/[place] Neck: Supple Lungs: Clear to Auscultation, Normal Respiratory Effort Cardiovascular: Regular Rate, Regular Rhythm GI/Abdominal Exam: Normal Bowel Sounds, Soft, Non-Tender, No Organomegaly, No Distention, No Abnormal Bruit, No Mass, Pelvis Stable (Male) Exam: No Hernia, Normal Inspection, Normal Prostate, Circumcised Back Exam: Normal Inspection, Full Range of Motion Extremities: Normal Inspection, Normal Range of Motion, Non-Tender, No Pedal Edema, Normal Capillary Refill Skin: Warm, Dry, Intact Wound/Incisions: Healing Well Neurological: No New Focal Deficit Psy/Mental Status: Alert, Normal Affect, Normal Mood Sepsis Event Note - Evaluation Sepsis Screening Result: No Definite Risk - Focused Exam Vital Signs: Vital Signs Temp Pulse Pulse Resp BP BP BP 11/23/19 10:36 11/23/19 09:17 11/23/19 08:45 127/74 11/23/19 08:44 60 127/74 11/23/19 08:35 97.3 F 59 L 20 127/74 11/23/19 05:15 97 F 72 20 143/93 H 11/22/19 23:09 97.5 F 72 20 122/67 Pulse Ox Pulse Ox Pulse Ox 11/23/19 10:36 90 L 11/23/19 09:17 92 L 11/23/19 08:45 11/23/19 08:44 11/23/19 08:35 92 L 11/23/19 05:15 95 11/22/19 23:09 90 L - Problem List Review Problem List Initiated/Reviewed/Updated: Yes - My Orders Last 24 Hours: My Active Orders 11/22/19 10:00 Furosemide [Lasix] 40 mg PO DAILY - Plan Plan:: COVID associated pneumonia Acute hypoxic respiratory failure Sepsis Gastroenteritis Continue Decadron IV 6 mg daily Continue Remdesevir S/p 2 units of convalescent plasma Continue ceftriaxone and azithromycin Oxygen supplementation as needed Anticoagulation with Lovenox 40 mg subcut twice daily Obtain daily COVID labs COPD/asthma Resume home inhalers Hypertension Resume home antihypertensives Type 2 diabetes mellitus Hold home metformin Sliding scale insulin with hypoglycemia protocol 4 times daily fingerstick checks Gout Resume home allopurinol Hyperlipidemia Resume home statin therapy
[2019-11-23] MEDS ORDERED: Sodium Chloride 0.9% 10 ML Syringe FLUSH SCH (17:00)
[2019-11-23] MEDS: cefTRIAXone 1 GM in Sodium Chloride 0.9% 50 ML IV SCH (18:47)
[2019-11-23] MEDS: Azithromycin 500 MG in Sodium Chloride 0.9% 250 ML IV SCH (19:30)
[2019-11-23] MEDS ORDERED: Melatonin 3 MG Tab PO PRN (21:00)
[2019-11-23] MEDS: Simvastatin 10 MG Tab PO SCH (22:00)
[2019-11-24] MEDS: Insulin Lispro 100 Units/ML 3 ML Vial SUBCUT SCH ×2 (01:18→09:26)
[2019-11-24 06:36] LABS: ANION GAP 11.5 mEq/L (7-13); CHLORIDE,CL 105 mmol/L (98-107); SODIUM,NA 141 mmol/L (136-145)
--- NOTE | 2019-11-24 09:48 | PCM.DCSUM1 ---
Discharge Summary - Hospital Course Free Text/Narrative:: Patient is a 59-year-old male with a medical history of type 2 diabetes mellitus, hypertension, COPD/asthma, gout, recent diagnosis of COVID-19 who presented to the ED with complaints of shortness of breath, fever, diarrhea and generalized weakness. Patient was admitted for acute respiratory failure with hypoxia due to COVID-19 pneumonia. Patient was subsequently admitted. He received convalescent plasma, Remdesevir, dexamethasone and supportive care. He responded to treatment. He was eventually weaned off oxygen and remained stable on room air. His overall symptoms improved. He was safely discharged home with plan to follow-up with PCP. Diagnosis: Stroke: No - Discharge Data Discharge Date: 11/24/19 Discharge Disposition: Home, Self-Care 01 Condition: Good - Referral to Home Health Primary Care Physician: Nnamdi Connors MD - Patient Instructions Diet: Heart Healthy Diet Activity: As Tolerated Driving: May Drive Today Showering/Bathing: May Shower Notify Provider of: Fever, Increased Pain, Swelling and Redness, Nausea and/or Vomiting - Discharge Plan *PRESCRIPTION DRUG MONITORING PROGRAM REVIEWED*: Not Applicable *COPY OF PRESCRIPTION DRUG MONITORING REPORT IN PATIENT ROSE: Not Applicable Prescriptions/Med Rec: Aspirin 325 mg PO DAILY 30 Days #30 tablet dexAMETHasone [Decadron] 6 mg PO DAILY #7 tablet Furosemide [Lasix] 40 mg PO DAILY #10 tablet levoFLOXacin [Levaquin] 750 mg IV DAILY #5 sdv Home Medications: Home Meds Multivitamin with Minerals [Multiple Vitamin] 1 tab PO DAILY 05/17/13 [History] Quinapril [Accupril] 40 mg PO DAILY 05/17/13 [History] Albuterol [Proventil Neb Soln] 2.5 mg NEB Q4H PRN 12/17/14 [History] Budesonide [Pulmicort] 0.5 mg NEB BID 12/17/14 [History] Simvastatin 20 mg PO BEDTIME 12/17/14 [History] Albuterol [Proventil HFA] 2 puff INH Q4HR PRN 05/27/16 [History] Beclomethasone Dipropionate [Qvar] 2 puff IH BID 05/27/16 [History] Umeclidinium Brm/Vilanterol Tr [Anoro Ellipta 62.5-25 MCG] 1 puff IH DAILY 05/27/16 [History] Allopurinol [Zyloprim] 300 mg PO DAILY 01/16/17 [History] Metoprolol Succinate 200 mg PO DAILY 01/22/19 [History] amLODIPine [Norvasc] 5 mg PO DAILY 01/22/19 [History] metFORMIN [Glucophage] 500 mg PO BID 01/22/19 [History] Albuterol/Ipratropium [DuoNeb 3.0-0.5 MG/3 ML] 3 ml INH Q6H PRN #30 neb 01/24/19 [Rx] Aspirin 325 mg PO DAILY 30 Days #30 tablet 11/24/19 [Rx] Furosemide [Lasix] 40 mg PO DAILY #10 tablet 11/24/19 [Rx] dexAMETHasone [Decadron] 6 mg PO DAILY #7 tablet 11/24/19 [Rx] levoFLOXacin [Levaquin] 750 mg IV DAILY #5 sdv 11/24/19 [Rx] Oxygen Therapy Mode: Room Air Patient Handouts: Hypoxia, COVID-19, COVID-19: How to Protect Yourself and Others - [facility] Referrals: Nnamdi Connors MD [Primary Care Provider] - - Discharge Summary/Plan Comment DC Time >30 min.: Yes - General Info Date of Service: 11/24/19 Admission Dx/Problem (Free Text: Admission Diagnosis/Problem Admission Diagnosis/Problem COVID-19 associated pneumonia Subjective Update: Patient seen and examined today. Overall patient remained stable and doing okay. He is currently on room and saturating around 90%. Cough is improved. He denies fever, chills. No abdominal pain nausea vomiting. Labs reviewed. Vitals stable. Functional Status: Reports: Pain Controlled - Review of Systems General: Reports: No Symptoms HEENT: Reports: No Symptoms Pulmonary: Reports: No Symptoms Cardiovascular: Reports: No Symptoms Gastrointestinal: Reports: No Symptoms Genitourinary: Reports: No Symptoms Musculoskeletal: Reports: No Symptoms Skin: Reports: No Symptoms Neurological: Reports: No Symptoms Psychiatric: Reports: No Symptoms - Patient Data Vitals - Most Recent: Last Vital Signs Temp 97.6 F 11/24/19 03:44 Pulse 72 11/24/19 03:44 Resp 20 11/24/19 03:44 BP 147/77 H 11/24/19 03:44 Pulse Ox 94 L 11/24/19 03:44 Weight - Most Recent: 294 lb 3.2 oz I&O - Last 24 hours: Intake & Output 11/23/19 11/24/19 11/24/19 22:59 06:59 14:59 Intake Total 3188 400 Output Total 1500 550 Balance 1688 -150 Lab Results - Last 24 hrs: Laboratory Results - last 24 hr 11/23/19 11/23/19 11/23/19 Range/Units 06:45 12:29 17:24 WBC (5.0-10.0) 10^3/uL RBC (4.6-6.2) 10^6/uL Hgb (14.0-18.0) g/dL Hct (40.0-54.0) % MCV (80-100) fL MCH (27.0-34.0) pg MCHC (33.0-35.0) g/dL Plt Count (150-450) 10^3/uL Neut % (Auto) (42.2-75.2) % Lymph % (Auto) (20.5-50.1) % Frederick % (Auto) (2-8) % Eos % (Auto) (1.0-3.0) % Baso % (Auto) (0.0-1.0) % Add Manual Diff Neutrophils % (Manual) (42-75) % Band Neutrophils % % Lymphocytes % (Manual) (20-50) % Monocytes % (Manual) (2-8) % Atypical Lymphocytes Platelet Estimate D-Dimer, Quantitative (0-400) ng/mL Sodium (136-145) mmol/L Potassium (3.5-5.1) mmol/L Chloride (98-107) mmol/L Carbon Dioxide (21-32) mmol/L Anion Gap (7-13) mEq/L BUN (7-18) mg/dL Creatinine (0.70-1.30) mg/dL Est Cr Clr Drug Dosing mL/min Estimated GFR (MDRD) Glucose (74-99) mg/dL POC Glucose 125 H 124 H (70-105) mg/dl Calcium (8.5-10.1) mg/dL Ferritin (26-388) mg/mL Total Bilirubin (0.2-1.0) mg/dL Direct Bilirubin (0.0-0.2) mg/dL Indirect Bilirubin AST (15-37) U/L ALT (16-63) U/L Alkaline Phosphatase (46-116) U/L Lactate Dehydrogenase (85-227) U/L Total Protein (6.4-8.2) g/dL Albumin (3.4-5.0) g/dL Globulin Albumin/Globulin Ratio Procalcitonin <0.05 (<0.10) ng/mL 11/23/19 11/24/19 11/24/19 Range/Units 21:57 06:10 06:10 WBC 9.7 (5.0-10.0) 10^3/uL RBC 4.84 (4.6-6.2) 10^6/uL Hgb 13.8 L (14.0-18.0) g/dL Hct 41.8 (40.0-54.0) % MCV 86.4 (80-100) fL MCH 28.5 (27.0-34.0) pg MCHC 33.0 (33.0-35.0) g/dL Plt Count 315 (150-450) 10^3/uL Neut % (Auto) 75.1 (42.2-75.2) % Lymph % (Auto) 15.5 L (20.5-50.1) % Frederick % (Auto) 9.2 H (2-8) % Eos % (Auto) 0.1 L (1.0-3.0) % Baso % (Auto) 0.1 (0.0-1.0) % Add Manual Diff Yes Neutrophils % (Manual) 74 (42-75) % Band Neutrophils % 4 % Lymphocytes % (Manual) 16 L (20-50) % Monocytes % (Manual) 6 (2-8) % Atypical Lymphocytes Few Platelet Estimate Adequate D-Dimer, Quantitative 710 H (0-400) ng/mL Sodium (136-145) mmol/L Potassium (3.5-5.1) mmol/L Chloride (98-107) mmol/L Carbon Dioxide (21-32) mmol/L Anion Gap (7-13) mEq/L BUN (7-18) mg/dL Creatinine (0.70-1.30) mg/dL Est Cr Clr Drug Dosing mL/min Estimated GFR (MDRD) Glucose (74-99) mg/dL POC Glucose 128 H (70-105) mg/dl Calcium (8.5-10.1) mg/dL Ferritin (26-388) mg/mL Total Bilirubin (0.2-1.0) mg/dL Direct Bilirubin (0.0-0.2) mg/dL Indirect Bilirubin AST (15-37) U/L ALT (16-63) U/L Alkaline Phosphatase (46-116) U/L Lactate Dehydrogenase (85-227) U/L Total Protein (6.4-8.2) g/dL Albumin (3.4-5.0) g/dL Globulin Albumin/Globulin Ratio Procalcitonin (<0.10) ng/mL 11/24/19 11/24/19 11/24/19 Range/Units 06:10 06:10 08:14 WBC (5.0-10.0) 10^3/uL RBC (4.6-6.2) 10^6/uL Hgb (14.0-18.0) g/dL Hct (40.0-54.0) % MCV (80-100) fL MCH (27.0-34.0) pg MCHC (33.0-35.0) g/dL Plt Count (150-450) 10^3/uL Neut % (Auto) (42.2-75.2) % Lymph % (Auto) (20.5-50.1) % Frederick % (Auto) (2-8) % Eos % (Auto) (1.0-3.0) % Baso % (Auto) (0.0-1.0) % Add Manual Diff Neutrophils % (Manual) (42-75) % Band Neutrophils % % Lymphocytes % (Manual) (20-50) % Monocytes % (Manual) (2-8) % Atypical Lymphocytes Platelet Estimate D-Dimer, Quantitative (0-400) ng/mL Sodium 141 (136-145) mmol/L Potassium 4.5 (3.5-5.1) mmol/L Chloride 105 (98-107) mmol/L Carbon Dioxide 29 (21-32) mmol/L Anion Gap 11.5 (7-13) mEq/L BUN 23 H (7-18) mg/dL Creatinine 1.00 (0.70-1.30) mg/dL Est Cr Clr Drug Dosing 84.71 mL/min Estimated GFR (MDRD) > 60 Glucose 117 H (74-99) mg/dL POC Glucose 99 (70-105) mg/dl Calcium 8.6 (8.5-10.1) mg/dL Ferritin 400 H (26-388) mg/mL Total Bilirubin 0.6 (0.2-1.0) mg/dL Direct Bilirubin 0.2 (0.0-0.2) mg/dL Indirect Bilirubin 0.4 AST 14 L (15-37) U/L ALT 25 (16-63) U/L Alkaline Phosphatase 48 (46-116) U/L Lactate Dehydrogenase 213 (85-227) U/L Total Protein 7.3 (6.4-8.2) g/dL Albumin 3.2 L (3.4-5.0) g/dL Globulin 4.1 Albumin/Globulin Ratio 0.78 Procalcitonin (<0.10) ng/mL [place] Results - Last 24 hrs: Microbiology 11/21/19 17:50 Aerobic Blood Culture - Preliminary Blood - Venous - Lab Draw NO GROWTH AFTER 2 DAYS Anaerobic Blood Culture - Preliminary NO GROWTH AFTER 2 DAYS 11/21/19 17:45 Aerobic Blood Culture - Preliminary Blood - Venous NO GROWTH AFTER 2 DAYS Anaerobic Blood Culture - Preliminary NO GROWTH AFTER 2 DAYS 11/21/19 15:14 Streptococcus pneumoniae Antigen (M - Final Urine Med Orders - Current: Current Medications Acetaminophen (Tylenol) 650 mg PO Q4H PRN PRN Reason: Pain (Mild 1-3)/fever Albuterol (Proventil Hfa) 0 gm INH Q4H PRN PRN Reason: Wheezing Albuterol/Ipratropium (Duoneb 3.0-0.5 Mg/3 Ml) 3 ml INH Q6H PRN PRN Reason: Shortness of Breath Allopurinol (Zyloprim) 300 mg PO DAILY [facility] Last Admin: 11/23/19 08:45 Dose: 300 mg Documented by: Amlodipine Besylate (Norvasc) 5 mg PO DAILY [facility] Last Admin: 11/23/19 08:45 Dose: 5 mg Documented by: Dexamethasone (Dexamethasone) 6 mg IVPUSH DAILY [facility] Stop: 11/30/19 09:01 Last Admin: 11/23/19 08:56 Dose: 6 mg Documented by: Enoxaparin Sodium (Lovenox) 40 mg SUBCUT BID [facility] Last Admin: 11/23/19 22:00 Dose: 40 mg Documented by: Furosemide (Lasix) 40 mg PO DAILY [facility] Last Admin: 11/23/19 08:45 Dose: 40 mg Documented by: Remdesivir 100 mg/ Sodium (Chloride) 230 mls @ 230 mls/hr IV Q24H [facility] Stop: 11/25/19 17:59 Last Infusion: 11/23/19 18:40 Dose: Infused Documented by: Ceftriaxone Sodium 1 gm/ (Sodium Chloride) 50 mls @ 100 mls/hr IV Q24H [facility] Last Infusion: 11/23/19 19:27 Dose: Infused Documented by: Azithromycin 500 mg/ Sodium (Chloride) 250 mls @ 250 mls/hr IV Q24H [facility] Last Admin: 11/23/19 19:30 Dose: 250 mls/hr Documented by: Insulin Human Lispro (Humalog) 0 unit SUBCUT WITHMEALSANDBED [facility]; Protocol Last Admin: 11/24/19 09:26 Dose: Not Given Documented by: Melatonin (Melatonin) 3 mg PO BEDTIME PRN PRN Reason: Sleep Metoprolol Succinate (Toprol Xl) 200 mg PO DAILY [facility] Last Admin: 11/23/19 08:44 Dose: 200 mg Documented by: Multivitamins (Thera) 1 each PO DAILY [facility] Last Admin: 11/23/19 08:45 Dose: 1 each Documented by: Beclomethasone Dipropionate [Qvar] 80 Mcg Pt Own Med* * 2 puff INH BID [facility] Last Admin: 11/23/19 22:02 Dose: 2 puff Documented by: Quinapril [Accupril] 40 Mg Pt Own Med* * 0 mg PO DAILY [facility] Last Admin: 11/23/19 08:46 Dose: 40 mg Documented by: Umeclidinium Brm/Vilanterol [Anoro Ellipta 62.5-25 Mcg] Pt Own Med 0 each INH DAILY [facility] Last Admin: 11/23/19 08:47 Dose: 1 each Documented by: Ondansetron HCl (Zofran) 4 mg IVPUSH Q6H PRN PRN Reason: Nausea/Vomiting Ondansetron HCl (Zofran Odt) 4 mg PO Q6H PRN PRN Reason: nausea, able to take PO Simvastatin (Zocor) 20 mg PO BEDTIME [facility] Last Admin: 11/23/19 22:00 Dose: 20 mg Documented by: Sodium Chloride (Saline Flush) 10 ml FLUSH ASDIRECTED PRN PRN Reason: Keep Vein Open Last Admin: 11/23/19 21:59 Dose: 10 ml Documented by: Sodium Chloride (Saline Flush) 30 ml FLUSH DAILY@1700 [facility] Stop: 11/25/19 17:01 Last Admin: 11/23/19 18:42 Dose: 30 ml Documented by: Discontinued Medications Acetaminophen (Tylenol Extra Strength) 1,000 mg PO ONETIME ONE Stop: 11/21/19 15:35 Last Admin: 11/21/19 16:34 Dose: 1,000 mg Documented by: Azithromycin (Zithromax) Confirm Administered Dose 500 mg .ROUTE .STK-MED ONE Stop: 11/21/19 19:19 Last Admin: 11/21/19 21:24 Dose: Not Given Documented by: Budesonide (Pulmicort) 0.5 mg NEB ASDIRECTED PRN PRN Reason: Shortness of Breath Dexamethasone (Dexamethasone) 6 mg PO ONETIME ONE Stop: 11/21/19 15:48 Last Admin: 11/21/19 16:34 Dose: 6 mg Documented by: Dexamethasone (Dexamethasone) 6 mg IVPUSH DAILY [facility] Stop: 11/30/19 09:01 Last Admin: 11/21/19 18:33 Dose: Not Given Documented by: Lactated Ringer's (Ringers, Lactated) 1,000 mls @ 125 mls/hr IV ASDIRECTED [facility] Last Admin: 11/21/19 16:37 Dose: 125 mls/hr Documented by: Remdesivir 200 mg/ Sodium (Chloride) 210 mls @ 210 mls/hr IV ONETIME ONE Stop: 11/21/19 17:59 Last Admin: 11/21/19 17:14 Dose: 210 mls/hr Documented by: Ceftriaxone Sodium 1 gm/ (Sodium Chloride) 50 mls @ 100 mls/hr IV Q24H [facility] Last Admin: 11/21/19 18:33 Dose: Not Given Documented by: Azithromycin 500 mg/ Sodium (Chloride) 250 mls @ 250 mls/hr IV Q24H [facility] Last Admin: 11/21/19 18:33 Dose: Not Given Documented by: Sodium Chloride (Normal Saline) 1,000 mls @ 125 mls/hr IV ASDIRECTED [facility] Stop: 11/22/19 02:14 Last Admin: 11/21/19 18:34 Dose: 125 mls/hr Documented by: Ceftriaxone Sodium 1 gm/ (Sodium Chloride) 50 mls @ 100 mls/hr IV Q24H [facility] Azithromycin 500 mg/ Sodium (Chloride) 250 mls @ 250 mls/hr IV Q24H [facility] Ceftriaxone Sodium 1 gm/ (Sodium Chloride) 50 mls @ 100 mls/hr IV Q24H [facility] Last Admin: 11/21/19 18:42 Dose: Not Given Documented by: Azithromycin 500 mg/ Sodium (Chloride) 250 mls @ 250 mls/hr IV Q24H [facility] Last Admin: 11/21/19 20:55 Dose: 250 mls/hr Documented by: Ceftriaxone Sodium 1 gm/ (Sodium Chloride) 100 mls @ 200 mls/hr IV Q24H [facility] Last Admin: 11/21/19 18:39 Dose: 200 mls/hr Documented by: - Exam Quality Assessment: Reports: DVT Prophylaxis General: Reports: Alert, Oriented HEENT: Reports: Pupils Equal, Pupils Reactive, EOMI, Mucous Membr. Moist/[place] Neck: Reports: Supple Lungs: Reports: Clear to Auscultation, Normal Respiratory Effort Cardiovascular: Reports: Regular Rate, Regular Rhythm GI/Abdominal Exam: Normal Bowel Sounds, Soft, Non-Tender, No Organomegaly, No Distention, No Abnormal Bruit, No Mass, Pelvis Stable (Male) Exam: No Hernia, Normal Inspection, Normal Prostate, Circumcised Rectal (Males) Exam: Normal Exam, Normal Rectal Tone, Prostate Normal Back Exam: Reports: Normal Inspection, Full Range of Motion Extremities: Normal Inspection, Normal Range of Motion, Non-Tender, No Pedal Edema, Normal Capillary Refill Skin: Reports: Warm, Dry, Intact Wound/Incisions: Reports: Healing Well Neurological: Reports: No New Focal Deficit Psy/Mental Status: Reports: Alert, Normal Affect, Normal Mood
[2019-11-24] MEDS: BECLOMETHASONE DIPROPIONATE 80 MCG INH SCH (09:55)
[2019-11-24] MEDS: amLODIPine 5 MG Tab PO SCH (09:56)
[2019-11-24] MEDS: Metoprolol Succinate 50 MG Tab.ER PO SCH (09:57)
[2019-11-24] MEDS: Enoxaparin 40 MG/0.4 ML Syringe SUBCUT SCH (09:58)
[2019-11-24] MEDS: Multivitamins,Therapeutic Tab PO SCH (09:58)
[2019-11-24] MEDS: Furosemide 40 MG Tab PO SCH (09:58)
[2019-11-24] MEDS: Allopurinol 300 MG Tab PO SCH (09:58)
[2019-11-24] MEDS: Dexamethasone 4 MG/ML SDV IVPUSH SCH (09:59)
[2019-11-24] MEDS: UMECLIDINIUM BRM INH SCH (10:00)
[2019-11-24] MEDS: QUINAPRIL 40 MG PO SCH (10:00)
[2019-11-24] MEDS: VILANTEROL INH SCH (10:00)
[2019-11-24 10:01] VITALS: BP 164/82
[2019-11-24 10:50] VITALS: PULSE 57
== END 2019-11-24 10:45 | disposition home or self-care (01) | DRG 720 ==
LOC: DL.ED 14:07 → DL.MS 16:05 → UNDOADMIN 16:06 → DL.MS 16:06
PROVIDERS: ADMIT Internal Medicine; ATTEND Student in an Organized Health Care Education/Training Program
PROC: XW033E5 Introduction of Remdesivir Anti-infective into Peripheral Vein, Percutaneous Approach, New Technology Group 5 (ICD-10-PCS; principal; 2019-11-21)
PROC: XW13325 Transfusion of Convalescent Plasma (Nonautologous) into Peripheral Vein, Percutaneous Approach, New Technology Group 5 (ICD-10-PCS; 2019-11-21)
PROC: 8E0ZXY6 Isolation (ICD-10-PCS; 2019-11-21)
PROC: XW033E5 Introduction of Remdesivir Anti-infective into Peripheral Vein, Percutaneous Approach, New Technology Group 5 (ICD-10-PCS; 2019-11-22)
PROC: XW033E5 Introduction of Remdesivir Anti-infective into Peripheral Vein, Percutaneous Approach, New Technology Group 5 (ICD-10-PCS; 2019-11-23)
DX: A41.89 Other specified sepsis (principal); U07.1 COVID-19; J12.89 Other viral pneumonia; J96.01 Acute respiratory failure with hypoxia; E11.9 Type 2 diabetes mellitus without complications; I10 Essential (primary) hypertension; J44.9 Chronic obstructive pulmonary disease, unspecified; M10.9 Gout, unspecified; E78.00 Pure hypercholesterolemia, unspecified; M51.36 Other intervertebral disc degeneration, lumbar region; M48.061 Spinal stenosis, lumbar region without neurogenic claudication; M47.816 Spondylosis without myelopathy or radiculopathy, lumbar region; K52.9 Noninfective gastroenteritis and colitis, unspecified; E78.5 Hyperlipidemia, unspecified; Z79.899 Other long term (current) drug therapy; Z79.82 Long term (current) use of aspirin; Z79.84 Long term (current) use of oral hypoglycemic drugs; Z88.8 Allergy status to other drugs, medicaments and biological substances; Z87.442 Personal history of urinary calculi; Z98.84 Bariatric surgery status; Z87.891 Personal history of nicotine dependence
CPT/HCPCS: 36415; 36430; 71045; 80048; 80053; 80076; 82550; 82728; 82962; 83605; 83615; 83880; 84145; 85025; 85379; 85610; 85730; 86140; 86900; 86901; 87040; 87899; 93005; 99223; 99232; 99239; 99284; 99285-25; A9270-GY; J0456; J0696; J1100; J1650; J1815-GY; J7030; J7050; J7120; J8540; P9017

== ENCOUNTER 2020-06-24 13:15 | Emergency (ER) | payer BC ==
--- NOTE | 2020-06-24 13:24 | EDM.PDOC ---
ED HPI GENERAL MEDICAL PROBLEM - General Chief Complaint: Cardiovascular Problem Stated Complaint: IN BY AMBULANCE Time Seen by Provider: 06/24/20 13:23 Source of Information: Reports: Patient, EMS, Old Records, RN, RN Notes Reviewed History Limitations: Reports: No Limitations - History of Present Illness INITIAL COMMENTS - FREE TEXT/NARRATIVE: Pt arrives to ER from work by ambulance with report of a witnessed syncopal episode that occurred just after he ate his noon meal. 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 Then seconds later he "woke up" to find co-workers all around him asking him what happened. Witness reported to EMS that the pt suddenly slumped over unconscious for a few seconds then sat up and began looking around, confused as to what had happened. Pt denies any symptoms preceding the syncopal episode. Denies chest pain, palpitations, dizziness, nausea, vomiting, shortness of breath, headache, or visual changes. Onset: Today Duration: Resolved Prior to Arrival Location: Reports: Generalized Improves with: Reports: None Worsens with: Reports: None Associated Symptoms: Reports: No Other Symptoms - Related Data Allergies Allergy/AdvReac Type Severity Reaction Status Date / Time bupropion HCl Allergy Severe Anaphylactic Verified 06/24/20 13:43 [From Wellbutrin] Shock Home Meds: Home Meds Multivitamin with Minerals [Multiple Vitamin] 1 tab PO DAILY 05/17/13 [History] Quinapril [Accupril] 40 mg PO DAILY 05/17/13 [History] Albuterol [Proventil Neb Soln] 2.5 mg NEB Q4H PRN 12/17/14 [History] Budesonide [Pulmicort] 0.5 mg NEB BID 12/17/14 [History] Simvastatin 20 mg PO BEDTIME 12/17/14 [History] Albuterol [Proventil HFA] 2 puff INH Q4HR PRN 05/27/16 [History] Beclomethasone Dipropionate [Qvar] 2 puff IH BID 05/27/16 [History] Umeclidinium Brm/Vilanterol Tr [Anoro Ellipta 62.5-25 MCG] 1 puff IH DAILY 05/27/16 [History] Allopurinol [Zyloprim] 300 mg PO DAILY 01/16/17 [History] Metoprolol Succinate 200 mg PO DAILY 01/22/19 [History] amLODIPine [Norvasc] 5 mg PO DAILY 01/22/19 [History] metFORMIN [Glucophage] 500 mg PO BID 01/22/19 [History] Albuterol/Ipratropium [DuoNeb 3.0-0.5 MG/3 ML] 3 ml INH Q6H PRN #30 neb 01/24/19 [Rx] Past Medical History HEENT History: Reports: None Other HEENT History: Pt states slightly [place] to both ears Cardiovascular History: Reports: High Cholesterol, Hypertension Respiratory History: Reports: Asthma, COPD Gastrointestinal History: Reports: None Other Genitourinary History: URETEROLITHIASIS; NEPHROLITHIASIS Musculoskeletal History: Reports: Gout Other Musculoskeletal History: LUMBOSACRAL SPONDYLOSIS WITHOUT MYELOPATHY; L1-2 THROUGH L5-S1 DEGENERATIVE DISC DISEASE; MODERATE CENTRAL L1-2 , MODERATE CENTRAL AND BILATERAL FORAMINAL L4-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; 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; Neurological History: Reports: None Psychiatric History: Reports: None Endocrine/Metabolic History: Reports: None Hematologic History: Reports: None Immunologic History: Reports: None Oncologic (Cancer) History: Reports: None Other Dermatologic History: swelling and redness from hornet bite; ONYCHOMYCOSIS OF TOENAIL - Infectious Disease History Infectious Disease History: Reports: Chicken Pox, Measles - Past Surgical History Other GI Surgeries/Procedures: BARIATIC PROCEDURE-LAP BAND; HEMORRHOIDECTOMY; Other Musculoskeletal Surgeries/Procedures:: CARPAL TUNNEL RELEASE, CORTISONE SHOT IN RIGHT SHOULDER Social & Family History - Family History Family Medical History: No Pertinent Family History - Caffeine Use Caffeine Use: Reports: Coffee - Living Situation & Occupation Living situation: Reports: Occupation: Employed ED ROS GENERAL - Review of Systems Review Of Systems: Comprehensive ROS is negative, except as noted in HPI. ED EXAM, GENERAL - Physical Exam Exam: See Below Exam Limited By: No Limitations General Appearance: Alert, WD/WN, No Apparent Distress, Obese Eye Exam: Bilateral Eye: EOMI, Normal Inspection, PERRL Ears: Normal External Exam, Hearing Grossly Normal Nose: Normal Inspection, Normal Mucosa, No Blood Throat/Mouth: Normal Inspection, Normal Lips, Normal Teeth, Normal Gums, Normal Oropharynx, Normal Voice, No Airway Compromise Head: Atraumatic, Normocephalic Neck: Normal Inspection, Supple, Non-Tender, Full Range of Motion Respiratory/Chest: No Respiratory Distress, Lungs Clear, Normal Breath Sounds, No Accessory Muscle Use, Chest Non-Tender Cardiovascular: Normal Peripheral Pulses, Regular Rate, Rhythm, No Edema, No Gallop, No JVD, No Murmur, No Rub GI/Abdominal: Normal Bowel Sounds, Soft, Non-Tender, No Distention, No Abnormal Bruit, Other (Benign obese abdomen) (Male) Exam: Deferred Rectal (Males) Exam: Deferred Back Exam: Normal Inspection, Full Range of Motion. No: CVA Tenderness (L), CVA Tenderness (R), Vertebral Tenderness Extremities: Normal Inspection, Normal Range of Motion, Non-Tender, Normal Capillary Refill, No Pedal Edema Neurological: Alert, Oriented, CN II-XII Intact, Normal Cognition, Normal Gait, No Motor/Sensory Deficits Psychiatric: Normal Affect, Normal Mood Skin Exam: Warm, Dry, Intact, Normal Color, No Rash #1 Interpretation EKG Date: 06/24/20 Time: 13:38 Rhythm: Other (SR) Rate (Beats/Min): 77 [place]: LAD-Left [place] Deviation P-Wave: Present QRS: Normal ST-T: Normal QT: Normal Comparison: NA - No Prior EKG #2 Interpretation EKG Date: 06/24/20 Time: 18:00 Rhythm: Other (SR) Rate (Beats/Min): 83 [place]: Normal P-Wave: Present QRS: Normal ST-T: Normal QT: Normal Comparison: No Change Course - Vital Signs Last Recorded V/S: Last Vital Signs Temp 98.3 F 06/24/20 16:55 Pulse 84 06/24/20 16:55 Resp 22 H 06/24/20 16:55 BP 166/86 H 06/24/20 16:55 Pulse Ox 94 L 06/24/20 16:55 Orthostatic Blood Pressure [ 163/94 Standing] Orthostatic Blood Pressure [ 167/103 Sitting] Orthostatic Blood Pressure [ 147/86 Supine] - Orders/Labs/Meds Orders: Active Orders 24 hr Category Date Time Status Blood Glucose Check, Bedside [RC] ONETIME Care 06/24/20 13:24 Active EKG 12 Lead [EKG Documentation Completion] [RC] STAT Care 06/24/20 13:24 Active EKG Documentation Completion [RC] ROUTINE Care 06/24/20 18:00 Active Orthostatic Vital Signs [RC] ASDIRECTED Care 06/24/20 13:26 Active Peripheral IV Care [RC] . DIRECTED Care 06/24/20 13:26 Active Carotid Comp [US] Stat Exams 06/24/20 15:30 Stop Req Echo Comp wo Cont [US] Stat Exams 06/24/20 15:30 Ordered INR,PT,PROTHROMBIN TIME [COAG] Stat Lab 06/24/20 18:39 Ordered PTT,PARTIAL THROMBOPLSTIN TIME [COAG] Stat Lab 06/24/20 18:39 Ordered Heparin Sodium/0.45% NaCl [Heparin 25,000 Units in 1/2 Med 06/24/20 18:45 Ordered NS 500 ML] 25,000 units in 500 ml IV TITRATE Sodium Chloride 0.9% [Saline Flush] Med 06/24/20 13:25 Active 10 ml FLUSH ASDIRECTED PRN Peripheral IV Insertion Adult [OM.PC] Stat Oth 06/24/20 13:24 Ordered Medication Orders Heparin Sodium/Sodium Chloride (Heparin 25,000 Units In 1/2 Ns 500 Ml) 25,000 units in 500 mls @ 36.578 mls/hr IV TITRATE MAAME; Protocol Sodium Chloride (Sodium Chloride 0.9% 10 Ml Syringe) 10 ml FLUSH ASDIRECTED PRN PRN Reason: Keep Vein Open Labs: Laboratory Tests 06/24/20 06/24/20 06/24/20 Range/Units 13:48 13:49 13:49 WBC 7.8 (5.0-10.0) 10^3/uL RBC 4.86 (4.6-6.2) 10^6/uL Hgb 14.3 (14.0-18.0) g/dL Hct 42.9 (40.0-54.0) % MCV 88.3 (80-100) fL MCH 29.4 (27.0-34.0) pg MCHC 33.3 (33.0-35.0) g/dL Plt Count 245 (150-450) 10^3/uL Neut % (Auto) 54.2 (42.2-75.2) % Lymph % (Auto) 31.3 (20.5-50.1) % [place] % (Auto) 10.7 H (2-8) % Eos % (Auto) 3.3 H (1.0-3.0) % Baso % (Auto) 0.5 (0.0-1.0) % PT 10.0 (9.0-12.0) SEC INR 1.0 (0.9-1.2) APTT 21.7 L (22.0-34.0) SEC Sodium (136-145) mmol/L Potassium (3.5-5.1) mmol/L Chloride (98-107) mmol/L Carbon Dioxide (21-32) mmol/L Anion Gap (7-13) mEq/L BUN (7-18) mg/dL Creatinine (0.70-1.30) mg/dL Est Cr Clr Drug Dosing mL/min Estimated GFR (MDRD) BUN/Creatinine Ratio (No establ ref range) Glucose (70-99) mg/dL POC Glucose 108 H (70-99) mg/dL Calcium (8.5-10.1) mg/dL Magnesium (1.8-2.4) mg/dL Total Bilirubin (0.2-1.0) mg/dL AST (15-37) U/L ALT (16-63) U/L Alkaline Phosphatase (46-116) U/L Troponin I (0.000-0.056) ng/mL B-Natriuretic Peptide (0-100) pg/ml Total Protein (6.4-8.2) g/dL Albumin (3.4-5.0) g/dL Globulin Albumin/Globulin Ratio TSH, Ultra Sensitive (0.36-3.74) uIU/mL Urine Color (YELLOW) Urine Appearance (CLEAR) Urine pH (5.0-9.0) Ur Specific [place] (1.005-1.030) Urine Protein (NEGATIVE) Urine Glucose (UA) (NEGATIVE) Urine Ketones (NEGATIVE) Urine Occult Blood (NEGATIVE) Urine Nitrite (NEGATIVE) Urine Bilirubin (NEGATIVE) Urine Urobilinogen (0.2-1.0) mg/dL Ur Leukocyte Esterase (NEGATIVE) Urine Opiates Screen (NEGATIVE) Ur Oxycodone Screen (NEGATIVE) Urine Methadone Screen (NEGATIVE) Ur Barbiturates Screen (NEGATIVE) U Tricyclic Antidepress (NEGATIVE) Ur Phencyclidine Scrn (NEGATIVE) Ur Amphetamine Screen (NEGATIVE) U Methamphetamines Scrn (NEGATIVE) Urine MDMA Screen (NEGATIVE) U Benzodiazepines Scrn (NEGATIVE) Urine Cocaine Screen (NEGATIVE) U Marijuana (THC) Screen (NEGATIVE) Ethyl Alcohol (0) mg/dL 06/24/20 06/24/20 06/24/20 Range/Units 13:49 13:57 13:57 WBC (5.0-10.0) 10^3/uL RBC (4.6-6.2) 10^6/uL Hgb (14.0-18.0) g/dL Hct (40.0-54.0) % MCV (80-100) fL MCH (27.0-34.0) pg MCHC (33.0-35.0) g/dL Plt Count (150-450) 10^3/uL Neut % (Auto) (42.2-75.2) % Lymph % (Auto) (20.5-50.1) % [place] % (Auto) (2-8) % Eos % (Auto) (1.0-3.0) % Baso % (Auto) (0.0-1.0) % PT (9.0-12.0) SEC INR (0.9-1.2) APTT (22.0-34.0) SEC Sodium 139 (136-145) mmol/L Potassium 4.0 (3.5-5.1) mmol/L Chloride 103 (98-107) mmol/L Carbon Dioxide 27 (21-32) mmol/L Anion Gap 13.0 (7-13) mEq/L BUN 12 (7-18) mg/dL Creatinine 0.96 (0.70-1.30) mg/dL Est Cr Clr Drug Dosing 89.81 mL/min Estimated GFR (MDRD) > 60 BUN/Creatinine Ratio 12.5 (No establ ref range) Glucose 111 H (70-99) mg/dL POC Glucose (70-99) mg/dL Calcium 8.4 L (8.5-10.1) mg/dL Magnesium 2.2 (1.8-2.4) mg/dL Total Bilirubin 0.7 (0.2-1.0) mg/dL AST 20 (15-37) U/L ALT 40 (16-63) U/L Alkaline Phosphatase 68 (46-116) U/L Troponin I 0.063 H* (0.000-0.056) ng/mL B-Natriuretic Peptide 21 (0-100) pg/ml Total Protein 7.5 (6.4-8.2) g/dL Albumin 3.8 (3.4-5.0) g/dL Globulin 3.7 Albumin/Globulin Ratio 1.0 TSH, Ultra Sensitive 0.95 (0.36-3.74) uIU/mL Urine Color Yellow (YELLOW) Urine Appearance Clear (CLEAR) Urine pH 7.0 (5.0-9.0) Ur Specific [place] 1.025 (1.005-1.030) Urine Protein Negative (NEGATIVE) Urine Glucose (UA) Negative (NEGATIVE) Urine Ketones Negative (NEGATIVE) Urine Occult Blood Negative (NEGATIVE) Urine Nitrite Negative (NEGATIVE) Urine Bilirubin Negative (NEGATIVE) Urine Urobilinogen 0.2 (0.2-1.0) mg/dL Ur Leukocyte Esterase Negative (NEGATIVE) Urine Opiates Screen Negative (NEGATIVE) Ur Oxycodone Screen Negative (NEGATIVE) Urine Methadone Screen Negative (NEGATIVE) Ur Barbiturates Screen Negative (NEGATIVE) U Tricyclic Antidepress Negative (NEGATIVE) Ur Phencyclidine Scrn Negative (NEGATIVE) Ur Amphetamine Screen Negative (NEGATIVE) U Methamphetamines Scrn Negative (NEGATIVE) Urine MDMA Screen Negative (NEGATIVE) U Benzodiazepines Scrn Negative (NEGATIVE) Urine Cocaine Screen Negative (NEGATIVE) U Marijuana (THC) Screen Negative (NEGATIVE) Ethyl Alcohol < 3 (0) mg/dL 06/24/20 Range/Units 18:00 WBC (5.0-10.0) 10^3/uL RBC (4.6-6.2) 10^6/uL Hgb (14.0-18.0) g/dL Hct (40.0-54.0) % MCV (80-100) fL MCH (27.0-34.0) pg MCHC (33.0-35.0) g/dL Plt Count (150-450) 10^3/uL Neut % (Auto) (42.2-75.2) % Lymph % (Auto) (20.5-50.1) % [place] % (Auto) (2-8) % Eos % (Auto) (1.0-3.0) % Baso % (Auto) (0.0-1.0) % PT (9.0-12.0) SEC INR (0.9-1.2) APTT (22.0-34.0) SEC Sodium (136-145) mmol/L Potassium (3.5-5.1) mmol/L Chloride (98-107) mmol/L Carbon Dioxide (21-32) mmol/L Anion Gap (7-13) mEq/L BUN (7-18) mg/dL Creatinine (0.70-1.30) mg/dL Est Cr Clr Drug Dosing mL/min Estimated GFR (MDRD) BUN/Creatinine Ratio (No establ ref range) Glucose (70-99) mg/dL POC Glucose (70-99) mg/dL Calcium (8.5-10.1) mg/dL Magnesium (1.8-2.4) mg/dL Total Bilirubin (0.2-1.0) mg/dL AST (15-37) U/L ALT (16-63) U/L Alkaline Phosphatase (46-116) U/L Troponin I 0.083 H* (0.000-0.056) ng/mL B-Natriuretic Peptide (0-100) pg/ml Total Protein (6.4-8.2) g/dL Albumin (3.4-5.0) g/dL Globulin Albumin/Globulin Ratio TSH, Ultra Sensitive (0.36-3.74) uIU/mL Urine Color (YELLOW) Urine Appearance (CLEAR) Urine pH (5.0-9.0) Ur Specific [place] (1.005-1.030) Urine Protein (NEGATIVE) Urine Glucose (UA) (NEGATIVE) Urine Ketones (NEGATIVE) Urine Occult Blood (NEGATIVE) Urine Nitrite (NEGATIVE) Urine Bilirubin (NEGATIVE) Urine Urobilinogen (0.2-1.0) mg/dL Ur Leukocyte Esterase (NEGATIVE) Urine Opiates Screen (NEGATIVE) Ur Oxycodone Screen (NEGATIVE) Urine Methadone Screen (NEGATIVE) Ur Barbiturates Screen (NEGATIVE) U Tricyclic Antidepress (NEGATIVE) Ur Phencyclidine Scrn (NEGATIVE) Ur Amphetamine Screen (NEGATIVE) U Methamphetamines Scrn (NEGATIVE) Urine MDMA Screen (NEGATIVE) U Benzodiazepines Scrn (NEGATIVE) Urine Cocaine Screen (NEGATIVE) U Marijuana (THC) Screen (NEGATIVE) Ethyl Alcohol (0) mg/dL Meds: Medications Generic Name Dose Route Start Last Admin Trade Name Freddie PRN Reason Stop Dose Admin Heparin Sodium/Sodium Chloride 25,000 units in 500 mls @ 36.578 mls/hr 06/24/20 18:45 Heparin 25,000 Units In 1/2 Ns 500 Ml IV TITRATE MAAME Protocol 12 UNITS/KG/HR Sodium Chloride 10 ml 06/24/20 13:25 Sodium Chloride 0.9% 10 Ml Syringe FLUSH ASDIRECTED PRN Keep Vein Open Discontinued Medications Generic Name Dose Route Start Last Admin Trade Name Freq PRN Reason Stop Dose Admin Aspirin 324 mg 06/24/20 18:40 06/24/20 18:54 Aspirin 81 Mg Tab.Chew PO 06/24/20 18:41 324 mg ONETIME ONE Administration Heparin Sodium (Porcine) 4,000 units 06/24/20 18:39 Heparin Sodium 5,000 Units/Ml Vial IVPUSH 06/24/20 18:40 .BOLUS ONE - Radiology Interpretation Free Text/Narrative:: XR Chest: No acute process per Rad. report. CT Head: No sign of acute intracranial bleed. Chronic multi-infarct ischemic changes per Rad. report. ECHO: per tech: poor quality study do to body habitus, unable to assess for accurate measurements. - Re-Assessments/Exams Free Text/Narrative Re-Assessment/Exam: 06/24/20 15:[address] Connors (pt's PCP), he advises admission to observation due to syncope with pt's risk factors of DM and HTN. Dr. Connors agrees with ECHO and carotid US, and agrees to see the pt for outpt cardiac stress test if observation r/o is negative. Pt is aware that he would need to be transferred to a higher level of care if his troponin increases, or if any other new signs or symptoms develop. Dr. Montse Clarke' present in ER to consult on the pt to determine if he is comfortable with the admission. Departure - Departure Time of Disposition: 15:38 Disposition: DC/Tfer to Acute Hospital 02 Reason for Transfer *Q: Other Condition: Undetermined Clinical Impression: Elevated troponin, Non-ST elevated myocardial infarction (non-STEMI) Syncope Qualifiers: Syncope type: unspecified Qualified Code(s): R55 - Syncope and collapse Hypertension Qualifiers: Hypertension type: unspecified Qualified Code(s): I10 - Essential (primary) hy pertension Forms: ED Department Discharge, Interfacility Transfer DARVIN Sepsis Event Note (ED) - Focused Exam Vital Signs: Vital Signs Temp Pulse Resp BP Pulse Ox 06/24/20 16:55 98.3 F 84 22 H 166/86 H 94 L 06/24/20 13:40 98.8 F 80 20 176/96 H 97 - My Orders Last 24 Hours: My Active Orders 06/24/20 13:24 Blood Glucose Check, Bedside [RC] ONETIME EKG 12 Lead [EKG Documentation Completion] [RC] STAT Peripheral IV Insertion Adult [OM.PC] Stat 06/24/20 13:25 Sodium Chloride 0.9% [Saline Flush] 10 ml FLUSH ASDIRECTED PRN 06/24/20 13:26 Orthostatic Vital Signs [RC] ASDIRECTED Peripheral IV Care [RC] . DIRECTED 06/24/20 15:30 Carotid Comp [US] Stat Echo Comp wo Cont [US] Stat 06/24/20 18:00 EKG Documentation Completion [RC] ROUTINE 06/24/20 18:39 INR,PT,PROTHROMBIN TIME [COAG] Stat PTT,PARTIAL THROMBOPLSTIN TIME [COAG] Stat 06/24/20 18:45 Heparin Sodium/0.45% NaCl [Heparin 25,000 Units in 1/2 NS 500 ML] 25,000 units in 500 ml IV TITRATE - Assessment/Plan Last 24 Hours: My Active Orders 06/24/20 13:24 Blood Glucose Check, Bedside [RC] ONETIME EKG 12 Lead [EKG Documentation Completion] [RC] STAT Peripheral IV Insertion Adult [OM.PC] Stat 06/24/20 13:25 Sodium Chloride 0.9% [Saline Flush] 10 ml FLUSH ASDIRECTED PRN 06/24/20 13:26 Orthostatic Vital Signs [RC] ASDIRECTED Peripheral IV Care [RC] . DIRECTED 06/24/20 15:30 Carotid Comp [US] Stat Echo Comp wo Cont [US] Stat 06/24/20 18:00 EKG Documentation Completion [RC] ROUTINE 06/24/20 18:39 INR,PT,PROTHROMBIN TIME [COAG] Stat PTT,PARTIAL THROMBOPLSTIN TIME [COAG] Stat 06/24/20 18:45 Heparin Sodium/0.45% NaCl [Heparin 25,000 Units in 1/2 NS 500 ML] 25,000 units in 500 ml IV TITRATE
[2020-06-24] MEDS ORDERED: Sodium Chloride 0.9% 10 ML Syringe FLUSH PRN (13:25)
--- NOTE | 2020-06-24 14:00 | CT ---
EXAMINATION: Head wo Cont SEX: Male AGE: 60 years CLINICAL HISTORY: 60-year-old male with episode of severe (malignant) hypertension and syncope. No blood thinners. No known head trauma. Scan technique: Volume acquisition of data emergency unenhanced CT scan of the head and brain obtained with the patient lying supine on the Siemens multislice scanner [place], [place]. All data archived in the PACS system for storage, reformatting axial/sagittal/coronal planes and study. No comparison exams. Interpretation: 1. Uniformly thick bony calvarium. Dense midline falx calcifications. Midline pineal/symmetric choroid plexus calcifications. 2. No sign of skull fracture, underlying brain contusion or abnormal extracerebral/intracranial epidural or subdural hematoma. 3. Isolated round ischemic lesions confirmed in the parietal lobes, bilaterally (respectively axial slice #20 on the right; and axial slice #18, on the left). No associated edema or mass effect on the underlying mirror-image normal ventricular system. No signs of encephalomalacia with several other scattered tiny nondescript areas of decreased attenuation suggesting microvascular ischemic change (hypertension). 4. No evidence of acute intracerebral, intraventricular or subarachnoid bleed. 5. No supratentorial or posterior fossa mass lesion. No hydrocephalus. 6. Symmetric clear pneumatization of the paranasal and mastoid sinuses. CONCLUSION: No sign of acute intracranial bleed. Chronic multi-infarct ischemic changes.
--- NOTE | 2020-06-24 14:04 | CR ---
EXAMINATION: Chest 1V Frontal SEX: Male AGE: 60 years CLINICAL HISTORY: 60-year-old hypertensive (malignant systolic pressure greater than 220) male. Syncopal episode. "Multi-infarct ischemic changes" noted on CT of the head. Abnormal comparison CXR 21 November 2019. Interpretation: 1. Mild prominence left ventricular configuration but without sign of pulmonary vascular congestion, cephalization of flow, alveolar edema or dependent pleural effusion. 2. *No residual evidence of the peripheral interstitial "groundglass" densities demonstrated on 21 November 2019 CXR. 3. No new lung mass or hilar lymphadenopathy. 4. No focal alveolar infiltrates or peripheral interstitial lung densities. 5. No atelectasis or collapse. 6 no pneumothorax or pneumomediastinum. CONCLUSION: No acute new cardiopulmonary abnormality.
[2020-06-24 14:18] LABS: PTT,PARTIAL THROMBOPLSTIN TIME 21.7 SEC (22.0-34.0)
[2020-06-24 14:21] LABS: CHLORIDE,CL 103 mmol/L (98-107); SODIUM,NA 139 mmol/L (136-145)
[2020-06-24] MEDS ORDERED: Heparin Sodium 5,000 Units/ML Vial IVPUSH ONE (18:39)
[2020-06-24] MEDS ORDERED: Aspirin 81 MG Tab.Chew PO ONE (18:40)
[2020-06-24] MEDS ORDERED: Heparin Sodium/0.45% NaCl 25,000 UNITS/500 ML BAG IV SCH (18:45)
[2020-06-24 19:12] LABS: PTT,PARTIAL THROMBOPLSTIN TIME 21.6 SEC (22.0-34.0)
[2020-06-24 20:14] VITALS: BP 134/106; PULSE 84
== END 2020-06-24 20:51 ==
LOC: DL.ED 13:15
DX: I21.4 Non-ST elevation (NSTEMI) myocardial infarction (principal); E78.00 Pure hypercholesterolemia, unspecified; I10 Essential (primary) hypertension; J44.9 Chronic obstructive pulmonary disease, unspecified; R79.89 Other specified abnormal findings of blood chemistry; Z88.8 Allergy status to other drugs, medicaments and biological substances; Z79.899 Other long term (current) drug therapy
CPT/HCPCS: 36415; 70450; 71045; 80053; 80305-QW; 80307; 81003; 82947; 83735; 83880; 84443; 84484; 85025; 85610; 85730; 93005; 93010; 96365; 96366; 99285; 99285-25; A9270-GY; J1644

== ENCOUNTER 2022-08-17 12:32 | Emergency (ER) | payer BC ==
[2022-08-17 12:44] LABS: BASOPHILS PERCENT AUTO 0.4 % (0.0-1.0); HEMATOCRIT 34.6 % (40.0-54.0); HEMOGLOBIN 11.5 g/dL (14.0-18.0); LYMPHOCYTES PERCENT AUTO 23.2 % (20.5-50.1); MEAN CORPUSCULAR HEMOGLOBIN 29.6 pg (27.0-34.0); MEAN CORPUSCULAR HGB CONC 33.2 g/dL (33.0-35.0); MEAN CORPUSCULAR VOLUME 89.2 fL (80-100); MONOCYTES PERCENT AUTO 9.4 % (2-8); PLATELET COUNT,PLT 293 10^3/uL (150-450); RED BLOOD CELL COUNT 3.88 10^6/uL (4.6-6.2); WHITE BLOOD CELL COUNT,WBC 7.2 10^3/uL (5.0-10.0)
[2022-08-17 13:01] LABS: ALANINE AMINOTRANSFERASE,ALT 27 U/L (16-63); ALBUMIN 3.9 g/dL (3.4-5.0); ALKALINE PHOSPHATASE 82 U/L (46-116); AMYLASE 90 U/L (25-115); ANION GAP 14.7 mEq/L (7-13); ASPARTATE AMNIOTRANSFERASE,AST 18 U/L (15-37); BILIRUBIN TOTAL 0.7 mg/dL (0.2-1.0); BLOOD UREA NITROGEN,BUN 34 mg/dL (7-18); BUN/CREATININE RATIO 17.3 (No establ ref range); C-REACTIVE PROTEIN 0.4 mg/dL (0.0-0.9); CARBON DIOXIDE,CO2 25 mmol/L (21-32); CHLORIDE,CL 103 mmol/L (98-107); CREATININE 1.96 mg/dL (0.70-1.30); EST CRCL DRUG DOSING (CG) 40.35 mL/min; ESTIMATED GFR 38 mL/min (>=60); ETHANOL BLOOD MEDICAL < 3 mg/dL (0); GLUCOSE RANDOM 127 mg/dL (70-99); LIPASE 367 U/L (73-393); MAGNESIUM 2.1 mg/dL (1.8-2.4); POTASSIUM,K 4.7 mmol/L (3.5-5.1); PROTEIN TOTAL,TP 7.7 g/dL (6.4-8.2); SODIUM,NA 138 mmol/L (136-145)
[2022-08-17 13:17] LABS: LACTIC ACID 1.9 mmol/L (0.4-2.0)
[2022-08-17 13:22] LABS: B-TYPE NATRIURETIC PEPTIDE,BNP 14 pg/ml (0-100)
[2022-08-17] MEDS ORDERED: Sodium Chloride 0.9% 1,000 ML IV ONE (13:37)
[2022-08-17 15:19] LABS: APPEARANCE,URINE CLEAR (CLEAR); BILIRUBIN,URINE NEGATIVE (NEGATIVE); COLOR,URINE YELLOW (YELLOW); GLUCOSE,URINE NEGATIVE (NEGATIVE); KETONES,URINE TRACE (NEGATIVE); LEUKOCYTE ESTERASE,URINE NEGATIVE (NEGATIVE); NITRITE,URINE NEGATIVE (NEGATIVE); OCCULT BLOOD,URINE NEGATIVE (NEGATIVE); PROTEIN,URINE TRACE (NEGATIVE); UROBILINOGEN,URINE 0.2 mg/dL (0.2-1.0)
[2022-08-17 15:23] LABS: AMPHETAMINES,URINE NEGATIVE (NEGATIVE); BARBITURATES,URINE NEGATIVE (NEGATIVE); BENZODIAZEPINE,URINE NEGATIVE (NEGATIVE); MDMA (ECSTASY), URINE NEGATIVE (NEGATIVE); METHADONE,URINE NEGATIVE (NEGATIVE); METHAMPHETAMINES,URINE NEGATIVE (NEGATIVE); OPIATES,URINE NEGATIVE (NEGATIVE); OXYCODONE,URINE NEGATIVE (NEGATIVE); PHENCYCLIDINE,URINE NEGATIVE (NEGATIVE); TCA,URINE NEGATIVE (NEGATIVE)
[2022-08-17 15:33] LABS: BACTERIA,URINE FEW /HPF (0-FEW/HPF); EPITHELIAL CELLS,URINE FEW /HPF (NOT SEEN); HYALINE CASTS,URINE MODERATE; MUCUS,URINE MODERATE /LPF (NOT SEEN); RBC,URINE 0-5 /HPF (0-5)
[2022-08-17 16:05] VITALS: BP 121/74; PULSE 74
== END 2022-08-17 15:56 | disposition home or self-care (01) ==
LOC: DL.ED 12:32
DX: E86.0 Dehydration (principal); I95.2 Hypotension due to drugs; J44.9 Chronic obstructive pulmonary disease, unspecified; I10 Essential (primary) hypertension; E11.9 Type 2 diabetes mellitus without complications; E66.9 Obesity, unspecified; E78.00 Pure hypercholesterolemia, unspecified; Z88.8 Allergy status to other drugs, medicaments and biological substances; Z86.718 Personal history of other venous thrombosis and embolism; Z79.01 Long term (current) use of anticoagulants; Z79.51 Long term (current) use of inhaled steroids; Z79.84 Long term (current) use of oral hypoglycemic drugs; Z79.899 Other long term (current) drug therapy; Z86.16 Personal history of COVID-19; Z20.822 Contact with and (suspected) exposure to COVID-19
CPT/HCPCS: 36415; 71046; 80053; 80305; 80307; 81001; 82150; 82947; 83605; 83690; 83735; 83880; 85025; 86140; 87040; 87635; 87804; 93005; 93010; 96360; 99284; 99285; J7030; U0002